=== PATIENT | female | born 1945 | race Caucasian/White ===

== ENCOUNTER → 2017-10-22 06:24 | Outpatient (CLI) | payer MEDICARE, OTHER, SELFPAY ==
--- NOTE | 2017-10-22 08:57 | STRESSREP ---
Stress Test Report Pharmacologic myocardial perfusion stress test. 72-year-old lady with a history of chest pain. Stress protocol: Resting EKG demonstrates normal sinus rhythm with a rate of 72 bpm normal intervals and noted resting blood pressure is 178/78 mmHg. 0.4 mg of regadenoson was infused per usual protocol followed by rapid intravenous saline flush injection continuous EKG monitoring was performed. The maximum heart rate attained was 91 bpm which was 60% of the maximum predicted heart rate the maximum workload attained was 1 metabolic equivalent. At rest there were no ST or T-wave changes noted to suggest ischemia and at peak infusion no ST or T-wave changes were noted suggest ischemia. The resting blood pressure was 178/78. Myocardial perfusion protocol. 12.0 mCi of technetium 99m sestamibi was injected at rest. 0.4 mg regadenoson was infused per usual protocol. At peak infusion 34.0 mCi of technetium 99m sestamibi was injected. Stress images were obtained. Stress and rest images were reconstructed and compared in the short axis vertical long and horizontal long axis. Gated images were also obtained. Perfusion SPECT analysis: Review of the stress images demonstrate normal uptake of tracer noted in all areas of the myocardium. The resting images similarly demonstrate normal uptake of tracer noted in all areas of the myocardium. No areas of reversibility are noted suggest ischemia. Gated SPECT analysis. Gated ejection fraction is 76%. Conclusion: Normal pharmacologic myocardial perfusion stress test. Preserved ejection fraction.
--- NOTE | 2017-10-22 09:01 | STRESSREP_ITS ---
Stress Test Report Pharmacologic myocardial perfusion stress test. 72-year-old lady with a history of chest pain. Stress protocol: Resting EKG demonstrates normal sinus rhythm with a rate of 72 bpm normal intervals and noted resting blood pressure is 178/78 mmHg. 0.4 mg of regadenoson was infused per usual protocol followed by rapid intravenous saline flush injection continuous EKG monitoring was performed. The maximum heart rate attained was 91 bpm which was 60% of the maximum predicted heart rate the maximum workload attained was 1 metabolic equivalent. At rest there were no ST or T-wave changes noted to suggest ischemia and at peak infusion no ST or T- wave changes were noted suggest ischemia. The resting blood pressure was 178/ 78. Myocardial perfusion protocol. 12.0 mCi of technetium 99m sestamibi was injected at rest. 0.4 mg regadenoson was infused per usual protocol. At peak infusion 34.0 mCi of technetium 99m sestamibi was injected. Stress images were obtained. Stress and rest images were reconstructed and compared in the short axis vertical long and horizontal long axis. Gated images were also obtained. Perfusion SPECT analysis: Review of the stress images demonstrate normal uptake of tracer noted in all areas of the myocardium. The resting images similarly demonstrate normal uptake of tracer noted in all areas of the myocardium. No areas of reversibility are noted suggest ischemia. Gated SPECT analysis. Gated ejection fraction is 76%. Conclusion: Normal pharmacologic myocardial perfusion stress test. Preserved ejection fraction.
== END ==
PROVIDERS: Family Provider Internal Medicine; PCP Internal Medicine; Visit Provider Internal Medicine
DX: R06.02 Shortness of breath (principal)
CPT/HCPCS: 78452; 93017; A9500; A4216; J2785

== ENCOUNTER → 2017-11-02 07:30 | Outpatient (CLI) | payer MEDICARE, OTHER, SELFPAY ==
--- NOTE | 2017-11-02 07:33 | CT_ITS ---
STUDY: CTA CHEST REASON FOR EXAM: Female, 72 years old. Shortness of breath. Cough. Hoarseness. RADIATION DOSAGE (If Supplied By Facility): CTDIvol = ( 13.12 ) mGy, DLP = ( 649.06 ) mGycm TECHNIQUE: The examination was performed with the intravenous administration of 100CC ml of Isovue 370 contrast material. Post-processing of the angiographic images was performed, with multiplanar reformation and 3D reconstruction. Individualized dose optimization techniques were used for this CT. COMPARISON: None. FINDINGS: Small bilateral benign appearing axillary lymph nodes. Normal enhancement of the main pulmonary artery and right and left pulmonary arteries. Normal enhancement of the bilateral peripheral pulmonary arteries. There is no demonstrated pulmonary embolism. There is atherosclerotic calcification of the aortic arch with tortuosity. There is no demonstrated aortic dissection. There are calcifications of the coronary arteries. Normal mediastinum. Normal hilar regions. Normal visualized trachea and bronchi. The lungs are well expanded. Calcified granuloma in the left lower lobe. Normal pleura. Normal chest wall structures. There are degenerative changes of thoracic spine. Normal visualized upper abdomen. CT/CTA Chest W/WO Contrast IMPRESSION: No acute abnormality is seen. Electronically Signed: Aden Stiles MD at 8:39 EST Tel [phone], Service support ,
== END ==
PROVIDERS: Family Provider Internal Medicine; PCP Internal Medicine; Visit Provider Internal Medicine Cardiovascular Disease
DX: R06.09 Other forms of dyspnea (principal); I26.99 Other pulmonary embolism without acute cor pulmonale
CPT/HCPCS: 71275; Q9967

== ENCOUNTER → 2022-01-15 | Outpatient (CLI) | payer MEDICARE, OTHER, SELFPAY ==
[2022-01-15] MEDS: Methacholine Chloride 18 ml neb kit INHALATION (13:06)
--- NOTE | 2022-01-15 14:49 | BRONCHALL_ITS ---
Bronchoprovocation Challenge Bronchoprovocation Challenge Bronchoprovocation Challenge: BRONCHOPROVOCATION STUDY INTERPRETATION Brief HPI: Patient is a 76 year old female, currently under the care of Dr. Arora, who presents to [facility] for a bronchoprovocation study secondary to diagnosis of cough. Respiratory therapist reports good effort and reproducible results. Interpretation: Initial spirometry showed no large airways obstructive ventilatory defect. The patient was then given increasingly concentrated doses of methacholine in a stepwise/standardized fashion, using a modified ATS protocol. The patient?s maximum reduction in FEV1 was 14 percent predicted. Impression: Negative Bronchoprovocation study. This is NOT consistent with the diagnosis of asthma.
== END | disposition home or self-care (01) ==
LOC: PSN 12:37
PROVIDERS: PCP Internal Medicine; Referring Provider Internal Medicine; Visit Provider Internal Medicine
DX: R94.2 Abnormal results of pulmonary function studies (principal); R05.9 Cough, unspecified
CPT/HCPCS: 94070; 95070

== ENCOUNTER → 2023-06-10 | Outpatient (CLI) | payer MEDICARE, OTHER, SELFPAY ==
[2023-06-10 16:16] LABS: Pathologist Comment May follow
[2023-06-10 16:50] LABS: Erythrocyte Sedimentation Rate 6 mm/hr (0-30)
[2023-06-10 16:52] LABS: Absolute Lymphocyte Count 2.05 X10^3/uL (0.83-4.51); Absolute Neutrophil Count 4.4 X10^3/uL (2.0-7.7); Basophil# 0.03 X10^3/uL; Basophil% 0.4 % (0-1); Eosinophil# 0.15 X10^3/uL; Eosinophils% 2.1 % (0-5); Hematocrit 43.4 % (37-47); Hemoglobin 13.4 g/dL (12.0-15.0); Lymphocyte # 2.05 X10^3/ul (0.83-4.51); Lymphocyte % 28.5 % (19-41); Mean Corp Hgb Conc 30.9 g/dL (32-36); Mean Corpuscular Hgb 29.5 pg (27.0-32.0); Mean Corpuscular Volume 95.4 fL (81-99); Mean Platelet Vol. 9.8 fl (6.2-12.0); Monocyte# 0.53 X10^3/uL; Monocyte% 7.4 % (0-10); NRBC Flagged by Analyzer 0 % (0-5); Neutrophil # 4.41 X10^3/uL (2.7-7.7); Neutrophil % 61.2 % (47-70); Platelet Count 315 K/mm3 (150-450); RBC Distribution Width CV 13.5 % (11.6-14.6); RBC Distribution Width SD 47.7 fl (35.1-43.9); Red Blood Count 4.55 M/mm3 (4.2-5.4); White Blood Count 7.2 K/mm3 (4.4-11.0)
[2023-06-10 17:18] LABS: Synovial Fld Mononuclear WBC # 0.072 10^3/ul; Synovial Fld Mononuclear WBC % 82.7 %; Synovial Fld Polynuclear WBC # 0.015 10^3/uL; Synovial Fld Polynuclear WBC % 17.3 %
[2023-06-10 17:51] LABS: RBC /Synovial Fluid 0.003 10^6/uL (0)
[2023-06-10 18:00] LABS: CRP 5.24 mg/L (0.0-3.0)
[2023-06-10 20:04] LABS: AUTO B FLUID DILUENT BKGD CT WBC <0.1 RBC <0.01 (W<.1,R<.01); CRYSTALS, BODY FLUID NO CRYSTALS SEEN
[2023-06-10 20:05] LABS: Appearance /Synovial Fluid Clear (CLEAR); Color / Synovial Fluid Yellow (Pale Yellow); Source / Synovial Fluid RT KNEE; Source- Body Fluid SYNOVIAL
[2023-06-10 20:14] LABS: Lymph 20 %; Monocyte /Synovial Fluid 56 %; Neutrophil 24 % (0-25)
[2023-06-10 20:17] LABS: Body Fluid QC Type(s) BF3Q,BF4Q
[2023-06-14 09:58] LABS: Pathologist Review Reviewed
== END | disposition home or self-care (01) ==
LOC: LAB 16:09
PROVIDERS: PCP Internal Medicine; Referring Provider Orthopaedic Surgery; Visit Provider Orthopaedic Surgery
DX: M17.0 Bilateral primary osteoarthritis of knee (principal); M25.561 Pain in right knee
CPT/HCPCS: 36415; 85025; 85652; 86140; 87070; 87075; 87205; 89050; 89051; 89060

== ENCOUNTER → 2023-08-19 | Outpatient (CLI) | payer MEDICARE, OTHER, SELFPAY ==
--- NOTE | 2023-08-19 17:34 | CT_ITS ---
EXAM: CT RIGHT LOWER EXTREMITY WITHOUT INTRAVENOUS CONTRAST CLINICAL INDICATION: UNILATERAL PRIMARY OSTEOARTHRITIS TECHNIQUE: Helically acquired images were obtained of the right lower extremity without intravenous contrast. 2-D reformats were performed by the technologist. CTDIvol = ( 19.07 ) mGy, DLP = ( 1357.04 ) mGycm This CT exam was performed using one or more of the following dose reduction techniques: automated exposure control, adjustment of the mA and/or kV according to patient size, and/or use of iterative reconstruction technique. COMPARISON: December 30, 2016 FINDINGS: BONES/JOINTS: Tricompartmental osteoarthrosis of the knee, severe at the medial femorotibial compartment. Moderate osteoarthrosis of the hip joint. Moderate suprapatellar joint effusion. Prominent plantar and posterior calcaneal enthesophytes. Ankle mortise is intact with no osteochondral lesions at the tibiotalar articulation. No acute or healing fracture or malalignment. No osteonecrosis. No other unusual lytic or sclerotic lesions of bone. SOFT TISSUES: Unremarkable. No soft tissue swelling or gas. No radiopaque foreign body. VASCULATURE: Peripheral vascular calcifications. REPRODUCTIVE: Multiple calcified fibroids of the uterus. No adnexal masses or free fluid in the pelvis. CT/Extremity Lower without Contra IMPRESSION: 1. Tricompartmental osteoarthrosis of the knee, severe at the medial femorotibial compartment. 2. Moderate suprapatellar joint effusion. 3. Fibroid uterus. Electronically Signed: Hasmukh Elizalde MD at 23:14 [facility] ,
== END | disposition home or self-care (01) ==
PROVIDERS: PCP Internal Medicine; Referring Provider Orthopaedic Surgery; Visit Provider Orthopaedic Surgery
DX: M17.0 Bilateral primary osteoarthritis of knee (principal)
CPT/HCPCS: 73700

== ENCOUNTER → 2023-09-24 | Outpatient (CLI) | payer MEDICARE, OTHER, SELFPAY ==
--- OUTSIDE RECORDS SUMMARY | 2023-09-24 12:11 | XMS RPT_ITS | CCD ---
Author Name Unknown Address [address] [place] [address] Organization [facility] Care Team Providers Care Vehicle Window Tinter Name Role Phone ADRY MALDONADO E Unavailable Unavailable GANTA, MARI Unavailable Unavailable ADRY MALDONADO Unavailable Unavailable IMCA Unavailable Unavailable IMCA Unavailable Unavailable ADRY MALDONADO Unavailable Unavailable ADRY MALDONADO Unavailable Unavailable IMCA Unavailable Unavailable Mari Arora MD Primary Care Provider [facility], [facility] Unavailable Mari Arora MD Primary Care Provider [facility], [facility] Unavailable Mari Arora MD Primary Care Provider [facility], [facility] Unavailable Mari Arora MD Primary Care Provider OLDER, MONSERRAT Referring Unavailable GANTA, MARI Primary Care Unavailable OLDER, MONSERRAT Attending Unavailable GANTA, MARI Primary Care Unavailable OLDER, MONSERRAT Referring Unavailable GANTA, MARI Primary Care Unavailable CARLOS HERNANDEZ Referring Unavailable GANTA, MARI Primary Care Unavailable GANTA, MARI Primary Care Unavailable OLDER, MONSERRAT Attending Unavailable GANTA, MARI Primary Care Unavailable OLDER, MONSERRAT Referring Unavailable GANTA, MARI Primary Care Unavailable OLDER, MONSERRAT Attending Unavailable GANTA, MARI Primary Care Unavailable TESTRAKE, RENETTA Attending Unavailable GANTA, MARI Referring Unavailable GANTA, MARI Primary Care Unavailable TESTRAKE, RENETTA Referring Unavailable GANTA, MARI Primary Care Unavailable OLDER, MONSERRAT Attending Unavailable GANTA, MARI Primary Care Unavailable Allergies Allergy Classification Reported Allergen(s) Allergy Type Date of Onset Reaction(s) Facility (20 sources) hydrALAZINE; Translations: [HYDRALAZINE] Drug Allergy 04-17-20 14 [facility] Repository (20 sources) hydroCHLOROthiazide / lisinopril; Translations: [LISINOPRIL-HYDROCHLOR OTHIAZIDE] Drug Allergy 03-10-20 [facility] Repository (20 sources) magnesium; Translations: [MAGNESIUM] Drug Allergy 12-22-19 14 [facility] Repository (3 sources) OTHER; Translations: [OTHER] Propensity to adverse reactions (disorder) 03-19-20 [facility] Repository (20 sources) PRINIZIDE [Other] Propensity to adverse reactions 03-19-20 [facility] Work Phone: (15 sources) predniSONE; Translations: [PREDNISONE] Drug Allergy 12-31-19 Itching [facility] Medications Current Medications Medication Drug Class(es) Dates Sig (Normalized) Sig (Original) traMADol hydrochloride 50 mg oral tablet (3 sources) Opioid Agonist Start: 06-11-2023 End: 06-18-2023 take 1 tablet by mouth twice daily as needed for pain traMADol (ULTRAM) 50 mg tablet Indications: Right knee pain, unspecified chronicity Take 1 tablet by mouth two times a day as needed for pain for up to 7 days. 14 tablet 0 06/11/2023 06/18/2023 Active Completed/Discontinued Medications Medication Drug Class(es) Dates Sig (Normalized) Sig (Original) [id number] 200 actuat albuterol 0.09 mg/actuat metered dose inhaler (13 sources) beta2-Adrenergic Agonist Start: 10-09-2022 take 2 puff(s) by inhalation every six hours as needed albuterol HFA (PROVENTIL HFA, VENTOLIN HFA) 90 mcg/actuation inhaler Indications: Wheezing Inhale 2 Puffs as instructed every 6 hours as needed. 1 Each 2 10/09/2022 Active Problems Active Problems Problem Classification Problem Date Documented Da te Episodic/Chronic Asthma (1 source) Cough variant asthma; Translations: [Cough variant asthma] Chronic Chronic kidney disease (2 sources) Chronic kidney disease stage 3A ; Translations: [Stage 3a chronic kidney disease (HCC)] Chronic Chronic kidney disease (1 source) Chronic kidney disease; Translations: [Stage 3a chronic kidney disease (HCC)] Onset: 03-11-2023 Diabetes mellitus with complications (20 sources) Type 2 diabetes mellitus; Translations: [Type 2 diabetes mellitus with other diabetic kidney complication] Onset: 11-22-2009 Chronic Disorders of lipid metabolism (20 sources) Mixed hyperlipidemia; Translations: [Mixed hyperlipidemia] Onset: 05-25-2006 06-12-2015 Chronic Essential hypertension (20 sources) Essential (primary) hypertension; Translations: [Essential hypertension] Onset: 03-10-2006 Chronic Other connective tissue disease (2 sources) Calcaneal spur of right foot; Translations: [Calcaneal spur, right foot] Episodic Other connective tissue disease (2 sources) Plantar fasciitis; Translations: [Plantar fascial fibromatosis] Episodic Other lower respiratory disease (1 source) Cough; Translations: [Cough] Episodic Other non-traumatic joint disorders (2 sources) Pain in right knee; Translations: [Pain in joint, lower leg] Onset: 06-11-2023 06-11-2023 Episodic Other nutritional; endocrine; and metabolic disorders (20 sources) Body mass index 40+ - severely obese; Translations: [Morbid (severe) obesity due to excess calories] Onset: 03-10-2006 07-18-2021 Chronic Other skin disorders (20 sources) Localized scleroderma; 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]] Onset: 09-27-2008 09-27-2008 Chronic Spondylosis; intervertebral disc disorders; other back problems (20 sources) Cervical spondylosis; Translations: [Spondylosis without myelopathy or radiculopathy, cervical region] Onset: 10-23-2010 10-23-2010 Chronic Thyroid disorders (20 sources) Hypothyroidism; Translations: [Hypothyroidism, unspecified] Onset: 01-22-2021 01-22-2021 Chronic Unclassified (1 source) Unknown / UNK(Unknown) Onset: 06-12-2015 Past or Other Problems Problem Classification Problem Date Documented Da te Episodic/Chronic Genitourinary symptoms and ill-defined conditions (20 sources) Albuminuria ; Translations: [Proteinuria, unspecified] Onset: 06-12-2015 06-12-2015 Episodic Other connective tissue disease (20 sources) Pain in left lower limb; Translations: [Pain in left leg] Onset: 12-25-2016 12-25-2016 Episodic Other connective tissue disease (1 source) Pain in left arm; Translations: [Pain of left upper extremity] Onset: 01-20-2023 Episodic Other connective tissue disease (1 source) Calcaneal spur, right foot; Translations: [Calcaneal spur of right foot] Onset: 09-23-2022 Episodic Other connective tissue disease (1 source) Plantar fascial fibromatosis; Translations: [Plantar fasciitis] Onset: 09-23-2022 Episodic Other connective tissue disease (1 source) Pain in right foot; Translations: [Pain in right foot] Onset: 09-22-2022 Episodic Other lower respiratory disease (1 source) Other forms of dyspnea; Translations: [Other forms of dyspnea] Onset: 10-27-2017 Episodic Other lower respiratory disease (1 source) Wheezing; Translations: [Wheezing] Onset: 10-09-2022 Episodic Other lower respiratory disease (1 source) Chronic cough; Translations: [Chronic cough] Onset: 10-09-2022 Episodic Other screening for suspected conditions (not mental disorders or infectious disease) (4 sources) Pulmonary function studies abnormal; Translations: [Abnormal results of pulmonary function studies] Onset: 12-10-2022 Episodic Pulmonary heart disease (1 source) Other pulmonary embolism without acute cor pulmonale; Translations: [Other pulmonary embolism without acute cor pulmonale] Onset: 10-27-2017 Episodic Results Test Name Value Interpretation Reference Range Facil it Vital Signs Date Time Vital Sign Value Performing Clinician Lee small 06-11-2023 13:43-0400 Diastolic blood pressure 76 mm[Hg] Monserrat Older HEALTH SPECIALIST.KST OPERATOR Work Phone: [facility] 06-11-2023 13:43-0400 Systolic blood pressure 143 mm[Hg] Monserrat Older HEALTH SPECIALIST.KST OPERATOR Work Phone: [facility] 06-11-2023 13:08-0400 Body weight 88.45 kg Monserrat Older HEALTH SPECIALIST.KST OPERATOR Work Phone: [facility] 06-11-2023 13:08-0400 Heart rate 92 /min Monserrat Older HEALTH SPECIALIST.KST OPERATOR Work Phone: [facility] 06-11-2023 13:08-0400 Respiratory rate 16 /min Monserrat Older HEALTH SPECIALIST.KST OPERATOR Work Phone: [facility] 06-11-2023 13:08-0400 SaO2% (BldA) [Mass fraction] 99 % Monserrat Older HEALTH SPECIALIST.KST OPERATOR Work Phone: [facility] 03-11-2023 14:04-0400 Diastolic blood pressure 72 mm[Hg] Monserrat Older HEALTH SPECIALIST.KST OPERATOR Work Phone: [facility] 03-11-2023 14:04-0400 Systolic blood pressure 130 mm[Hg] Monserrat Older HEALTH SPECIALIST.KST OPERATOR Work Phone: [facility] 03-11-2023 13:29-0400 Body weight 89.36 kg Monserrat Older HEALTH SPECIALIST.KST OPERATOR Work Phone: [facility] 03-11-2023 13:29-0400 Heart rate 80 /min Monserrat Older HEALTH SPECIALIST.KST OPERATOR Work Phone: [facility] 03-11-2023 13:29-0400 Respiratory rate 16 /min Monserrat Older HEALTH SPECIALIST.KST OPERATOR Work Phone: [facility] 12-10-2022 12:41-0400 Body weight 90.27 kg Monserrat Older HEALTH SPECIALIST.KST OPERATOR Work Phone: [facility] 12-10-2022 12:41-0400 Diastolic blood pressure 78 mm[Hg] Monserrat Older HEALTH SPECIALIST.KST OPERATOR Work Phone: [facility] 12-10-2022 12:41-0400 Heart rate 68 /min Monserrat Older HEALTH SPECIALIST.KST OPERATOR Work Phone: [facility] 12-10-2022 12:41-0400 Respiratory rate 16 /min Monserrat Older HEALTH SPECIALIST.KST OPERATOR Work Phone: [facility] 12-10-2022 12:41-0400 Systolic blood pressure 148 mm[Hg] Monserrat Older HEALTH SPECIALIST.KST OPERATOR Work Phone: [facility] 01-06-2022 13:44-0400 Diastolic blood pressure 68 mm[Hg] Mari Arora MD Work Phone: [facility] 01-06-2022 13:44-0400 Systolic blood pressure 118 mm[Hg] Mari Arora MD Work Phone: [facility] 01-06-2022 12:47-0400 Body temperature 96.6 [degF] Mari Arora MD Work Phone: [facility] 01-06-2022 12:47-0400 Body weight 93.53 kg Mari Arora MD Work Phone: [facility] 01-06-2022 12:47-0400 Heart rate 80 /min Mari Arora MD Work Phone: [facility] 01-06-2022 12:47-0400 Respiratory rate 22 /min Mari Arora MD Work Phone: [facility] 01-06-2022 12:47-0400 SaO2% (BldA) [Mass fraction] 94 % Mari Arora MD Work Phone: [facility] Encounters Encounter Date Encounter Type Care Provider Facility Start: 07-12-2023 Refill Monserrat Hathaway HEALTH SPECIALIST .KST OPERATOR Work Phone: [facility] Procedures Date Procedure Procedure Detail Performing Clinician Start: 02-12-2022 ALONSO SCREENING W SHARDA Leger HEALTH SPECIALIST.[employer]AF[employer]ATING AND VENTILATING Work Phone: Start: 02-12-2022 Mammography Screen Wst r Start: 08-12-2021 Adult depression scr eening assessment Triny Vazquez [facility] Work Phone: Start: 02-06-2021 Mammography Triny corona [facility] Work Phone: Start: 10-06-2012 Colonoscopy Triny corona [facility] Work Phone: Plan of Treatment Date Care Activity Detail Author Start: 05-15-2031 Urine microalbumin profile [facility] Start: 12-15-2025 COLOGUARD (FIT-DNA) COLOGUARD (FIT-D NA) [facility] Start: 06-11-2024 Annual PCP Team Phlebotomy Supervisor max Disease Visit Annual PCP Team Chronic Disease Visit [facility] Start: 06-11-2024 Hepatitis B Vaccine (1 of 3 - Risk 3-dose series) Hepatitis B Vaccine (1 of 3 - Risk 3-dose series) [facility] Immunizations Immunization Date Immunization Notes Care Provider Francia alexander 06-23-2023 COVID-19 vaccine, ag e 12+ yr, season (MODERNA) Monserrat Older HEALTH SPECIALIST.KST OPERATOR Work Phone: [facility] 06-02-2023 influenza, high dose seasonal, preservative-free Monserrat Older HEALTH SPECIALIST.KST OPERATOR Work Phone: [facility] Work Phone: 05-26-2022 COVID-19 booster vaccine, age 12+ yr, bivalent (PFIZER-BIONTECH) Mari Arora MD Work Phone: [facility] Work Phone: 05-26-2022 influenza, high dose seasonal, preservative-free Mari Arora MD Work Phone: [facility] Work Phone: 07-10-2021 COVID-19 vaccine, ag e 12+ yr (PFIZER-BIONTECH - PURPLE TOP) [facility] 05-15-2021 influenza, high dose seasonal, preservative-free Triny [facility] Work Phone: [facility] 05-15-2021 tetanus toxoid, redu donis diphtheria toxoid, and acellular pertussis vaccine, adsorbed [facility] Work Phone: [facility] 12-05-2020 COVID-19 vaccine, fu ll dose (MODERNA) Triny [facility] Work Phone: [facility] Work Phone: 11-07-2020 COVID-19 vaccine, fu ll dose (MODERNA) Triny [facility] Work Phone: [facility] Work Phone: 06-20-2020 influenza, seasonal, injectable [facility] 02-24-2019 zoster vaccine recombinant Triny [facility] Work Phone: [facility] 12-18-2018 zoster vaccine recombinant Triny Vazquez [facility] Work Phone: [facility] 05-30-2018 influenza, high dose seasonal, preservative-free Triny Vazquez [facility] Work Phone: [facility] 06-06-2016 influenza, high dose seasonal, preservative-free Triny Vazquez [facility] Work Phone: [facility] 06-12-2015 influenza, high dose seasonal, preservative-free Triny Vazquez [facility] Work Phone: [facility] 06-12-2015 pneumococcal conjuga te vaccine, 13 valent Triny Vazquez [facility] Work Phone: [facility] 02-28-2015 pneumococcal polysaccharide vaccine, 23 valent Triny Vazquez [facility] Work Phone: [facility] 05-24-2014 zoster vaccine, live Triny richmond [facility] Work Phone: [facility] 06-05-2013 influenza virus vacc ine, unspecified formulation Triny Vazquez [facility] Work Phone: [facility] 05-26-2012 influenza virus vacc ine, unspecified formulation Triny Vazquez [facility] Work Phone: [facility] Work Phone: 05-29-2011 influenza virus vacc ine, unspecified formulation Triny Vazquez [facility] Work Phone: [facility] Work Phone: 07-12-2009 influenza virus vacc ine, unspecified formulation Triny Vazquez [facility] Work Phone: [facility] Work Phone: 06-07-2008 influenza virus vacc ine, unspecified formulation Triny Vazquez [facility] Work Phone: [facility] Work Phone: 06-07-2008 pneumococcal polysaccharide vaccine, 23 valent Triny Andradego [facility] Work Phone: [facility] Work Phone: 10-05-2006 tetanus toxoid, redu donis diphtheria toxoid, and acellular pertussis vaccine, adsorbed Triny [facility] Work Phone: [facility] Work Phone: 07-15-2006 influenza virus vacc ine, unspecified formulation Triny Vazquez [facility] Work Phone: [facility] Work Phone: Payers Date Payer Category Payer [employer] ( and others) [id number] 2023 Unknown FOR LIFE [id number] 2023-Present [phone] [place] [id number] Indemnity [id number] 2012 Medicare MEDICARE MEDICAR E A AND B [id number] 2012-Present [phone] [id number] [place] [id number] Medicare [id number] 2012 Medicare MEDICARE MEDICAR E A AND B [id number] 2012-Present [phone] [place] [address] Medicare [id number] 2012 Medicare [id number] 1994 Unknown FOR LIFE [id number] 1994-Present [phone] [place] [address] Indemnity [id number] Medicare [id number] Social History Date Type Detail Facility Tobacco smoking stat [facility] Never smoked tobacco [facility] Work Phone: Start: 10-23-2021 End: 03-11-2023 Alcohol intake Current non-drinker of alcohol (finding) [facility] Start: 1945 Sex Assigned At Not on file [facility] Start: 11-04-2021 End: 02-12-2022 Exposure to SARS-CoV-2 (event) Not sure [facility] Start: 12-10-2022 End: 03-11-2023 History of Social function [facility] Work Phone: Start: 12-10-2022 End: 03-11-2023 Tobacco use panel [facility] Work Phone: Adult Depression Screening Assessment 0 [facility] Work Phone: Medical Equipment Procedure Code Equipment Code Equipment Origin al Text Equipment Identifier Dates Start: 01-22-2021 Clinical Notes 10-23-2010 to 07-12-2023 Telephone Encounter - Jessy Arevalo E - 07/12/2023 12:27 PM ESTTelephone Encounter - Sandy Barlow - 07/12/2023 10:57 AM ESTTelephone Encounter - Hillary Lund LPN - 06/15/2023 3:33 PM EDT Note Date & Type Note Facility 07-12-2023 Miscellaneous Notes Patient has been identified by name and date of : No Patient phones for refill(s): Requested Prescriptions Pending Prescriptions Disp Refills carvedilol (COREG) 25 mg tablet 180 tablet 1 Sig: Take 1 tablet by mouth two times a day. Date of last office visit in primary care: 06/11/2023 Date of next office visit in primary care: Visit date not found Last 2 Encounter Wt Readings: Date: Wt: 06/11/2023 88.5 kg (195 lb) 03/11/2023 89.4 kg (197 lb) Previous labs/tests for medication: Blood Pressure: BUN (mg/dL) Date Value 06/09/2023 16 08/11/2021 13 Sodium (mmol/L) Date Value 06/09/2023 140 08/11/2021 140 Last 1 Encounter BP Readings: Date: BP: 06/11/2023 143/76[BP Eric[ Please advise. Thank you. Jessy Arevalo. Pharmacy verified in Epic Patient has been identified by name and date of : Yes Patient aware RX will be sent to pharmacy. No need to notify patient. Patient phones for refill(s): Requested Prescriptions Pending Prescriptions Disp Refills carvedilol (COREG) 25 mg tablet 180 tablet 1 Sig: Take 1 tablet by mouth two times a day. Date of last office visit : 06/11/2023 Date of next office visit : Visit date not found Last 2 Encounter Wt Readings: Date: Wt: 06/11/2023 88.5 kg (195 lb) 03/11/2023 89.4 kg (197 lb) Not applicable Please advise. Sandy Abdalla Pss documented in this encounter [facility] 06-15-2023 Miscellaneous Notes Pt was given info from provider & states understanding. Pt will contact ortho & ask for their recommendation. Hillary Lund LPN Called and left a voicemail for the patient to call back and ask for a nurse to receive the providers message. Please look at recent labs from [facility] as the fluid from her knee was sent to be cultured . If she has not talked to ortho, I am unsure how she knows there is for sure no infection. Patient needs to call orthopedic as this pain is worsening which is concerning. Taking narcotics may cover up this pain and underlying cause may get worse. Thank you Monserrat Hathaway APRN.KST OPERATOR Pt notified of provider message. Pt reports she has tried numerous times to get a hold of surgeons office but does not get a call back. Pt reports the tramad[facility] C[facility]. Pt is asking if there is something else can be prescribed. Pt reports no infection was found. Nilsa Roa LPN Called and left a voicemail for the patient to call back and ask for a nurse to receive the providers message. Pt did say earlier that no infection was found in the fluid. Has patient heard back from her orthopedic surgeon or talked to them that the pain is severely increasing? They were checking fluid for possible infection. This constant increase in pain is not normal. Monserrat Hathaway APRN.DEAN Pt saw Monserrat Hathaway on Monday 06/11 and was prescribed Tramadol for right knee pain. She states it isn't helping at all. She can't even tell she is taking anything. Pain is severe 05/16. Pt is talking normal with nurse. She states she is close to going to the ER. Pt states she cannot do anything at all at home due to the pain and is requesting something else to help with the pain. Pt uses [facility]. Please review and advise. documented in this encounter [facility] 06-15-2023 Miscellaneous Notes Patient has been identified by name and date of : Yes Patient phones for refill(s): Requested Prescriptions Pending Prescriptions Disp Refills montelukast (SINGULAIR) 10 mg tablet 90 tablet 1 Sig: Take 1 tablet by mouth daily at bedtime. Date of last office visit in primary care:Visit date not found Date of next office visit in primary care: Visit date not found Last 2 Encounter Wt Readings: Date: Wt: 06/11/2023 88.5 kg (195 lb) 03/11/2023 89.4 kg (197 lb) Previous labs/tests for medication: Not applicable Please advise. Thank you. Merlene Cleaning LPN. Patient has been identified by name and date of : Yes Last office visit in this department: Visit date not found RX INSTRUCTIONS: Pharmacy initiated this request. No need to notify patient. Patient phones requesting refills as follows: Requested Prescriptions Pending Prescriptions Disp Refills montelukast (SINGULAIR) 10 mg tablet 90 tablet 1 Sig: Take 1 tablet by mouth daily at bedtime. Please review and advise. Collette Jackson documented in this encounter [facility] 06-11-2023 Note HNO ID: [id number] Author: Monserrat Hathaway APRN.KST OPERATOR Service: ? Author Type: Nurse Practitioner Type: Progress Notes Filed: 06/12/2023 8:02 AM Note Text: CC: Patient presents with: Recheck: 3 month follow up HPI Swathi Otero is a 78 year old female who presents today for routine follow up. DIABETES MELLITUS: Ms. Otero denies excessive thirst or increased frequency of urination, chest pain or dyspnea , numbness, tingling or pain in extremities, new or unusual visual symptoms, low sugar/hypoglycemic reactions, weight loss/gain, lightheadedness/dizziness, and bowel changes/loose stools. Follows a diabetic diet most of the time. She is compliant with medication(s) and is tolerating med(s) without any side effects. She reports checking her glucose on a once a day schedule with sugars in the 100s-110s range. Patient's last HgA1C was Hemoglobin A1C (%) Date Value 06/09/2023 6.5 03/10/2023 7.4 08/11/2021 7.4 05/08/2021 7.4 ) Sees Dr. Waller at [facility] every three months. HTN and HLD: Ms. Otero indicates that she is feeling well and denies any symptoms referable to elevated blood pressure. Specifically denies headache, chest pain, palpitations, dyspnea, and peripheral edema. Patient denies any side effects of her medication(s) and is compliant with their regimen. She does not check BP's generally. Swathi denies regular aerobic exercise. She watches her diet for sodium, low fat and low cholesterol most of the time. Last 3 Encounter BP Readings: Date: BP: 06/11/2023 138/90 03/11/2023 130/72 01/20/2023 142/76 CKD: Has avoided ibuprofen, stayed hydrated, and has had improvement in kidney function with jardiance. Chronic Bilateral knee pain with difficulty walking but severe acute on chronic right knee pain. Tylenol does not help, ice does nothing, and neither did advil when she was taking it. Had a gel injection 3 weeks ago. Pain has been worse since. Ortho removed fluid from her knee to see if there is an infection along with blood work. Hoping the fluid removal will improve her pain but has not yet. Awaiting for knee replacement in September. Seeing Dr. Santiago at [facility]. All xrays and studies have been completed there. Pain is getting severe enough that she almost canceled appointment today because it is so painful to get ready and walk even with her cane. Has asked Dr. Santiago what else she could do for pain as nothing is helping and she is unable to tolerate anymore and her daily life is nonexistent because of this pain and her daily activities are extremely difficult. Also with difficulty sleeping because of the severe pain. Per patient she was instructed to discuss with her PCP for options. Hypothyroidism: taking medication as prescribed. Denies any abnormal change in weight or energy. REVIEW OF SYSTEMS See HPI PAST MEDICAL HISTORY Diagnosis Date Diabetes mellitus type 2, controlled (HCC) Essential hypertension, benign Pure hypercholesterolemia BORDERLINE PAST SURGICAL HISTORY Procedure Laterality Date COLONOSCOPY FLX DX W/COLLJ SPEC WHEN PFRMD 10/06/2012 Colonoscopy ALLERGIES Hctz [Lisinopril-Hydrochlorothiazide], Hydralazine, Magnesium, Prednisone, and Prinizide [Other] MEDICATIONS empagliflozin (JARDIANCE) 10 mg tablet Take 1 tablet by mouth once daily. Take 1 tablet once daily in the morning glipiZIDE (GLUCOTROL XL) 10mg 24 hr tablet Take 2 tablets by mouth once daily. montelukast (SINGULAIR) 10 mg tablet Take 1 tablet by mouth daily at bedtime. carvedilol (COREG) 25 mg tablet Take 1 tablet by mouth twice daily. valsartan (DIOVAN) 80 mg tablet Take 1 tablet by mouth once daily. levothyroxine (LEVOXYL) 50 mcg tablet Take 1 tablet by mouth once daily. Take on empty stomach. For Thyroid dulaglutide (TRULICITY) 4.5 mg/0.5 mL pen injector Inject 4.5 mg subcutaneously one time a week. lovastatin 40 mg tablet Take 1 tablet by mouth daily with dinner. metFORMIN ER (GLUCOPHAGE XR) 500 mg 24 hr tablet Take 1 tablet by mouth daily with breakfast. albuterol HFA (PROVENTIL HFA, VENTOLIN HFA) 90 mcg/actuation inhaler Inhale 2 Puffs as instructed every 6 hours as needed. amLODIPine (NORVASC) 10 mg tablet Take 1 tablet by mouth once daily. Aug Betamethasone Dipropionate (DIPROLENE) 0.05 % ointment Lancing Device with Lancets (Techstars) Use to check blood sugars as directed. blood sugar diagnostic (GrupHediyeUCH VERIO TEST STRIPS) test strip Use as instructed to check blood sugar twice daily E.11.65 latanoprost (XALATAN) 0.005 % ophthalmic solution timolol maleate (TIMOPTIC) 0.5 % ophthalmic solution lancets (SafedoX TOUCH Streyner) 33 gauge USE TO CHECK GLUCOSE TWICE DAILY. E11.65 ferrous sulfate EC 324 mg (65 mg iron) TbEC Take 324 mg by mouth every other day. melatonin 5 mg tablet Take 5 mg by mouth daily at bedtime. aspirin, enteric coated (ADULT LOW DOSE ASPIRIN) 81 mg EC tablet Take 1 tablet by mouth onc (more content not included)... [facility] 06-11-2023 History of Present illness Narrative CC: Patient presents with: Recheck: 3 month follow up HPI Swathi Otero is a 78 year old female who presents today for routine follow up. DIABETES MELLITUS: Ms. Otero denies excessive thirst or increased frequency of urination, chest pain or dyspnea , numbness, tingling or pain in extremities, new or unusual visual symptoms, low sugar/hypoglycemic reactions, weight loss/gain, lightheadedness/dizziness, and bowel changes/loose stools. Follows a diabetic diet most of the time. She is compliant with medication(s) and is tolerating med(s) without any side effects. She reports checking her glucose on a once a day schedule with sugars in the 100s-110s range. Patient's last HgA1C was Hemoglobin A1C (%) Date Value 06/09/2023 6.5 03/10/2023 7.4 08/11/2021 7.4 05/08/2021 7.4 ) Sees Dr. Waller at [facility] every three months. HTN and HLD: Ms. Otero indicates that she is feeling well and denies any symptoms referable to elevated blood pressure. Specifically denies headache, chest pain, palpitations, dyspnea, and peripheral edema. Patient denies any side effects of her medication(s) and is compliant with their regimen. She does not check BP's generally. Swathi denies regular aerobic exercise. She watches her diet for sodium, low fat and low cholesterol most of the time. Last 3 Encounter BP Readings: Date: BP: 06/11/2023 138/90 03/11/2023 130/72 01/20/2023 142/76 CKD: Has avoided ibuprofen, stayed hydrated, and has had improvement in kidney function with jardiance. Chronic Bilateral knee pain with difficulty walking but severe acute on chronic right knee pain. Tylenol does not help, ice does nothing, and neither did advil when she was taking it. Had a gel injection 3 weeks ago. Pain has been worse since. Ortho removed fluid from her knee to see if there is an infection along with blood work. Hoping the fluid removal will improve her pain but has not yet. Awaiting for knee replacement in September. Seeing Dr. Santiago at [facility]. All xrays and studies have been completed there. Pain is getting severe enough that she almost canceled appointment today because it is so painful to get ready and walk even with her cane. Has asked Dr. Santiago what else she could do for pain as nothing is helping and she is unable to tolerate anymore and her daily life is nonexistent because of this pain and her daily activities are extremely difficult. Also with difficulty sleeping because of the severe pain. Per patient she was instructed to discuss with her PCP for options. Hypothyroidism: taking medication as prescribed. Denies any abnormal change in weight or energy. REVIEW OF SYSTEMS See HPI PAST MEDICAL HISTORY Diagnosis Date Diabetes mellitus type 2, controlled (HCC) Essential hypertension, benign Pure hypercholesterolemia BORDERLINE PAST SURGICAL HISTORY Procedure Laterality Date COLONOSCOPY FLX DX W/COLLJ SPEC WHEN PFRMD 10/06/2012 Colonoscopy ALLERGIES Hctz [Lisinopril-Hydrochlorothiazide], Hydralazine, Magnesium, Prednisone, and Prinizide [Other] MEDICATIONS empagliflozin (JARDIANCE) 10 mg tablet Take 1 tablet by mouth once daily. Take 1 tablet once daily in the morning glipiZIDE (GLUCOTROL XL) 10mg 24 hr tablet Take 2 tablets by mouth once daily. montelukast (SINGULAIR) 10 mg tablet Take 1 tablet by mouth daily at bedtime. carvedilol (COREG) 25 mg tablet Take 1 tablet by mouth twice daily. valsartan (DIOVAN) 80 mg tablet Take 1 tablet by mouth once daily. levothyroxine (LEVOXYL) 50 mcg tablet Take 1 tablet by mouth once daily. Take on empty stomach. For Thyroid dulaglutide (TRULICITY) 4.5 mg/0.5 mL pen injector Inject 4.5 mg subcutaneously one time a week. lovastatin 40 mg tablet Take 1 tablet by mouth daily with dinner. metFORMIN ER (GLUCOPHAGE XR) 500 mg 24 hr tablet Take 1 tablet by mouth daily with breakfast. albuterol HFA (PROVENTIL HFA, VENTOLIN HFA) 90 mcg/actuation inhaler Inhale 2 Puffs as instructed every 6 hours as needed. amLODIPine (NORVASC) 10 mg tablet Take 1 tablet by mouth once daily. Aug Betamethasone Dipropionate (DIPROLENE) 0.05 % ointment Lancing Device with Lancets (Techstars) Use to check blood sugars as directed. blood sugar diagnostic (GrupHediyeUCH VERIO TEST STRIPS) test strip Use as instructed to check blood sugar twice daily E.11.65 latanoprost (XALATAN) 0.005 % ophthalmic solution timolol maleate (TIMOPTIC) 0.5 % ophthalmic solution lancets (Techstars) 33 gauge USE TO CHECK GLUCOSE TWICE DAILY. E11.65 ferrous sulfate EC 324 mg (65 mg iron) TbEC Take 324 mg by mouth every other day. melatonin 5 mg tablet Take 5 mg by mouth daily at bedtime. aspirin, enteric coated (ADULT LOW DOSE ASPIRIN) 81 mg EC tablet Take 1 tablet by mouth once daily. FAMILY HISTORY Problem Relation Age of Onset Arthritis Mother Emphysema Father FROM THIS Breast Cancer Paternal Aunt Diabetes Brother Social History Tobacco Use Smoking status: Never Smokeless tobacco: Never Vaping Use Vaping Use: Never used Substance Use Topics Alcohol use: No Drug use: No PHYSICAL EXAM BP 138/90 Pulse 92 Resp 16 Wt 88.5 kg (195 lb) SpO2 99% BMI 39.39 kg/m General Appearance: alert, obviously in pain. Has RLE elevated on chair and any movement causes grimacing and sometimes tears. Skin: Skin color, texture, turgor normal for age; No redness or increased warmth to knees Eyes: conjunctiva pink and moist, no icterus, sclera white, non-injected Lungs: Lungs clear to auscultation. No wheezing, rhonchi, rales. Heart: RRR without murmur, gallop, or rubs. No ectopy BLE Extremities: No deformities, edema, skin discoloration, clubbing or cyanosis. Good capillary refill. Bilateral knees without edema. Right knee with tenderness around patella Health maintenance reviewed with patient: Hepatitis B Vaccine(1 of 3 - Risk 3-dose series) Never done Dilated Retinal Exam due on 08/12/2022 BP Controlled (<130/80) due on 08/12/2022 Covid-19 Vaccine(5 - Moderna series) due on 09/25/2022 HbA1C due on 12/09/2023 Diabetic Foot Exam due on 03/11/2024 Annual PCP Team Chronic Disease Visit due on 03/11/2024 LDL Cholesterol due on 06/09/2024 DTaP,Tdap,Td Vaccine(3 - Td or Tdap) due on 05/15/2031 Bone Density Screening Completed Influenza Vaccine Completed Advance Directive Discussion Completed Depression Assessment Completed Hepatitis C Screening Completed Shingrix Vaccine Completed Pneumococcal Vaccine: 65+ Completed Mammogram Screening Discontinued Urine Albumin:Creatinine Ratio Discontinued Colorectal Cancer Screening Discontinued DATA REVIEWED: Most recent labs ASSESSMENT/PLAN: 1. Essential hypertension - ICD9: 401.9, ICD10: I10 (primary diagnosis) - Uncontrolled in office but in a great deal of pain. Follow up in 4 weeks to re-evaluate this. - Continue current medications - Recommend home blood pressure monitoring, to bring results to next visit - Encouraged sodium restriction, DASH or Mediterranean diet - Recommend regular aerobic exercise 2. Mixed hyperlipidemia - ICD9: 272.2, ICD10: E78.2 - Controlled - Continue current medications - Counseled on healthy diet and regular exercise - Discussed need for and benefit of weight loss. BMI 39.39 kg/(m^2) 3. Type 2 diabetes mellitus with microalbuminuria, without long-term current use of insulin (HCC) - ICD9: 250.40, 791.0, ICD10: E11.29, R80.9 - Controlled - Continue current medications - except stopping metformin in hopes to even further improve kidney function and increasing jardiance - Blood glucose monitoring on a once daily schedule - Counseled on healthy diet and regular exercise - Discussed need for and benefit of weight loss. BMI 39.39 kg/(m^2) 4. Stage 3a chronic kidney disease (HCC) - ICD9: 585.3, ICD10: N18.31 - eGFR: 59 improving and stable - Counseled on avoiding NSAIDs, adequate hydration 5. Right knee pain, unspecified chronicity - ICD9: 719.46, ICD10: M25.561 - severe acute on chronic. Will give small amount in tramadol until results are reviewed by ortho to see of any other cause of acute pain. - TRAMADOL 50 MG TABLET PDMP website checked and validated. All prescriptions have been APPROPRIATELY filled. No suspicious activity was identified. 06/11/2023 by Monserrat Hathaway APRN.CNP 6. Hypothyroidism, unspecified type - ICD9: 244.9, ICD10: E03.9 - asymptomatic and TSH in normal range - Instructed patient on importance of taking on an empty stomach either first thing in the morning or at bedtime. Prescription instructions reviewed with patient as applicable. Potential red flag symptoms discussed with the patient. Reviewed appropriate action plan to take if red flag symptoms occur. Patient agreeable to treatment plan. Monserrat Hathaway APRN.CNP documented in this encounter [facility] 04-26-2023 Miscellaneous Notes Seen by Monserrat Hathaway CNP. Note BS is controlled, continue unchanged for now. Pt called to reports she was put n a new medication Jardiance and calling with blood sugar readings 04-21-23 118 17 120 18- 117 04-24- 119 04-25- 121 04-26-23 113 Pt reports not having any side effects. Call pt only if there needs to be any changes. Mindy Moctezuma LPN documented in this encounter [facility] 03-11-2023 Note HNO ID: [id number] Author: Monserrat Hathaway APRN.KST OPERATOR Service: ? Author Type: Nurse Practitioner Type: Progress Notes Filed: 03/11/2023 2:20 PM Note Text: CC: Patient presents with: Recheck: 3 month follow up HPI Swathi Otero is a 78 year old female who presents today for routine follow up. DIABETES MELLITUS: Ms. Otero denies excessive thirst or increased frequency of urination, chest pain or dyspnea , numbness or pain in extremities, new or unusual visual symptoms, low sugar/hypoglycemic reactions, weight loss/gain, lightheadedness/dizziness, and bowel changes/loose stools. Follows a diabetic diet generally not very much. She is compliant with medication(s) and is tolerating med(s) without any side effects. She reports checking her glucose on a once a day schedule with sugars in the fasting 120s-140s range. Patient's last HgA1C was Hemoglobin A1C (%) Date Value 03/10/2023 7.4 12/02/2022 7.2 08/11/2021 7.4 05/08/2021 7.4 ) Last Ophthalmology exam was within the past 6 months at [facility]. Intermittent tingling to toes but very rare and does not even occur weekly and only lasts a few seconds. HTN: Ms. Oetro indicates that she is feeling well and denies any symptoms referable to elevated blood pressure. Specifically denies headache, chest pain, palpitations, dyspnea, and peripheral edema. Patient denies any side effects of her medication(s) and is compliant with their regimen. She does check BP's away from this office with average BP's in the 120s/70s range. Swathi denies regular aerobic exercise. She watches her diet for sodium, low fat and low cholesterol generally not very much. Last 3 Encounter BP Readings: Date: BP: 03/11/2023 138/72 01/20/2023 142/76 12/10/2022 148/78[Home cuff[ CKD: has been taking large amounts of ibuprofen for chronic knee pain she has been seeing orthopedic for. Hypothyroidism: Takes medications as ordered. Denies any abnormal changes in weight, changes in energy level, or intolerance to heat/cold. REVIEW OF SYSTEMS General: no fevers, no chills, no night sweats, no recurrent infections, no change in appetite, no change in energy, and no significant changes in weight Respiratory: no cough, no wheezing, no shortness of breath, no hemoptysis Cardiovascular: no chest pain, no chest pressure, no palpitations, and no swelling GI: No nausea, vomiting, or diarrhea Endocrine: no fatigue, no cold intolerance, no heat intolerance, no polyuria, no polyphagia, and no polydipsia Neurologic: No headache, weakness, dizziness, memory loss, syncope. PAST MEDICAL HISTORY Diagnosis Date Diabetes mellitus type 2, controlled (HCC) Essential hypertension, benign Pure hypercholesterolemia BORDERLINE PAST SURGICAL HISTORY Procedure Laterality Date COLONOSCOPY FLX DX W/COLLJ SPEC WHEN PFRMD 10/06/2012 Colonoscopy ALLERGIES Hctz [Lisinopril-Hydrochlorothiazide], Hydralazine, Magnesium, Prednisone, and Prinizide [Other] MEDICATIONS glipiZIDE (GLUCOTROL XL) 10mg 24 hr tablet Take 2 tablets by mouth once daily. carvedilol (COREG) 25 mg tablet Take 1 tablet by mouth twice daily. valsartan (DIOVAN) 80 mg tablet Take 1 tablet by mouth once daily. dulaglutide (TRULICITY) 4.5 mg/0.5 mL pen injector Inject 4.5 mg subcutaneously one time a week. lovastatin 40 mg tablet Take 1 tablet by mouth daily with dinner. metFORMIN ER (GLUCOPHAGE XR) 500 mg 24 hr tablet Take 1 tablet by mouth daily with breakfast. amLODIPine (NORVASC) 10 mg tablet Take 1 tablet by mouth once daily. montelukast (SINGULAIR) 10 mg tablet Take 1 tablet by mouth daily at bedtime. levothyroxine (LEVOXYL) 50 mcg tablet Take 1 tablet by mouth once daily. Take on empty stomach. For Thyroid albuterol HFA (PROVENTIL HFA, VENTOLIN HFA) 90 mcg/actuation inhaler Inhale 2 Puffs as instructed every 6 hours as needed. Aug Betamethasone Dipropionate (DIPROLENE) 0.05 % ointment Lancing Device with Lancets (ONE TOUCH Streyner) Use to check blood sugars as directed. blood sugar diagnostic (GrupHediyeUCH VERIO TEST STRIPS) test strip Use as instructed to check blood sugar twice daily E.11.65 latanoprost (XALATAN) 0.005 % ophthalmic solution timolol maleate (TIMOPTIC) 0.5 % ophthalmic solution lancets (ONE TOUCH Streyner) 33 gauge USE TO CHECK GLUCOSE TWICE DAILY. E11.65 ferrous sulfate EC 324 mg (65 mg iron) TbEC Take 324 mg by mouth every other day. melatonin 5 mg tablet Take 5 mg by mouth daily at bedtime. aspirin, enteric coated (ADULT LOW DOSE ASPIRIN) 81 mg EC tablet Take 1 tablet by mouth once daily. FAMILY HISTORY Problem Relation Age of Onset Arthritis Mother Emphysema Father FROM THIS Breast Cancer Paternal Aunt Diabetes Brother Social History Tobacco Use Smoking status: Never Smokeless tobacco: Never Vaping Use Vaping Use: Never used Substance Use Topics Alcohol use: No Drug use: No PHYSICAL EXAM BP 130/72 Pulse 80 Resp 16 (more content not included)... [facility] 03-11-2023 History of Present illness Narrative CC: Patient presents with: Recheck: 3 month follow up HPI Swathi Otero is a 78 year old female who presents today for routine follow up. DIABETES MELLITUS: Ms. Otero denies excessive thirst or increased frequency of urination, chest pain or dyspnea , numbness or pain in extremities, new or unusual visual symptoms, low sugar/hypoglycemic reactions, weight loss/gain, lightheadedness/dizziness, and bowel changes/loose stools. Follows a diabetic diet generally not very much. She is compliant with medication(s) and is tolerating med(s) without any side effects. She reports checking her glucose on a once a day schedule with sugars in the fasting 120s-140s range. Patient's last HgA1C was Hemoglobin A1C (%) Date Value 03/10/2023 7.4 12/02/2022 7.2 08/11/2021 7.4 05/08/2021 7.4 ) Last Ophthalmology exam was within the past 6 months at [facility]. Intermittent tingling to toes but very rare and does not even occur weekly and only lasts a few seconds. HTN: Ms. Otero indicates that she is feeling well and denies any symptoms referable to elevated blood pressure. Specifically denies headache, chest pain, palpitations, dyspnea, and peripheral edema. Patient denies any side effects of her medication(s) and is compliant with their regimen. She does check BP's away from this office with average BP's in the 120s/70s range. Swathi denies regular aerobic exercise. She watches her diet for sodium, low fat and low cholesterol generally not very much. Last 3 Encounter BP Readings: Date: BP: 03/11/2023 138/72 01/20/2023 142/76 12/10/2022 148/78[Home cuff[ CKD: has been taking large amounts of ibuprofen for chronic knee pain she has been seeing orthopedic for. Hypothyroidism: Takes medications as ordered. Denies any abnormal changes in weight, changes in energy level, or intolerance to heat/cold. REVIEW OF SYSTEMS General: no fevers, no chills, no night sweats, no recurrent infections, no change in appetite, no change in energy, and no significant changes in weight Respiratory: no cough, no wheezing, no shortness of breath, no hemoptysis Cardiovascular: no chest pain, no chest pressure, no palpitations, and no swelling GI: No nausea, vomiting, or diarrhea Endocrine: no fatigue, no cold intolerance, no heat intolerance, no polyuria, no polyphagia, and no polydipsia Neurologic: No headache, weakness, dizziness, memory loss, syncope. PAST MEDICAL HISTORY Diagnosis Date Diabetes mellitus type 2, controlled (HCC) Essential hypertension, benign Pure hypercholesterolemia BORDERLINE PAST SURGICAL HISTORY Procedure Laterality Date COLONOSCOPY FLX DX W/COLLJ SPEC WHEN PFRMD 10/06/2012 Colonoscopy ALLERGIES Hctz [Lisinopril-Hydrochlorothiazide], Hydralazine, Magnesium, Prednisone, and Prinizide [Other] MEDICATIONS glipiZIDE (GLUCOTROL XL) 10mg 24 hr tablet Take 2 tablets by mouth once daily. carvedilol (COREG) 25 mg tablet Take 1 tablet by mouth twice daily. valsartan (DIOVAN) 80 mg tablet Take 1 tablet by mouth once daily. dulaglutide (TRULICITY) 4.5 mg/0.5 mL pen injector Inject 4.5 mg subcutaneously one time a week. lovastatin 40 mg tablet Take 1 tablet by mouth daily with dinner. metFORMIN ER (GLUCOPHAGE XR) 500 mg 24 hr tablet Take 1 tablet by mouth daily with breakfast. amLODIPine (NORVASC) 10 mg tablet Take 1 tablet by mouth once daily. montelukast (SINGULAIR) 10 mg tablet Take 1 tablet by mouth daily at bedtime. levothyroxine (LEVOXYL) 50 mcg tablet Take 1 tablet by mouth once daily. Take on empty stomach. For Thyroid albuterol HFA (PROVENTIL HFA, VENTOLIN HFA) 90 mcg/actuation inhaler Inhale 2 Puffs as instructed every 6 hours as needed. Aug Betamethasone Dipropionate (DIPROLENE) 0.05 % ointment Lancing Device with Lancets (Techstars) Use to check blood sugars as directed. blood sugar diagnostic (GrupHediyeUCH VERIO TEST STRIPS) test strip Use as instructed to check blood sugar twice daily E.11.65 latanoprost (XALATAN) 0.005 % ophthalmic solution timolol maleate (TIMOPTIC) 0.5 % ophthalmic solution lancets (SafedoX TOUCH Streyner) 33 gauge USE TO CHECK GLUCOSE TWICE DAILY. E11.65 ferrous sulfate EC 324 mg (65 mg iron) TbEC Take 324 mg by mouth every other day. melatonin 5 mg tablet Take 5 mg by mouth daily at bedtime. aspirin, enteric coated (ADULT LOW DOSE ASPIRIN) 81 mg EC tablet Take 1 tablet by mouth once daily. FAMILY HISTORY Problem Relation Age of Onset Arthritis Mother Emphysema Father FROM THIS Breast Cancer Paternal Aunt Diabetes Brother Social History Tobacco Use Smoking status: Never Smokeless tobacco: Never Vaping Use Vaping Use: Never used Substance Use Topics Alcohol use: No Drug use: No PHYSICAL EXAM BP 130/72 Pulse 80 Resp 16 Wt 89.4 kg (197 lb) BMI 39.79 kg/m General Appearance: well appearing, in no acute distress, alert Skin: Skin color, texture, turgor normal for age; Eyes: conjunctiva pink and moist, no icterus, sclera white, non-injected Neck: Thyroid normal size and symmetric without palpable nodules, Neck supple, No adenopathy Lymph nodes: No cervical lymphadenopathy and No supraclavicular lymphadenopathy Lungs: Lungs clear to auscultation. No wheezing, rhonchi, rales. Heart: RRR without murmur, gallop, or rubs. No ectopy Extremities: No deformities, edema, skin discoloration, clubbing or cyanosis. Good capillary refill. Feet:Shoes and socks removed, normal distal pulses, sensitive to 10 gm monofilament, and vibratory perception normal Health maintenance reviewed with patient: DIABETIC FOOT EXAM due on 01/22/2022 DILATED RETINAL EXAM due on 08/12/2022 BP CONTROLLED (<130/80) due on 08/12/2022 INFLUENZA(1) due on 05/07/2023 HBA1C due on 09/10/2023 LDL CHOLESTEROL due on 12/03/2023 ANNUAL PCP TEAM CHRONIC DISEASE VISIT due on 12/11/2023 DTAP,TDAP,TD(3 - Td or Tdap) due on 05/15/2031 BONE DENSITY Completed ADVANCE DIRECTIVE DISCUSSION Completed DEPRESSION ASSESSMENT Completed HEPATITIS C SCREENING Completed SHINGRIX VACCINE Completed COVID-19 VACCINE Completed PNEUMOCOCCAL: 65+ Completed URINE ALBUMIN:CREATININE RATIO Discontinued DATA REVIEWED: Most recent labs ASSESSMENT/PLAN: 1. Essential hypertension - ICD9: 401.9, ICD10: I10 (primary diagnosis) - Controlled - Continue current medications - Recommend home blood pressure monitoring, to bring results to next visit - Encouraged sodium restriction, DASH or Mediterranean diet - Recommend regular aerobic exercise 2. Hypothyroidism, unspecified type - ICD9: 244.9, ICD10: E03.9 - Instructed patient on importance of taking on an empty stomach either first thing in the morning or at bedtime. - asymptomatic 3. Type 2 diabetes mellitus with microalbuminuria, without long-term current use of insulin (HCC) - ICD9: 250.40, 791.0, ICD10: E11.29, R80.9 - Uncontrolled - Continue current medications but adding jardiance - Blood glucose monitoring on a once daily schedule - Counseled on healthy diet and regular exercise - Discussed need for and benefit of weight loss. BMI 39.79 kg/(m^2) - follow up in 4 weeks 4. Stage 3a chronic kidney disease (HCC) - ICD9: 585.3, ICD10: N18.31 - eGFR: Stable - Counseled on avoiding NSAIDs, adequate hydration - patient to replace ibuprofen with tylenol. Prescription instructions reviewed with patient as applicable. Potential red flag symptoms discussed with the patient. Reviewed appropriate action plan to take if red flag symptoms occur. Patient agreeable to treatment plan. Monserrat Hathaway APRN.CNP documented in this encounter [facility] 01-20-2023 Note HNO ID: [id number] Author: RT Maryan(R) Service: Radiology Author Type: Technologist Type: Progress Notes Filed: 01/20/2023 10:38 AM Note Text: Radiology Service Progress Note PATIENT NAME: Swathi Otero DATE OF SERVICE: January 20, 2023 TIME: 10:27 AM PATIENT IDENTITY VERIFICATION COMPLETED USING TWO (2) IDENTIFIERS: Name and Date of confirmed by patient verbally. FALL SCREENING: Has the patient had 2 falls in the last year or 1 fall with injury or currently using an Ambulatory Assistive Device (Walker, Cane, Wheelchair, Crutches, etc.)? No PATIENT GENDER DATA: Female. status: : No status: NO. PATIENT RELEVANT IMPLANT DATA REVIEWED: Yes RADIOLOGY DEPARTMENT: General X-ray: Exam(s) Completed: Upper Extremity X-Ray(s): Humerus, left PERIPHERAL IV DATA: Not applicable SIGNED BY: RT Maryan(R) January 20, 2023 10:27 AM [facility] 01-20-2023 Note HNO ID: [id number] Author: Carlos Hernandez APRN.CNP Service: ? Author Type: Nurse Practitioner Type: Progress Notes Filed: 01/20/2023 10:52 AM Note Text: Subjective HPI Nontoxic-appearing female presents urgent care chief complaint left upper arm/shoulder pain. Duration of symptoms 3 weeks. Associated symptoms left arm pain. Patient states pain has been present for about 3-3 and half weeks. Has stayed persistent. Has not worsened has not improved. States pain comes and goes. Is worse at night if she tries to sleep on her shoulder. Is exacerbated by certain movements or lifting weight. Is relieved by rest. Has taken Motrin this has helped. No numbness no tingling. No decrease sensation. No fractures or surgeries in the past. Denies any fever body aches chills productive cough chest pain shortness of breath pleuritic pain hemoptysis nausea vomiting abdominal pain change in bowel or bladder habits. Past medical history prescription medication use and allergies reviewed. .Patient presents with: Pain: Left upper arm pain x 3 weeks PAST MEDICAL HISTORY Diagnosis Date Diabetes mellitus type 2, controlled (HCC) Essential hypertension, benign Pure hypercholesterolemia BORDERLINE PAST SURGICAL HISTORY Procedure Laterality Date COLONOSCOPY FLX DX W/COLLJ SPEC WHEN PFRMD 10/06/2012 Colonoscopy ALLERGIES Hctz [Lisinopril-Hydrochlorothiazide], Hydralazine, Magnesium, Prednisone, and Prinizide [Other] MEDICATIONS glipiZIDE (GLUCOTROL XL) 10mg 24 hr tablet Take 2 tablets by mouth once daily. montelukast (SINGULAIR) 10 mg tablet Take 1 tablet by mouth daily at bedtime. carvedilol (COREG) 25 mg tablet Take 1 tablet by mouth twice daily. valsartan (DIOVAN) 80 mg tablet Take 1 tablet by mouth once daily. levothyroxine (LEVOXYL) 50 mcg tablet Take 1 tablet by mouth once daily. Take on empty stomach. For Thyroid dulaglutide (TRULICITY) 4.5 mg/0.5 mL pen injector Inject 4.5 mg subcutaneously one time a week. lovastatin 40 mg tablet Take 1 tablet by mouth daily with dinner. metFORMIN ER (GLUCOPHAGE XR) 500 mg 24 hr tablet Take 1 tablet by mouth daily with breakfast. albuterol HFA (PROVENTIL HFA, VENTOLIN HFA) 90 mcg/actuation inhaler Inhale 2 Puffs as instructed every 6 hours as needed. amLODIPine (NORVASC) 10 mg tablet Take 1 tablet by mouth once daily. Aug Betamethasone Dipropionate (DIPROLENE) 0.05 % ointment Lancing Device with Lancets (Techstars) Use to check blood sugars as directed. blood sugar diagnostic (GrupHediyeUCH VERIO TEST STRIPS) test strip Use as instructed to check blood sugar twice daily E.11.65 latanoprost (XALATAN) 0.005 % ophthalmic solution timolol maleate (TIMOPTIC) 0.5 % ophthalmic solution lancets (Techstars) 33 gauge USE TO CHECK GLUCOSE TWICE DAILY. E11.65 ferrous sulfate EC 324 mg (65 mg iron) TbEC Take 324 mg by mouth every other day. melatonin 5 mg tablet Take 5 mg by mouth daily at bedtime. aspirin, enteric coated (ADULT LOW DOSE ASPIRIN) 81 mg EC tablet Take 1 tablet by mouth once daily. FAMILY HISTORY Problem Relation Age of Onset Arthritis Mother Emphysema Father FROM THIS Breast Cancer Paternal Aunt Diabetes Brother Social History Tobacco Use Smoking status: Never Smokeless tobacco: Never Vaping Use Vaping Use: Never used Substance Use Topics Alcohol use: No Drug use: No BP 142/76 Pulse 97 Temp 36.6 ?C (97.9 ?F) Resp 21 Wt 92.2 kg (203 lb 3.2 oz) SpO2 98% BMI 41.04 kg/m? Review of Systems Constitutional: Negative for chills, fever and malaise/fatigue. HENT: Negative for congestion, ear discharge, ear pain, sinus pain and sore throat. Eyes: Negative for blurred vision, pain, discharge and redness. Respiratory: Negative for cough, hemoptysis, sputum production, shortness of breath, wheezing and stridor. Cardiovascular: Negative for chest pain. Gastrointestinal: Negative for abdominal pain, diarrhea, nausea and vomiting. Musculoskeletal: Positive for joint pain. Negative for myalgias. Skin: Negative for itching and rash. Neurological: Negative for dizziness and headaches. Objective Physical Exam Constitutional: General: She is not in acute distress. Appearance: She is not diaphoretic. HENT: Head: Normocephalic. Eyes: Conjunctiva/sclera: Conjunctivae normal. Pupils: Pupils are equal, round, and reactive to light. Cardiovascular: Rate and Rhythm: Normal rate and regular rhythm. Heart sounds: Normal heart sounds. Pulmonary: Effort: Pulmonary effort is normal. No tachypnea, accessory muscle usage or respiratory distress. Breath sounds: Normal breath sounds. No stridor. No wheezing, rhonchi or rales. Musculoskeletal: Right shoulder: Normal. Left shoulder: Tenderness present. No swelling, deformity, effusion, laceration or bony tenderness. Normal range of motion. Decreased strength. Right upper arm: Normal. Left upper arm: Tenderness pr (more content not included)... [facility] 01-20-2023 Miscellaneous Notes Pt was notified of the results. Pt verbalized understanding. Joselin Boswell MA No new findings noted on x-ray. Continue supportive therapies as discussed. Follow-up with PCP 01/22/2023 at 9 AM. Carlos Hernandez APRN.CNP documented in this encounter [facility] 01-12-2023 Miscellaneous Notes Patient has been identified by name and date of : Yes Last office visit in this department: 12/10/2022 RX INSTRUCTIONS: Patient aware RX will be sent to pharmacy. No need to notify patient. Patient phones requesting refills as follows: Requested Prescriptions Pending Prescriptions Disp Refills glipiZIDE XL (GLUCOTROL XL) 10 mg 24 hr tablet 180 tablet 3 Sig: Take 2 tablets by mouth once daily. montelukast (SINGULAIR) 10 mg tablet 90 tablet 1 Sig: Take 1 tablet by mouth daily at bedtime. Please review and advise. Sandy Lange documented in this encounter [facility] 12-24-2022 Miscellaneous Notes Left detailed message on identifiable voicemail. ----- Message from Monserrat Hathaway APRN.CNP sent at 12/24/2022 12:42 PM EDT ----- Please let patient know her cologuard is negative. This should be repeated every 3 years. Thank you Monserrat Hathaway APRN.CNP documented in this encounter [facility] 12-10-2022 Note HNO ID: [id number] Author: Monserrat Hathaway APRN.CNP Service: ? Author Type: Nurse Practitioner Type: Progress Notes Filed: 12/15/2022 8:33 AM Note Text: CC: Patient presents with: Recheck: HTN follow up, review labs HPI Swathi Otero is a 77 year old female who presents today for follow up. HTN: Ms. Otero indicates that she is feeling well and denies any symptoms referable to elevated blood pressure. Specifically denies headache, chest pain, palpitations, dyspnea, and peripheral edema. Patient denies any side effects of her medication(s) and is compliant with their regimen. She does check BP's away from this office with average BP's in the 120s/70s range. Swathi denies regular aerobic exercise. She watches her diet for sodium, low fat and low cholesterol some of the time. Last 3 Encounter BP Readings: Date: BP: 12/10/2022 148/78[Home cuff[ 10/09/2022 142/78 01/06/2022 118/68 DIABETES MELLITUS: Ms. Otero denies excessive thirst or increased frequency of urination, chest pain or dyspnea , numbness, tingling or pain in extremities, new or unusual visual symptoms, low sugar/hypoglycemic reactions, weight loss/gain, lightheadedness/dizziness, and bowel changes/loose stools. Follows a diabetic diet some of the time. She is compliant with medication(s) and is tolerating med(s) without any side effects but has been out of her trulicity for a few weeks. She reports checking her glucose on a once a day schedule with sugars in the fasting 120-140 range. Patient's last HgA1C was Hemoglobin A1C (%) Date Value 12/02/2022 7.2 01/02/2022 7.3 08/11/2021 7.4 05/08/2021 7.4 ) Last Ophthalmology exam was within the past 12 months but has an appointment in January at [facility]. REVIEW OF SYSTEMS General: no fevers, no chills, no night sweats, no recurrent infections, no change in appetite, no change in energy, and no significant changes in weight Respiratory: no cough, no wheezing, no shortness of breath, no hemoptysis Cardiovascular: no chest pain, no chest pressure, no palpitations, and no swelling Endocrine: no fatigue, no cold intolerance, no heat intolerance, no polyuria, no polyphagia, and no polydipsia Neurologic: No headache, weakness, numbness, tingling, dizziness, syncope. PAST MEDICAL HISTORY Diagnosis Date Diabetes mellitus type 2, controlled (HCC) Essential hypertension, benign Pure hypercholesterolemia BORDERLINE PAST SURGICAL HISTORY Procedure Laterality Date COLONOSCOPY FLX DX W/COLLJ SPEC WHEN PFRMD 10/06/2012 Colonoscopy ALLERGIES Hctz [Lisinopril-Hydrochlorothiazide], Hydralazine, Magnesium, Prednisone, and Prinizide [Other] MEDICATIONS lovastatin 40 mg tablet Take 1 tablet by mouth daily with dinner. dulaglutide (TRULICITY) 4.5 mg/0.5 mL pen injector Inject 4.5 mg subcutaneously one time a week. metFORMIN ER (GLUCOPHAGE XR) 500 mg 24 hr tablet Take 1 tablet by mouth daily with breakfast. albuterol HFA (PROVENTIL HFA, VENTOLIN HFA) 90 mcg/actuation inhaler Inhale 2 Puffs as instructed every 6 hours as needed. montelukast (SINGULAIR) 10 mg tablet Take 1 tablet by mouth daily at bedtime. carvedilol (COREG) 25 mg tablet Take 1 tablet by mouth twice daily. amLODIPine (NORVASC) 10 mg tablet Take 1 tablet by mouth once daily. valsartan (DIOVAN) 80 mg tablet Take 1 tablet by mouth once daily. levothyroxine (LEVOXYL) 50 mcg tablet Take 1 tablet by mouth once daily. Take on empty stomach. For Thyroid glipiZIDE (GLUCOTROL XL) 10mg 24 hr tablet Take 2 tablets by mouth once daily. Aug Betamethasone Dipropionate (DIPROLENE) 0.05 % ointment Lancing Device with Lancets (Techstars) Use to check blood sugars as directed. blood sugar diagnostic (GrupHediyeUCH VERIO TEST STRIPS) test strip Use as instructed to check blood sugar twice daily E.11.65 latanoprost (XALATAN) 0.005 % ophthalmic solution timolol maleate (TIMOPTIC) 0.5 % ophthalmic solution lancets (SafedoX TOUCH Streyner) 33 gauge USE TO CHECK GLUCOSE TWICE DAILY. E11.65 ferrous sulfate EC 324 mg (65 mg iron) TbEC Take 324 mg by mouth every other day. melatonin 5 mg tablet Take 5 mg by mouth daily at bedtime. aspirin, enteric coated (ADULT LOW DOSE ASPIRIN) 81 mg EC tablet Take 1 tablet by mouth once daily. FAMILY HISTORY Problem Relation Age of Onset Arthritis Mother Emphysema Father FROM THIS Breast Cancer Paternal Aunt Diabetes Brother Social History Tobacco Use Smoking status: Never Smokeless tobacco: Never Vaping Use Vaping Use: Never used Substance Use Topics Alcohol use: No Drug use: No PHYSICAL EXAM BP 148/78 Pulse 68 Resp 16 Wt 90.3 kg (199 lb) BMI 40.19 kg/m? General Appearance: well appearing, in no acute distress, alert Skin: Skin color, texture, turgor normal for age; Eyes: conjunctiva pink and moist, no icterus, sclera white, non-injected Neck: Thyroid normal size and symmetric without palpable nodules, No adenopat (more content not included)... [facility] 12-10-2022 History of Present illness Narrative CC: Patient presents with: Recheck: HTN follow up, review labs HPI Swathi Otero is a 77 year old female who presents today for follow up. HTN: Ms. Otero indicates that she is feeling well and denies any symptoms referable to elevated blood pressure. Specifically denies headache, chest pain, palpitations, dyspnea, and peripheral edema. Patient denies any side effects of her medication(s) and is compliant with their regimen. She does check BP's away from this office with average BP's in the 120s/70s range. Swathi denies regular aerobic exercise. She watches her diet for sodium, low fat and low cholesterol some of the time. Last 3 Encounter BP Readings: Date: BP: 12/10/2022 148/78[Home cuff[ 10/09/2022 142/78 01/06/2022 118/68 DIABETES MELLITUS: Ms. Otero denies excessive thirst or increased frequency of urination, chest pain or dyspnea , numbness, tingling or pain in extremities, new or unusual visual symptoms, low sugar/hypoglycemic reactions, weight loss/gain, lightheadedness/dizziness, and bowel changes/loose stools. Follows a diabetic diet some of the time. She is compliant with medication(s) and is tolerating med(s) without any side effects but has been out of her trulicity for a few weeks. She reports checking her glucose on a once a day schedule with sugars in the fasting 120-140 range. Patient's last HgA1C was Hemoglobin A1C (%) Date Value 12/02/2022 7.2 01/02/2022 7.3 08/11/2021 7.4 05/08/2021 7.4 ) Last Ophthalmology exam was within the past 12 months but has an appointment in January at [facility]. REVIEW OF SYSTEMS General: no fevers, no chills, no night sweats, no recurrent infections, no change in appetite, no change in energy, and no significant changes in weight Respiratory: no cough, no wheezing, no shortness of breath, no hemoptysis Cardiovascular: no chest pain, no chest pressure, no palpitations, and no swelling Endocrine: no fatigue, no cold intolerance, no heat intolerance, no polyuria, no polyphagia, and no polydipsia Neurologic: No headache, weakness, numbness, tingling, dizziness, syncope. PAST MEDICAL HISTORY Diagnosis Date Diabetes mellitus type 2, controlled (HCC) Essential hypertension, benign Pure hypercholesterolemia BORDERLINE PAST SURGICAL HISTORY Procedure Laterality Date COLONOSCOPY FLX DX W/COLLJ SPEC WHEN PFRMD 10/06/2012 Colonoscopy ALLERGIES Hctz [Lisinopril-Hydrochlorothiazide], Hydralazine, Magnesium, Prednisone, and Prinizide [Other] MEDICATIONS lovastatin 40 mg tablet Take 1 tablet by mouth daily with dinner. dulaglutide (TRULICITY) 4.5 mg/0.5 mL pen injector Inject 4.5 mg subcutaneously one time a week. metFORMIN ER (GLUCOPHAGE XR) 500 mg 24 hr tablet Take 1 tablet by mouth daily with breakfast. albuterol HFA (PROVENTIL HFA, VENTOLIN HFA) 90 mcg/actuation inhaler Inhale 2 Puffs as instructed every 6 hours as needed. montelukast (SINGULAIR) 10 mg tablet Take 1 tablet by mouth daily at bedtime. carvedilol (COREG) 25 mg tablet Take 1 tablet by mouth twice daily. amLODIPine (NORVASC) 10 mg tablet Take 1 tablet by mouth once daily. valsartan (DIOVAN) 80 mg tablet Take 1 tablet by mouth once daily. levothyroxine (LEVOXYL) 50 mcg tablet Take 1 tablet by mouth once daily. Take on empty stomach. For Thyroid glipiZIDE (GLUCOTROL XL) 10mg 24 hr tablet Take 2 tablets by mouth once daily. Aug Betamethasone Dipropionate (DIPROLENE) 0.05 % ointment Lancing Device with Lancets (Techstars) Use to check blood sugars as directed. blood sugar diagnostic (SafedoXTOUCH VERIO TEST STRIPS) test strip Use as instructed to check blood sugar twice daily E.11.65 latanoprost (XALATAN) 0.005 % ophthalmic solution timolol maleate (TIMOPTIC) 0.5 % ophthalmic solution lancets (ONE TOUCH Streyner) 33 gauge USE TO CHECK GLUCOSE TWICE DAILY. E11.65 ferrous sulfate EC 324 mg (65 mg iron) TbEC Take 324 mg by mouth every other day. melatonin 5 mg tablet Take 5 mg by mouth daily at bedtime. aspirin, enteric coated (ADULT LOW DOSE ASPIRIN) 81 mg EC tablet Take 1 tablet by mouth once daily. FAMILY HISTORY Problem Relation Age of Onset Arthritis Mother Emphysema Father FROM THIS Breast Cancer Paternal Aunt Diabetes Brother Social History Tobacco Use Smoking status: Never Smokeless tobacco: Never Vaping Use Vaping Use: Never used Substance Use Topics Alcohol use: No Drug use: No PHYSICAL EXAM BP 148/78 Pulse 68 Resp 16 Wt 90.3 kg (199 lb) BMI 40.19 kg/m General Appearance: well appearing, in no acute distress, alert Skin: Skin color, texture, turgor normal for age; Eyes: conjunctiva pink and moist, no icterus, sclera white, non-injected Neck: Thyroid normal size and symmetric without palpable nodules, No adenopathy Lymph nodes: No cervical lymphadenopathy and No supraclavicular lymphadenopathy Lungs: Lungs clear to auscultation. No wheezing, rhonchi, rales. Heart: RRR without murmur, gallop, or rubs. No ectopy Health maintenance reviewed with patient: DIABETIC FOOT EXAM due on 01/22/2022 DILATED RETINAL EXAM due on 08/12/2022 BP CONTROLLED (<130/80) due on 08/12/2022 ADVANCE DIRECTIVE DISCUSSION due on 09/06/2022 DEPRESSION ASSESSMENT Never done COLORECTAL CANCER SCREENING due on 10/06/2022 HBA1C due on 06/04/2023 ANNUAL PCP TEAM CHRONIC DISEASE VISIT due on 10/09/2023 LDL CHOLESTEROL due on 12/03/2023 DTAP,TDAP,TD(3 - Td or Tdap) due on 05/15/2031 BONE DENSITY Completed INFLUENZA Completed HEPATITIS C SCREENING Completed SHINGRIX VACCINE Completed COVID-19 VACCINE Completed PNEUMOCOCCAL: 65+ Completed URINE ALBUMIN:CREATININE RATIO Discontinued DATA REVIEWED: Most recent labs ASSESSMENT/PLAN: 1. Type 2 diabetes mellitus with microalbuminuria, without long-term current use of insulin (HCC) - ICD9: 250.40, 791.0, ICD10: E11.29, R80.9 (primary diagnosis) - Worsening control, patient feels this will improve with restarting trulicity (only out of medication for a few weeks) and healthy choices. - Continue current medications - Blood glucose monitoring on a once daily schedule - Counseled on healthy diet and regular exercise - Discussed need for and benefit of weight loss. BMI 40.19 kg/(m^2) - HGB A1C - BASIC METABOLIC PNL - follow up in 3 months. If A1c still above 7 will need to evaluate medication changes. 2. Essential hypertension - ICD9: 401.9, ICD10: I10 - good control at home - Continue current medication(s) - Encouraged dietary sodium restriction/DASH diet - Recommended regular aerobic exercise. - Recommend home blood pressure monitoring, to bring results in on next visit - Goal of BP <130/80 - BASIC METABOLIC PNL - follow up in 3 months 3. Colon cancer screening - ICD9: V76.51, ICD10: Z12.11 No family history of colon cancer, personal history of polyps, or bowel changes/concerns. - COLOGUARD Prescription instructions reviewed with patient as applicable. Potential red flag symptoms discussed with the patient. Reviewed appropriate action plan to take if red flag symptoms occur. Patient agreeable to treatment plan. Monserrat Hathaway APRN.CNP documented in this encounter [facility] 11-27-2022 Miscellaneous Notes Patient has been identified by name and date of : No Patient phones for refill(s): Requested Prescriptions Pending Prescriptions Disp Refills TRULICITY 4.5 mg/0.5 mL pen injector [Pharmacy Med Name: TRULICITY SD PEN 0.5ML 4'S 4.5MG] 6 mL 3 Sig: INJECT 4.5 MG UNDER THE SKIN ONE TIME A WEEK Date of last office visit in primary care: 10/09/22 Last 2 Encounter Wt Readings: Date: Wt: 10/09/2022 90.7 kg (200 lb) 01/06/2022 93.5 kg (206 lb 3.2 oz) Previous labs/tests for medication: Diabetes: Hemoglobin A1C (%) Date Value 01/02/2022 7.3 08/11/2021 7.4 05/08/2021 7.4 Please advise. Thank you. Jessy Scherer LPN Patient has been identified by name and date of : Yes Requested Prescriptions Pending Prescriptions Disp Refills TRULICITY 4.5 mg/0.5 mL pen injector [Pharmacy Med Name: TRULICITY SD PEN 0.5ML 4'S 4.5MG] 6 mL 3 Sig: INJECT 4.5 MG UNDER THE SKIN ONE TIME A WEEK RX INSTRUCTIONS: Patient aware RX escripted to mail away pharmacy. No need to notify patient. Monica Deluca Pss documented in this encounter [facility] 11-16-2022 Miscellaneous Notes Pharmacy verified in [facility] Patient has been identified by name and date of : Yes Patient aware RX will be sent to pharmacy. No need to notify patient. Patient phones for refill(s): Requested Prescriptions Pending Prescriptions Disp Refills dulaglutide (TRULICITY) 4.5 mg/0.5 mL pen injector 6 mL 3 Sig: Inject 4.5 mg subcutaneously one time a week. metFORMIN ER (GLUCOPHAGE XR) 500 mg 24 hr tablet 90 tablet 3 Sig: Take 1 tablet by mouth daily with breakfast. Date of last office visit : 10/09/2022 Date of next office visit : 12/07/2022 Last 2 Encounter Wt Readings: Date: Wt: 10/09/2022 90.7 kg (200 lb) 01/06/2022 93.5 kg (206 lb 3.2 oz) Not applicable Please advise. Sandy Abdalla Pss documented in this encounter [facility] 10-09-2022 Note HNO ID: [id number] Author: Monserrat Hathaway APRN.KST OPERATOR Service: ? Author Type: Nurse Practitioner Type: Progress Notes Filed: 10/09/2022 1:41 PM Note Text: CC: Patient presents with: Follow Up HPI Swathi Otero is a 77 year old female who presents today for routine follow up. HTN and HLD: Ms. Otero indicates that she is feeling well and denies any symptoms referable to elevated blood pressure. Specifically denies headache, chest pain, palpitations, dyspnea, and peripheral edema. Patient denies any side effects of her medication(s) and is compliant with their regimen. She does check BP's away from this office with average BP's in the 110s/70s range. Swathi denies regular aerobic exercise. She watches her diet for sodium, low fat and low cholesterol some of the time. Last 3 Encounter BP Readings: Date: BP: 01/06/2022 118/68 10/23/2021 136/69 08/12/2021 140/70 Has concerns for need of always clearing her throat and coughing for years especially at night. Was told by PCP it was related to reflux and tried famotidine but stopped it because it was not helping. Denies seasonal allergies or nasal drainage/congestion. Cough is nonproductive and states she sometimes feels she is wheezing at night. Denies any heart burn, shortness of breath, difficulty swallowing, chest pain, fever, chills, or edema. DIABETES MELLITUS: Ms. Otero denies excessive thirst or increased frequency of urination, chest pain or dyspnea , numbness, tingling or pain in extremities, new or unusual visual symptoms, low sugar/hypoglycemic reactions, weight loss/gain, lightheadedness/dizziness, and bowel changes/loose stools. Follows a diabetic diet some of the time. She is compliant with medication(s) and is tolerating med(s) without any side effects. She reports checking her glucose on a twice a day schedule ranging in 120-140. Patient's last HgA1C was Hemoglobin A1C (%) Date Value 01/02/2022 7.3 08/11/2021 7.4 05/08/2021 7.4 ) Last Ophthalmology exam was within the past 3 months at [facility]. Hypothyroidism: Takes medication as ordered. Denies any abnormal weight changes, fatigue, or change in skin. REVIEW OF SYSTEMS General: no fevers, no chills, no night sweats, no recurrent infections, no change in appetite, no change in energy, and no significant changes in weight Respiratory: no cough, no wheezing, no shortness of breath, no hemoptysis Cardiovascular: no chest pain, no chest pressure, no palpitations, and no swelling GI: No nausea, vomiting, or diarrhea Endocrine: no fatigue, no weight gain, no weight loss, no cold intolerance, no heat intolerance, no polyuria, no polyphagia, and no polydipsia Neurologic: No headache, weakness, numbness, tingling, dizziness, syncope. PAST MEDICAL HISTORY Diagnosis Date Diabetes mellitus type 2, controlled (HCC) Essential hypertension, benign Pure hypercholesterolemia BORDERLINE PAST SURGICAL HISTORY Procedure Laterality Date COLONOSCOPY FLX DX W/COLLJ SPEC WHEN PFRMD 10/06/2012 Colonoscopy ALLERGIES Hctz [Lisinopril-Hydrochlorothiazide], Hydralazine, Magnesium, Prednisone, and Prinizide [Other] MEDICATIONS carvedilol (COREG) 25 mg tablet Take 1 tablet by mouth twice daily. lovastatin 40 mg tablet Take 1 tablet by mouth daily with dinner. amLODIPine (NORVASC) 10 mg tablet Take 1 tablet by mouth once daily. valsartan (DIOVAN) 80 mg tablet Take 1 tablet by mouth once daily. metFORMIN ER (GLUCOPHAGE XR) 500 mg 24 hr tablet Take 1 tablet by mouth daily with breakfast. levothyroxine (LEVOXYL) 50 mcg tablet Take 1 tablet by mouth once daily. Take on empty stomach. For Thyroid dulaglutide (TRULICITY) 4.5 mg/0.5 mL pen injector Inject 4.5 mg subcutaneously one time a week. glipiZIDE (GLUCOTROL XL) 10mg 24 hr tablet Take 2 tablets by mouth once daily. ferrous sulfate EC 324 mg (65 mg iron) TbEC Take 324 mg by mouth every other day. aspirin, enteric coated (ADULT LOW DOSE ASPIRIN) 81 mg EC tablet Take 1 tablet by mouth once daily. albuterol HFA (PROVENTIL HFA, VENTOLIN HFA) 90 mcg/actuation inhaler Inhale 2 Puffs as instructed every 6 hours as needed. montelukast (SINGULAIR) 10 mg tablet Take 1 tablet by mouth daily at bedtime. Aug Betamethasone Dipropionate (DIPROLENE) 0.05 % ointment Lancing Device with Lancets (Techstars) Use to check blood sugars as directed. blood sugar diagnostic (ONETOUCH VERIO TEST STRIPS) test strip Use as instructed to check blood sugar twice daily E.11.65 latanoprost (XALATAN) 0.005 % ophthalmic solution timolol maleate (TIMOPTIC) 0.5 % ophthalmic solution lancets (ONE TOUCH DELOja.la) 33 gauge USE TO CHECK GLUCOSE TWICE DAILY. E11.65 melatonin 5 mg tablet Take 5 mg by mouth daily at bedtime. FAMILY HISTORY Problem Relation Age of Onset Arthritis Mother Emphysema Father FROM THIS Breast Cancer Paternal Aunt Diabetes Brother Social History Tobacco Use Smoking s (more content not included)... [facility] 09-23-2022 Note HNO ID: [id number] Author: Nikole Alvarenga RN Service: ? Author Type: Registered Nurse Type: Progress Notes Filed: 09/23/2022 11:57 AM Note Text: Per Dr. Osorio, Swathi was provided with Gel Powerstep inserts, size 7-8.5 W, and instructed/educated in its application, wear, and care. All questions were answered, and patient was able to demonstrate competence with the necessary skills to utilize the above equipment. Nikole Alvarenga RN [facility] 09-23-2022 Note HNO ID: [id number] Author: Renetat Osorio Service: ? Author Type: Physician Type: Progress Notes Filed: 09/23/2022 11:57 AM Note Text: Consultation requested by Dr. Arora for an opinion regarding right heel pain. My final recommendations will be communicated back to the requesting physician by way of shared Medical record or letter to requesting physician via US mail. Initial office visit: This is a 77 year old female who complains of heel pain b/l that has been present for several months. Patient states that pain is worse in the am and after periods of rest. Also painful following extended activity. Patient has not tried anything to alleviate problem. Pain level is currently 9/10. Patient had similar issues in the past. Is unsure if she had a shot for the heel pain because she also was having pain in the knee so she may recall a shot in the knee. PAIN EVALUATION 09/23/2022 1107 Pain Level: 7 9/10 after walking around store Pain Location: Foot-Right Description: Stabbing Duration Units: Months Frequency: Continuous Intervention/Comfort measure: Reposition;Distractions;Relaxation PCP: Mari Arora MD PAST MEDICAL HISTORY Diagnosis Date Diabetes mellitus type 2, controlled (HCC) Essential hypertension, benign Pure hypercholesterolemia BORDERLINE Current Outpatient Medications Medication Sig lovastatin 40 mg tablet Take 1 tablet by mouth daily with dinner. amLODIPine (NORVASC) 10 mg tablet Take 1 tablet by mouth once daily. valsartan (DIOVAN) 80 mg tablet Take 1 tablet by mouth once daily. metFORMIN ER (GLUCOPHAGE XR) 500 mg 24 hr tablet Take 1 tablet by mouth daily with breakfast. levothyroxine (LEVOXYL) 50 mcg tablet Take 1 tablet by mouth once daily. Take on empty stomach. For Thyroid dulaglutide (TRULICITY) 4.5 mg/0.5 mL pen injector Inject 4.5 mg subcutaneously one time a week. glipiZIDE (GLUCOTROL XL) 10mg 24 hr tablet Take 2 tablets by mouth once daily. Aug Betamethasone Dipropionate (DIPROLENE) 0.05 % ointment Lancing Device with Lancets (Techstars) Use to check blood sugars as directed. blood sugar diagnostic (GrupHediyeUCH VERIO TEST STRIPS) test strip Use as instructed to check blood sugar twice daily E.11.65 carvedilol (COREG) 25 mg tablet Take 1 tablet by mouth twice daily. latanoprost (XALATAN) 0.005 % ophthalmic solution timolol maleate (TIMOPTIC) 0.5 % ophthalmic solution lancets (SafedoX TOUCH Streyner) 33 gauge USE TO CHECK GLUCOSE TWICE DAILY. E11.65 ferrous sulfate EC 324 mg (65 mg iron) TbEC Take 324 mg by mouth every other day. melatonin 5 mg tablet Take 5 mg by mouth daily at bedtime. famotidine (PEPCID) 20 mg tablet Take 1 tablet by mouth at bedtime as needed. (Patient not taking: Reported on 09/23/2022) aspirin, enteric coated (ADULT LOW DOSE ASPIRIN) 81 mg EC tablet Take 1 tablet by mouth once daily. (Patient not taking: Reported on 09/23/2022) No current facility-administered medications for this visit. ALLERGIES Allergen Reactions Hctz [Lisinopril-Hy* Rash RASH AND PHOTOSENSITIVITY Hydralazine Rash Magnesium Rash Prednisone Itching Prinizide [Other] Rash PAST SURGICAL HISTORY Procedure Laterality Date COLONOSCOPY FLX DX W/COLLJ SPEC WHEN PFRMD 10/06/2012 Colonoscopy FAMILY HISTORY Problem Relation Age of Onset Arthritis Mother Emphysema Father FROM THIS Breast Cancer Paternal Aunt Diabetes Brother Social History Tobacco Use Smoking status: Never Smokeless tobacco: Never Vaping Use Vaping Use: Never used Substance Use Topics Alcohol use: No Drug use: No REVIEW OF SYSTEMS GENERAL: Negative for Malaise, significant weight loss, fever RESPIRATORY: Negative for cough, wheezing and shortness of breath CARDIOVASCULAR: Negative for chest pain, leg swelling and palpitations GI: Negative for abdominal discomfort, blood in stools or black stools and change in bowel habits : Negative for dysuria, frequency and incontinence MUSCULOSKELETAL: Negative for joint pain or swelling, back pain, and muscle pain. SKIN: Negative for lesions, rash, and itching. HEMATOLOGY/LYMPHOLOGY Negative for prolonged bleeding, bruising easily, and swollen nodes. ENDOCRINE: Negative for cold or heat intolerance, polyuria, polydipsia and goiter. NEURO: negative OBJECTIVE EXAMINATION: Constitutional: Pt is a well developed 77 year old female who is alert, oriented, cooperative and in no apparent distress. Eyes: Following during examination. No redness or drainage. Respiratory: RR normal and nonlabored. Even breathing. No evidence of distress. Psychology: Patient is engaged during conversation. Normal affect and mood. Does not appear depressed or anxious. DERM: Nails wnl. Negative maceration to webspaces with negative openings in skin noted b/l. No ulcerations, lesions or rashes noted. Hyperkeratosis not seen. VASC:DP/PT pulses palpable b/l. NEURO: Negative tinel/valleix with p (more content not included)... [facility] 09-23-2022 Note HNO ID: [id number] Author: Nikole Alvarenga RN Service: ? Author Type: Registered Nurse Type: Progress Notes Filed: 09/23/2022 11:57 AM Note Text: AMB ROOMING INTAKE FLOWSHEET DATA Pain Pain Level: 7 (9/10 after walking around store) Pain Location: Foot-Right Description: Stabbing Duration Units: Months Frequency: Continuous Intervention/Comfort measure: Reposition, Distractions, Relaxation Patient presents with: Left Foot - New, Pain Right Foot - New, Pain Patient presents for bilateral foot pain (plantar fasciitis), and right calcaneal spur. Patient states that the pain has been going on for months, Worse when first moving and when having been on feet a long period of time. X-ray done. [facility] 09-23-2022 History of Present illness Narrative Per Dr. Osorio, Swathi was provided with Gel Powerstep inserts, size 7-8.5 W, and instructed/educated in its application, wear, and care. All questions were answered, and patient was able to demonstrate competence with the necessary skills to utilize the above equipment. Nikole Alvarenga RN Images from the original note were not included. Consultation requested by Dr. Arora for an opinion regarding right heel pain. My final recommendations will be communicated back to the requesting physician by way of shared Medical record or letter to requesting physician via [place] mail. Initial office visit: This is a 77 year old female who complains of heel pain b/l that has been present for several months. Patient states that pain is worse in the am and after periods of rest. Also painful following extended activity. Patient has not tried anything to alleviate problem. Pain level is currently 9/10. Patient had similar issues in the past. Is unsure if she had a shot for the heel pain because she also was having pain in the knee so she may recall a shot in the knee. PAIN EVALUATION 09/23/2022 1107 Pain Level: 7 9/10 after walking around store Pain Location: Foot-Right Description: Stabbing Duration Units: Months Frequency: Continuous Intervention/Comfort measure: Reposition;Distractions;Relaxation PCP: Mari Arora MD PAST MEDICAL HISTORY Diagnosis Date Diabetes mellitus type 2, controlled (HCC) Essential hypertension, benign Pure hypercholesterolemia BORDERLINE Current Outpatient Medications Medication Sig lovastatin 40 mg tablet Take 1 tablet by mouth daily with dinner. amLODIPine (NORVASC) 10 mg tablet Take 1 tablet by mouth once daily. valsartan (DIOVAN) 80 mg tablet Take 1 tablet by mouth once daily. metFORMIN ER (GLUCOPHAGE XR) 500 mg 24 hr tablet Take 1 tablet by mouth daily with breakfast. levothyroxine (LEVOXYL) 50 mcg tablet Take 1 tablet by mouth once daily. Take on empty stomach. For Thyroid dulaglutide (TRULICITY) 4.5 mg/0.5 mL pen injector Inject 4.5 mg subcutaneously one time a week. glipiZIDE (GLUCOTROL XL) 10mg 24 hr tablet Take 2 tablets by mouth once daily. Aug Betamethasone Dipropionate (DIPROLENE) 0.05 % ointment Lancing Device with Lancets (ONE TOUCH Streyner) Use to check blood sugars as directed. blood sugar diagnostic (GrupHediyeUCH VERIO TEST STRIPS) test strip Use as instructed to check blood sugar twice daily E.11.65 carvedilol (COREG) 25 mg tablet Take 1 tablet by mouth twice daily. latanoprost (XALATAN) 0.005 % ophthalmic solution timolol maleate (TIMOPTIC) 0.5 % ophthalmic solution lancets (ONE TOUCH Streyner) 33 gauge USE TO CHECK GLUCOSE TWICE DAILY. E11.65 ferrous sulfate EC 324 mg (65 mg iron) TbEC Take 324 mg by mouth every other day. melatonin 5 mg tablet Take 5 mg by mouth daily at bedtime. famotidine (PEPCID) 20 mg tablet Take 1 tablet by mouth at bedtime as needed. (Patient not taking: Reported on 09/23/2022) aspirin, enteric coated (ADULT LOW DOSE ASPIRIN) 81 mg EC tablet Take 1 tablet by mouth once daily. (Patient not taking: Reported on 09/23/2022) No current facility-administered medications for this visit. ALLERGIES Allergen Reactions Hctz [Lisinopril-Hy* Rash RASH AND PHOTOSENSITIVITY Hydralazine Rash Magnesium Rash Prednisone Itching Prinizide [Other] Rash PAST SURGICAL HISTORY Procedure Laterality Date COLONOSCOPY FLX DX W/COLLJ SPEC WHEN PFRMD 10/06/2012 Colonoscopy FAMILY HISTORY Problem Relation Age of Onset Arthritis Mother Emphysema Father FROM THIS Breast Cancer Paternal Aunt Diabetes Brother Social History Tobacco Use Smoking status: Never Smokeless tobacco: Never Vaping Use Vaping Use: Never used Substance Use Topics Alcohol use: No Drug use: No REVIEW OF SYSTEMS GENERAL: Negative for Malaise, significant weight loss, fever RESPIRATORY: Negative for cough, wheezing and shortness of breath CARDIOVASCULAR: Negative for chest pain, leg swelling and palpitations GI: Negative for abdominal discomfort, blood in stools or black stools and change in bowel habits : Negative for dysuria, frequency and incontinence MUSCULOSKELETAL: Negative for joint pain or swelling, back pain, and muscle pain. SKIN: Negative for lesions, rash, and itching. HEMATOLOGY/LYMPHOLOGY Negative for prolonged bleeding, bruising easily, and swollen nodes. ENDOCRINE: Negative for cold or heat intolerance, polyuria, polydipsia and goiter. NEURO: negative OBJECTIVE EXAMINATION: Constitutional: Pt is a well developed 77 year old female who is alert, oriented, cooperative and in no apparent distress. Eyes: Following during examination. No redness or drainage. Respiratory: RR normal and nonlabored. Even breathing. No evidence of distress. Psychology: Patient is engaged during conversation. Normal affect and mood. Does not appear depressed or anxious. DERM: Nails wnl. Negative maceration to webspaces with negative openings in skin noted b/l. No ulcerations, lesions or rashes noted. Hyperkeratosis not seen. VASC:DP/PT pulses palpable b/l. NEURO: Negative tinel/valleix with percussion of tibial or medial calcaneal nerve. Intact light touch and protective sensation as tested with 5.07 SWMF b/l. MS:Pain noted to palpation of plantar medial tubercle of right foot. No pain noted with percussion of abductor hallucis muscle belly. No pain with lateral compression calcaneus or Achilles tendon. No pain with percussion of PT or peroneal tendons. Patient with decreased AJ ROM with knee extended and flexed. 1st ray ROM is full when loaded and full when unloaded. No pain or crepitus noted with ROM of AJ or 1st ray. STJ/MTJ are both full and free of pain and crepitus. Radiographs: plantar heel spur, right fot Assessment: (M77.31) Calcaneal spur of right foot (M72.2) Plantar fasciitis Plan: 1. Initial Office Visit - A thorough review of the patient's PMH and Podiatric physical exam was completed. 2. Patient advised to perform stretching excercises, icing, and to make appropriate shoe gear changes to include wearing athletic-type shoes with supportive insoles. No barefoot walking. Patient also given written instructions on how to correctly perform the stretching of the achilles tendon/calf stretches, and the heel spur/plantar fasciitis regimen. 3. Patient advised to seek wide, deep toe box, accomodative, comfortable, lace-up, athletic/walking type footwear that includes motion control characteristics for support and cushion that need to be worn at all times when weight-bearing. Shoes should be tested for torsional stability as well as proper bending at the toebox rather than at the midfoot. Good quality shoes such as, but not limited to, New Balance or Asics are examples of more proper foot gear. 4. Patient recommended to get powerstep insoles for proper support of the arch in order to alleviate the tension and stress on the plantar fascia associated with normal daily walking. Patient advised that these modalities used in conjunction with stretching and icing are able to alleviate most symptoms from this condition. 5. Discussed injection. Patient declined. If pain fails to improve, consider injection Renetta Osorio DPM AMB ROOMING INTAKE FLOWSHEET DATA Pain Pain Level: 7 (9/10 after walking around store) Pain Location: Foot-Right Description: Stabbing Duration Units: Months Frequency: Continuous Intervention/Comfort measure: Reposition, Distractions, Relaxation Patient presents with: Left Foot - New, Pain Right Foot - New, Pain Patient presents for bilateral foot pain (plantar fasciitis), and right calcaneal spur. Patient states that the pain has been going on for months, Worse when first moving and when having been on feet a long period of time. X-ray done. documented in this encounter [facility] 09-23-2022 Instructions Renetta Osorio - 09/23/2022 11:40 AM EST Images from the original note were not included. What is Plantar Fasciitis? Plantar fasciitis is the most common cause of heel pain. The pain is caused by inflammation of the plantar fascia. If you strain your plantar fascia, it becomes weak, swollen and irritated (inflamed). The resulting pain may be isolated in the heel or may appear at different points on the bottom of the foot, from time to time; it may occur in one foot or both. Some think that plantar fasciitis pain is caused by irritation of nerves from tissue swelling or inflammation, but it is debatable. Plantar fasciitis is common in middle-aged people; it also occurs in younger people who are on their feet a lot, such as athletes or soldiers. The plantar fascia is a strong band of connective tissue that extends from the base of the toes, along the bottom of the foot, to the bottom of the heel (calcaneous bone); it acts like a bowstring to maintain the arch of the foot. What are heel spurs? The inflammatory reaction of the heel bone may produce spike-like projections of new bone, called heel spurs. The spurs sometimes show on X-rays. They neither cause the initial pain nor do they cause the initial problem. However, later, having to walk on spurs may cause sharp pain. What causes plantar fasciitis? Plantar fasciitis is caused by straining the ligament that supports your arch. Repeated strain can cause tiny tears in the ligament. These lead to pain and swelling. During walking, the plantar fascia experiences tension up to twice the body weight with each step. While this is normal, those who spend much time on their feet, such as nurses, chucking and sawing machine operator/waiters, and mail carriers, often experience plantar fasciitis. Athletes involved in tennis or other racquet sports, race walking, jogging or running also show a higher incidence of plantar fasciitis than do those participating in other activities. Thus, it's clear that plantar fasciitis is predominantly an overuse injury. In fact, any activity that results in prolonged tension and stress on the plantar fascia may cause plantar fasciitis. It is possible that changes in footwear may play a role in causing plantar fasciitis, no matter what activity is occurring. Those who are overweight are prone to plantar fasciitis. This is true even for sedentary people who get little physical activity. Abnormalities of the foot and ankle joints may predispose some individuals to development of plantar fasciitis (specifically, over pronation of the subtalar joint). Contributing Factors * Flat feet * Toe running, hill running * Sudden weight increase * High-arched, rigid feet * Soft terrain, e.g. running on sand * Obesity * Pronated feet (rolled inward) * Sudden increase in activity * Family tendency * Poor shoe support * Worn out or poorly fitted shoes * Increasing age * Walking, standing or running for long periods of time, especially on hard surfaces. How is the Injury Treated? Rest Your Feet: Limit, or if possible, stop activities that are causing your heel pain. Try to avoid running or walking on hard surfaces, such as concrete. Use pain as your guide. If your foot is too painful, rest it. Ice: Ice the sore area for 30 to 60 minutes, several times a day, to reduce inflammation and relieve pain. Apply a plastic bag of crushed ice (or a bag of frozen peas) over a towel. Ice the sore area for 15 minutes after activity/exercise. Application of heat is not generally recommended, as heat expands the bone and connective tissue, perhaps exerting greater pressure on nerves and thereby increasing pain. If heat is used, follow it with ice. Medication: If your condition developed recently, anti-inflammatory/analgesic medication, combined with heel pads (see below) may be all that is necessary to relieve pain and to reduce inflammation. If no pain relief has occurred after 2-3 weeks, however, your doctor may inject either cortisone or local anesthetic directly into the tender area. Exercises: Do simple exercises, such as calf stretches and towel stretches (see below) several times a day, especially when you first get up in the morning. These can help your ligament become more flexible and strengthen the muscles that support your arch. Shoes: Poorly fitting shoes can cause plantar fasciitis. The best type of shoe to wear is a good walking or running shoe with good shock absorption and excellent arch support. You should choose the one that fits the best. [place] with your athletic shoes to find a pair that is comfortable and causes fewer symptoms. Put your shoes on as soon as you get out of bed; going barefoot or wearing slippers may make your pain worse. Good brands include (but are not limited to): New Balance, Asics, Saucony, SAS and Merrel s. Taping: Your doctor may tape your foot to maintain the arch. This takes some of the tension off the plantar fascia. Weight Loss: If your weight is putting extra stress on your feet, your doctor may encourage you to try a weight-loss program. Orthotics: An orthotic insole is a molded piece of rubber, plastic, or other material that you insert into your shoe. It corrects the alignment of your foot and cushions your foot from excessive pounding. These may be prescription or non-prescription. Prescription orthotics are custom-fitted and may fit better and control pain better, but are very expensive. Night Splints: A night splint holds the foot with the toes pointed up and the ankle at a 90-degree angle. This position applies a constant, gentle stretch to the plantar fascia. Corticosteroid Shots: Steroids may be injected into the tender area to reduce inflammation. REHAB Exercises to stretch the plantar fascia, the calf muscles, and the Achilles tendon. Tightness of the muscles of the calves may contribute to plantar fasciitis, so stretching the calf muscles is important to rehabilitation, as is stretching of the plantar fascia itself. Plantar fascial stretches Assisted Dorsiflexion/Plantar Fascia Stretch: Sit on the floor or ground, barefoot, with both legs outstretched. Use a towel or elastic band and wrap it around the ball (and not the toes) of the affected foot. Use the towel or elastic band to provide resistance to upward movement of the forefoot. Pull foot upward (toward your body) with the help of the elastic band or towel, and then return to the starting position. Ten repetitions are recommended. Perform the sequence at least three times a day. Alternate Plantar Fascia Stretch: Sit upright in a chair, barefoot. Place the ankle of the affected foot on your opposite knee. Using the same hand as the affected foot, reach across and grab the toes. Flex the ankle toward and pull the toes toward the saeed. To test the stretch, place the thumb of your hand on the bottom of the foot. You should be able to feel the cord-like plantar fascia, running the length of the foot. Hold the stretch for a count of 10, then relax. Repeat 10 times. Do the sequence at least three times a day. Achilles/Calf Stretches Strengthening the muscles of the calves may contribute to successful rehabilitation of plantar fasciitis, as well as prevent reoccurrence. The exercises below will help strengthen the calf muscles. Calf and Achilles Tendon Stretch (Gastrocnemius Stretch): Face a wall, standing an arm's length away. Place one foot back. Place both hands on the wall. Bend the elbows and knee of your forward leg, keeping the heel of the backward foot on the floor and keeping your body straight (aligned), until your forehead nearly touches the wall, or until significant stretch is felt in the muscles of the calf of the backward leg. Hold this position for 10 to 15 seconds. Extend elbows (straighten your arms and stand upright again) and maintain this position for 10 seconds. Repeat this cycle 15 to 20 times. Switch legs and repeat the exercise. Powerstep Original Full length. Can purchase at [employer] here in [place], [employer] in [place] or [place]. Also can find in [place] in [facility]. Powersteps can also be purchased online, starting around $25.00 If you have a metatarsal or dancer pad for your feet apply the pad directly to the insole so you can interchange between your shoes. Find a shoe with a removable insole and take this out and replace with your powerstep insole. Always bring powersteps with you when shopping for shoes so that you can make sure that everything fits well together documented in this encounter [facility] 09-22-2022 Note HNO ID: [id number] Author: RT Nicko(Linda) Service: ? Author Type: Machine Shop Lead Man Type: Progress Notes Filed: 09/22/2022 11:37 AM Note Text: Radiology Service Progress Note PATIENT NAME: Swathi Otero DATE OF SERVICE: September 22, 2022 TIME: 11:25 AM PATIENT IDENTITY VERIFICATION COMPLETED USING TWO (2) IDENTIFIERS: Name and Date of confirmed by patient verbally. FALL SCREENING: Has the patient had 2 falls in the last year or 1 fall with injury or currently using an Ambulatory Assistive Device (Walker, Cane, Wheelchair, Crutches, etc.)? No PATIENT GENDER DATA: Female. status: : No status: NO. PATIENT RELEVANT IMPLANT DATA REVIEWED: Yes RADIOLOGY DEPARTMENT: General X-ray: Exam(s) Completed: Lower Extremity X-Ray(s): Foot, Right PERIPHERAL IV DATA: Not applicable SIGNED BY: RT Nicko(R) September 22, 2022 11:25 AM [facility] 08-14-2022 Miscellaneous Notes Patient has been identified by name and date of : Yes Last office visit in this department: 01/06/2022 RX INSTRUCTIONS: Patient aware RX will be sent to pharmacy. No need to notify patient. Patient phones requesting refills as follows: Requested Prescriptions Pending Prescriptions Disp Refills lovastatin 40 mg tablet 90 tablet 3 Sig: Take 1 tablet by mouth daily with dinner. Please review and advise. Sandy Lange documented in this encounter [facility] 07-03-2022 Miscellaneous Notes Patient has been identified by name and date of : Yes Patient phones for refill(s): Requested Prescriptions Pending Prescriptions Disp Refills amLODIPine (NORVASC) 10 mg tablet 90 tablet 3 Sig: Take 1 tablet by mouth once daily. Date of last office visit in primary care: 01/06/22 Last 2 Encounter Wt Readings: Date: Wt: 01/06/2022 93.5 kg (206 lb 3.2 oz) 08/12/2021 93.4 kg (206 lb) Previous labs/tests for medication: Not applicable Please advise. Thank you. Jessy Scherer LPN Patient has been identified by name and date of : Yes Requested Prescriptions Pending Prescriptions Disp Refills amLODIPine (NORVASC) 10 mg tablet 90 tablet 3 Sig: Take 1 tablet by mouth once daily. RX INSTRUCTIONS: Patient aware RX will be sent to pharmacy. No need to notify patient. Esp[employer]i [employer] documented in this encounter [facility] 02-18-2022 Miscellaneous Notes Patient calls to request a referral to podiatry. Patient reports that she is having problems with a right heel spur and right foot plantar fasciitis. Please call patient at [phone] to schedule once order placed. Mirtha Madrigal RN documented in this encounter [facility] 02-12-2022 Miscellaneous Notes February 12, 2022 PID: [id number] Swathi Otero [address] [place] [address] Dear Ms. Otero, We are pleased to inform you that the results of your recent breast imaging exam on 02/12/2022 are normal. Your mammogram demonstrates that you have dense breast tissue, which could hide abnormalities. Dense breast tissue, in and of itself, is a relatively common condition. Therefore, this information is not provided to cause undue concern; rather, it is to raise your awareness and promote discussion with your health care provider regarding the presence of dense breast tissue in addition to other risk factors. Early detection of cancer is very important. We also understand recommendations regarding breast cancer screening are controversial. Please discuss with your primary care provider which strategy is best for you and whether a mammogram is right for you. Your imaging studies and report will be kept on file at [facility] as part of your permanent medical record and are available for your continuing care. Thank you for allowing us to help in meeting your health care needs. Sincerely, Dr. Ruiz Interpreting Radiologist [facility] (Normal over 40) documented in this encounter [facility] 02-12-2022 History of Present illness Narrative Radiology Service Progress Note PATIENT NAME: Swathi Otero DATE OF SERVICE: February 12, 2022 TIME: 11:09 AM PATIENT IDENTITY VERIFICATION COMPLETED USING TWO (2) IDENTIFIERS: Name and Date of confirmed by patient verbally. FALL SCREENING: Has the patient had 2 falls in the last year or 1 fall with injury or currently using an Ambulatory Assistive Device (Walker, Cane, Wheelchair, Crutches, etc.)? No PATIENT GENDER DATA: Female. status: : No status: NO. PATIENT RELEVANT IMPLANT DATA REVIEWED: Not Applicable RADIOLOGY DEPARTMENT: Mammography PERIPHERAL IV DATA: Not applicable SIGNED BY: Harish Chappell February 12, 2022 11:09 AM documented in this encounter [facility] 02-10-2022 Miscellaneous Notes Pt reports she is running very low on two of them. Patient has been identified by name and date of : Yes Patient phones for refill(s): Pending Prescriptions Disp Refills VALSARTAN 80 MG TABLET 90 tablet 3 Sig: Take 1 tablet by mouth once daily. ALBERTA: No METFORMIN ER 500 MG TABLET,EXTENDED RELEASE 24 HR 90 tablet 3 Sig: Take 1 tablet by mouth daily with breakfast. ALBERTA: No LOVASTATIN 40 MG TABLET 90 tablet 3 Sig: Take 1 tablet by mouth daily with dinner. ALBERTA: No Date of last office visit in primary care: 01/06/22 Future visit: none Last 2 Encounter Wt Readings: Date: Wt: 01/06/2022 93.5 kg (206 lb 3.2 oz) 08/12/2021 93.4 kg (206 lb) Previous labs/tests for medication: Diabetes: Hemoglobin A1C (%) Date Value 01/02/2022 7.3 08/11/2021 7.4 05/08/2021 7.4 Cholesterol: HDL Cholesterol (mg/dL) Date Value 01/02/2022 54 08/11/2021 60 LDL Cholesterol (mg/dL) Date Value 01/02/2022 67 08/11/2021 75 ALT (U/L) Date Value 01/02/2022 19 08/11/2021 18 Non HDL Cholesterol, Nonfasting (mg/dL) Date Value 09/28/2017 116 Non HDL Cholesterol (mg/dL) Date Value 01/02/2022 102 08/11/2021 100 Blood Pressure: BUN (mg/dL) Date Value 01/02/2022 12 08/11/2021 13 Sodium (mmol/L) Date Value 01/02/2022 138 08/11/2021 140 Last 1 Encounter BP Readings: Date: BP: 01/06/2022 118/68 Please advise. Thank you. Nikole Avilez RN documented in this encounter [facility] 01-07-2022 Miscellaneous Notes [facility] requesting they call pt to arrange. Patient is requesting METHACHOLINE CHALLENGE order be sent to the [facility] documented in this encounter [facility] 01-06-2022 History of Present illness Narrative Welcome To Medicare Visit Medical B eligibility date none in the past year Date of last exam PAST MEDICAL HISTORY Diagnosis Date Diabetes mellitus type 2, controlled (HCC) Essential hypertension, benign Pure hypercholesterolemia BORDERLINE PAST SURGICAL HISTORY Procedure Laterality Date COLONOSCOPY FLX DX W/COLLJ SPEC WHEN PFRMD 10/06/2012 Colonoscopy Hctz [Lisinopril-Hydrochlorothiazide], Hydralazine, Magnesium, and Prinizide [Other] Medications reviewed: Yes FAMILY HISTORY Problem Relation Age of Onset Arthritis Mother Emphysema Father FROM THIS Breast Cancer Paternal Aunt Diabetes Brother SOCIAL HISTORY: Social History Tobacco Use Smoking status: Never Smoker Smokeless tobacco: Never Used Substance Use Topics Alcohol use: No Drug use: No Swathi denies regular aerobic exercise. She watches her diet for sodium, low fat and low cholesterol most of the time. List of current specialists seen: Eye doctor End of Live Planning discussed including patients advanced directive wishes: Yes I am willing to follow Swathi's advanced directives. PHQ-2 / Depression screen She in the past two weeks denies having felt down, depressed, hopeless or with little interest or pleasure in doing things. Functional Ability/Safety Screen 1. Was the patient's timed Up and Go test unsteady or longer than 30 seconds? No 2. Does the patient need help with the phone, transportation, shopping,preparing meals, housework, laundry, medications or managing money? No 3. Does your home have rugs in the hallway, lack of grab bars in the bathroom, lack of handrails on the stairs or have poor lighting? No Hearing Evaluation: normal PHYSICAL EXAM BP 158/74 Pulse 80 Temp (!) 35.9 C (96.6 F) (Temporal) Resp 22 Wt 93.5 kg (206 lb 3.2 oz) SpO2 94% BMI 41.65 kg/m Alert and oriented X 3: YES Body mass index is 41.65 kg/m . ASSESSMENT/PLAN: 76 year old female The following prevention plan was discussed during the office visit and provided to the patient: - Glaucoma screening - Lipid panel Mari Ganta, MD Reason for Visit Patient presents with: F/U HTN 6 Month Swathi Lopez Elder is a 76 year old female who presents here today for Above Complaints.. Health Maintenance ADVANCE DIRECTIVE DISCUSSION DIABETIC FOOT EXAM MAMMOGRAM HPI Patient brought in a log of bps and blood sugar levels , BP is usually in the teens and and 20s systolic ,sugars are between 120 to 140. Had blood work recently hba1c is 7.3, a little better than before. Rest of the blood work was in limits. Already on anderson for macroalbuminuria bp is a little high today Diabetes Mellitus: she lsota round 10 pounds and is not budging from there. On trulicity at 4.5 , and she is able to tolerate the medication. Limited exercise because of knees, has a glider at home and needs to get on it, she has not been using it. Cough: chronic cough, last visit, xr was normal, Lung volumes suggest restriction, they were done 5 years ago though and she refused to see lung doctors and hesitant to see anyone even now. She had been on an inhaler a while ago and she stopped it because she did not feel it helped it. Wants to see them first and then get on lung medication Will try Pepcid. Not wiling to travel out of [place]. She does has sob , just the cough, which is mostly all day round. She has interuppted sleep, nocturia. She denies feels tired all the time, she does nap once in a while, does not feel the need to nap all the time, she reads a lot. No problem-specific Assessment & Plan notes found for this encounter. PAST MEDICAL HISTORY Diagnosis Date Diabetes mellitus type 2, controlled (HCC) Essential hypertension, benign Pure hypercholesterolemia BORDERLINE PAST SURGICAL HISTORY Procedure Laterality Date COLONOSCOPY FLX DX W/COLLJ SPEC WHEN PFRMD 10/06/2012 Colonoscopy FAMILY HISTORY Problem Relation Age of Onset Arthritis Mother Emphysema Father FROM THIS Breast Cancer Paternal Aunt Diabetes Brother Social History Tobacco Use Smoking status: Never Smoker Smokeless tobacco: Never Used Substance Use Topics Alcohol use: No Drug use: No Past medical history, appointments, medications, allergies reviewed. Pertinent Lab/Diagnostic Studies are reviewed and discussed today Current Outpatient Medications: amLODIPine (NORVASC) 10 mg tablet aspirin, enteric coated (ADULT LOW DOSE ASPIRIN) 81 mg EC tablet dulaglutide (TRULICITY) 4.5 mg/0.5 mL pen injector glipiZIDE (GLUCOTROL XL) 10mg 24 hr tablet Aug Betamethasone Dipropionate (DIPROLENE) 0.05 % ointment Lancing Device with Lancets (ONE TOUCH DELOja.la) valsartan (DIOVAN) 80 mg tablet blood sugar diagnostic (Grup[employer]edi[employer]CH VERIO TEST STRIPS) test strip carvedilol (COREG) 25 mg tablet latanoprost (XALATAN) 0.005 % ophthalmic solution timolol maleate (TIMOPTIC) 0.5 % ophthalmic solution metFORMIN ER (GLUCOPHAGE XR) 500 mg 24 hr tablet lovastatin 40 mg tablet lancets (ONE TOUCH DELICA) 33 gauge levothyroxine (LEVOXYL) 50 mcg tablet ferrous sulfate EC 324 mg (65 mg iron) TbEC melatonin 5 mg tablet Review of Systems CONSTITUTIONAL: No fevers, chills night sweats, unintended weight loss CARDIOVASCULAR: No chest pain, dyspnea, palpitations, orthopnea, PND, ankle edema. PULM: No dyspnea, unexplained cough. GI: No dysphagia/odynophagia, problematic reflux, constipation, diarrhea, changes in stool habits, hematochezia, melena. : No new urinary complaints, including dysuria, gross hematuria or pyuria. NEURO: No new balance problems, peripheral weakness/paresthesias or numbness of concern. Physical Exam BP 158/74 Pulse 80 Temp (!) 35.9 C (96.6 F) (Temporal) Resp 22 Wt 93.5 kg (206 lb 3.2 oz) SpO2 94% BMI 41.65 kg/m General appearance: Well appearing, alert, in no acute distress, well nourished. Skin: Skin color, texture, turgor normal, no suspicious rashes or lesions Head: Normocephalic, no masses, lesions, tenderness or abnormalities Eyes: Anicteric sclera. Pupils are equally round and reactive to light. Extraocular movements are intact. Lungs: wheezing both lung Heart: RRR without murmur, gallop, or rubs. Extremities: No deformities, edema, skin discoloration, clubbing or cyanosis. Good capillary refill. ASSESSMENT/PLAN: 1. Medicare annual wellness visit, subsequent - ICD9: V70.0, ICD10: Z00.00 (primary diagnosis) - Counseled on healthy diet and regular exercise - Calcium intake with supplements or by diet of 1000 mg/day for under 50, 7312-0622 mg/day for 50+ 2. Abnormal lung function test - ICD9: 794.2, ICD10: R94.2 - CONSULT TO PULMONARY MEDICINE - METHACHOLINE CHALLENGE - CONSULT TO PULM/CRITICAL CARE 3. Cough - ICD9: 786.2, ICD10: R05.9 She def has asthma and stopped taking her medication that she used to take in the past. Does not want to start till she sees pulm - CONSULT TO PULMONARY MEDICINE - METHACHOLINE CHALLENGE - CONSULT TO PULM/CRITICAL CARE 4. Morbid obesity with BMI of 40.0-44.9, adult (HCC) - ICD9: 278.01, V85.41, ICD10: E66.01, Z68.41 Stable - Continue current medications 5. Type 2 diabetes mellitus with microalbuminuria, without long-term current use of insulin (HCC) - ICD9: 250.40, 791.0, ICD10: E11.29, R80.9 Controlled. - Continue current medications 6. Hypothyroidism, unspecified type - ICD9: 244.9, ICD10: E03.9 - Instructed patient on importance of taking on an empty stomach either first thing in the morning or at bedtime. Stable - Continue current medications 7. Essential hypertension - ICD9: 401.9, ICD10: I10 - good control - Recommended regular aerobic exercise. - Recommend home blood pressure monitoring, to bring results in on next visit - Goal of BP <130/80 8. Mixed hyperlipidemia - ICD9: 272.2, ICD10: E78.2 - good control - Continue current medication. Mari Arora MD documented in this encounter [facility] 12-29-2021 Miscellaneous Notes Patient has been identified by name and date of : Yes Patient phones for refill(s): Pending Prescriptions Disp Refills TRULICITY 4.5 MG/0.5 ML SUBCUTANEOUS PEN INJECTOR 6 mL 3 Sig: Inject 4.5 mg subcutaneously one time a week. ALBERTA: No Date of last office visit in primary care: 08/12/2021 Checkup: 01/06/2022 Last 2 Encounter Wt Readings: Date: Wt: 08/12/2021 93.4 kg (206 lb) 01/22/2021 93.4 kg (206 lb) Previous labs/tests for medication: Diabetes: Hemoglobin A1C (%) Date Value 08/11/2021 7.4 05/08/2021 7.4 Please advise. Thank you. Merlene Cleaning LPN documented in this encounter [facility] 11-27-2021 History of Present illness Narrative Primary Care Pharmacy Visit CC (Reason for Consult): DM and HTN Goal: A1c < 7%, BP < 130/80 mmHg Collaborating Provider: Dr. Arora Last Collaborating Provider Visit: 08/12/21 Swathi Otero is a 76 year old female presenting for follow up visit by telephone. Patient consents to pharmacy collaborative practice agreement. . Patient is presenting today for f/up pharmacotherapy management appointment for diabetes and HTN. At PharmD visit on 09/19, valsartan replaced losartan and glimepiride was switched to glipizide. At last PharmD visit on 10/23, glipizide was increased and patient was advised to take carvedilol in divided dosing instead of once daily. Subjective: HPI: Patient reports taking higher dose of glipizide and tolerating fine. She is worried about getting confused with taking a 10mg and a 5mg tablet, she would prefer a 15mg tablet or to take 20mg (2 tablets of 10mg). Taking the split dose of carvedilol. Denies any dizziness or light-headedness. Current DM Medications: Metformin ER 500mg daily (max-tolerated dose, tried numerous times) Dulaglutide (Trulicity) 4.5mg weekly on Saturdays Glipizide ER 10 and 5mg tabs - 15mg daily GLYCEMIC CONTROL: Glucometer present at visit: No SMBG s: Date Fasting AM 2 hr PP Before Lunch 2 hr PP Before Dinner 2 hr PP Bedtime 11/26 138 11/25 132 11/24 135 11/23 140 11/22 138 11/21 139 156 Hypoglycemia: none Current HTN Medications: Amlodipine 10mg daily Valsartan 80mg daily Carvedilol 25mg BID Past HTN medications: Clonidine 0.1 BID - patient self-stopped d/t ADEs Lisinopril-HCTZ - had rash and photosensitivity Furosemide Home BP monitoring?: yes Type of cuff: arm Home BP Log Date BP Pulse 11/26 115/67 85 122/71 74 123/71 81 126/66 78 127/75 75 139/73 76 Preventative Medications: On ANDERSON/ARB: Yes On Statin: Yes ROS: Patient denies CP, SOB, ROBERTSON, blurred vision, dizziness or lightheadedness Patient denies symptoms of hypoglycemia (sweating, anxiety, palpitations, hunger, and tremor) Patient denies symptoms of hyperglycemia (polyuria, polydipsia, polyphagia) Patient denies potential medication adverse effects DIET/EXERCISE/SOCIAL Hx: No changes MEDICATIONS: Pill bottles are not present Adherence: denies missed doses Pharmacy: [facility], needles and test strips come from [facility] in [place] Rx coverage: Medicare and [employer] Affordability: no issues Diabetes supplies: [place] System: none, uses pill box when she travels Past medical, family and social history reviewed and updated. ACTIVE PROBLEM LIST Essential Hypertension Morbid Obesity With Bmi of 40.0-44.9, Adult (Hcc) Mixed Hyperlipidemia Circumscribed Scleroderma Uncontrolled Type 2 Diabetes Mellitus With Microalbuminuria, Without Long-Term Current Use of Insulin Cervical Spine Degeneration Albuminuria Left Leg Pain Hypothyroidism PAST MEDICAL HISTORY Diagnosis Date Diabetes mellitus type 2, controlled (HCC) Essential hypertension, benign Pure hypercholesterolemia BORDERLINE ALLERGIES Allergen Reactions Hctz [Lisinopril-Hy* Rash RASH AND PHOTOSENSITIVITY Hydralazine Rash Magnesium Rash Prinizide [Other] Rash Medication List Medication Directions Comments Action/Plan amLODIPine (NORVASC) 10 mg tablet Take 1 tablet by mouth once daily. aspirin, enteric coated (ADULT LOW DOSE ASPIRIN) 81 mg EC tablet Take 1 tablet by mouth once daily. Aug Betamethasone Dipropionate (DIPROLENE) 0.05 % ointment None Entered blood sugar diagnostic (ONETOUCH VERIO TEST STRIPS) test strip Use as instructed to check blood sugar twice daily E.11.65 carvedilol (COREG) 25 mg tablet Take 1 tablet by mouth twice daily. dulaglutide (TRULICITY) 4.5 mg/0.5 mL pen injector Inject 4.5 mg subcutaneously one time a week. ferrous sulfate EC 324 mg (65 mg iron) TbEC Take 324 mg by mouth every other day. glipiZIDE (GLUCOTROL XL) 10mg 24 hr tablet Take 1 tablet by mouth once daily. glipiZIDE (GLUCOTROL XL) 5 mg 24 hr tablet Take 1 tablet by mouth once daily. Take this in addition to the 10mg tablet (15mg daily). lancets (ONE TOUCH [place]) 33 gauge USE TO CHECK GLUCOSE TWICE DAILY. E11.65 Lancing Device with Lancets ([employer]) Use to check blood sugars as directed. latanoprost (XALATAN) 0.005 % ophthalmic solution None Entered levothyroxine (LEVOXYL) 50 mcg tablet Take 1 tablet by mouth once daily. Take on empty stomach. For Thyroid lovastatin 40 mg tablet Take 1 tablet by mouth daily with dinner. melatonin 5 mg tablet Take 5 mg by mouth daily at bedtime. metFORMIN ER (GLUCOPHAGE XR) 500 mg 24 hr tablet Take 1 tablet by mouth daily with breakfast. timolol maleate (TIMOPTIC) 0.5 % ophthalmic solution None Entered valsartan (DIOVAN) 80 mg tablet Take 1 tablet by mouth once daily. Objective: Exam: Last 3 Encounter BP Readings: Date: BP: 10/23/2021 136/69 08/12/2021 140/70 01/22/2021 140/74 Wt: 93.4 kg (206 lb) BMI: 41.61 kg/(m^2) LABS: Reviewed Lab Results Component Value Date HBA1C 7.4 08/11/2021 HBA1C 7.4 05/08/2021 HBA1C 7.4 01/20/2021 CMP: Glucose 150 08/11/2021 BUN 13 08/11/2021 Creatinine 0.90 08/11/2021 Sodium 140 08/11/2021 Potassium 4.5 08/11/2021 Chloride 101 08/11/2021 CO2 28 08/11/2021 Protein, Total 6.8 08/11/2021 Albumin 4.5 08/11/2021 Calcium 9.4 08/11/2021 Alkaline Phosphatase 81 08/11/2021 Bilirubin, Total 0.5 08/11/2021 AST 22 08/11/2021 ALT 18 08/11/2021 eGFR >60 (per CMP 08/11/21) Lab Results Component Value Date CHOL 160 08/11/2021 LDL 75 08/11/2021 HDL 60 08/11/2021 TG 127 08/11/2021 The 10-year ASCVD risk score (Janelle ZALDIVAR Jr., et al., 2013) is: 36.1% Values used to calculate the score: Age: 76 years Sex: Female Is Non- : No Diabetic: Yes Tobacco smoker: No Systolic Blood Pressure: 136 mmHg Is BP treated: Yes HDL Cholesterol: 60 mg/dL Total Cholesterol: 160 mg/dL Albumin/Creat Ratio (mg/g) Date Value 01/20/2021 53 (H) PHARMACOTHERAPY ASSESSMENT/PLAN: 1. Type 2 diabetes mellitus with microalbuminuria, without long-term current use of insulin (HCC) - ICD9: 250.40, 791.0, ICD10: E11.29, R80.9 (primary diagnosis) A1c goal < 7% though could consider less strict goal of <7.5% given age; borderline control (last A1c 7.4%); SMBGs reasonably controlled and mostly within goal range; patient tolerating increased glipizide well though is concerned about getting confused with having different strength tablets; will increase dose today for better BG reduction and to allow for using 1 tablet strength (2 pills of 10mg tabs); no concerns for lows; renal fxn and LFTs sufficient for use INCREASE glipizide XL to 20mg daily (2 tabs of 10mg) CONTINUE metformin ER 500mg daily and Trulicity 4.5mg daily Encouraged increased physical activity HbA1c: due now 2. Essential hypertension - ICD9: 401.9, ICD10: I10 BP goal < 130/80; home readings are at goal since dividing carvedilol dose to BID dosing instead of daily dosing; no dizziness or light-headedness; overall feeling well; renal fxn, K+, and HR sufficient for use CONTINUE amlodipine 10mg daily, valsartan 80mg daily, and carvedilol 25mg BID BP check in office in 1.5 month BMP with next labwork (already ordered) Patient is scheduled to see PCP on 01/06. Patient verbalized understanding of instructions. Triny Vazquez, CassandraD, BCPS Primary Care Clinical Pharmacist [facility] Lee [facility] The majority of the pharmacy visit (> 50%) was spent counseling and/or coordinating care for the patient. interaction: telephonic time was 12 minutes. documented in this encounter [facility] documented as of this encounter (statuses as of 11/27/2021) [facility] History of Past illness Narrative* Problem Noted Date Resolved Date Headache(784.0) 10/23/2010 06/12/2015 Itchy skin of anus and genitals 11/22/2009 06/12/2015 Dysmetabolic syndrome X 05/25/2006 11/23/19 10 documented as of this encounter (statuses as of 12/29/2021) [facility] History of Past illness Narrative* Problem Noted Date Resolved Date Headache(784.0) 10/23/2010 06/12/2015 Itchy skin of anus and genitals 11/22/2009 06/12/2015 Dysmetabolic syndrome X 05/25/2006 11/23/19 10 documented as of this encounter (statuses as of 01/06/2022) [facility] History of Past illness Narrative* Problem Noted Date Resolved Date Headache(784.0) 10/23/2010 06/12/2015 Itchy skin of anus and genitals 11/22/2009 06/12/2015 Dysmetabolic syndrome X 05/25/2006 11/23/19 10 documented as of this encounter (statuses as of 02/10/2022) [address]17-2011 History of Past illness Narrative* Problem Noted Date Resolved Date Headache(784.0) 10/23/2010 06/12/2015 Itchy skin of anus and genitals 11/22/2009 06/12/2015 Dysmetabolic syndrome X 05/25/2006 11/23/19 10 documented as of this encounter (statuses as of 02/13/2022) [address]17-2011 History of Past illness Narrative* Problem Noted Date Resolved Date Headache(784.0) 10/23/2010 06/12/2015 Itchy skin of anus and genitals 11/22/2009 06/12/2015 Dysmetabolic syndrome X 05/25/2006 11/23/19 10 documented as of this encounter (statuses as of 02/14/2022) [address]17-2011 History of Past illness Narrative* Problem Noted Date Resolved Date Headache(784.0) 10/23/2010 06/12/2015 Itchy skin of anus and genitals 11/22/2009 06/12/2015 Dysmetabolic syndrome X 05/25/2006 11/23/19 10 documented as of this encounter (statuses as of 02/18/2022) [address]17-2011 History of Past illness Narrative* Problem Noted Date Resolved Date Headache(784.0) 10/23/2010 06/12/2015 Itchy skin of anus and genitals 11/22/2009 06/12/2015 Dysmetabolic syndrome X 05/25/2006 11/23/19 10 documented as of this encounter (statuses as of 02/20/2022) [address]17-2011 History of Past illness Narrative* Problem Noted Date Resolved Date Headache(784.0) 10/23/2010 06/12/2015 Itchy skin of anus and genitals 11/22/2009 06/12/2015 Dysmetabolic syndrome X 05/25/2006 11/23/19 10 documented as of this encounter (statuses as of 07/03/2022) [address]17-2011 History of Past illness Narrative* Problem Noted Date Resolved Date Headache(784.0) 10/23/2010 06/12/2015 Itchy skin of anus and genitals 11/22/2009 06/12/2015 Dysmetabolic syndrome X 05/25/2006 11/23/19 10 documented as of this encounter (statuses as of 08/17/2022) [address]17-2011 History of Past illness Narrative* Problem Noted Date Resolved Date Headache(784.0) 10/23/2010 06/12/2015 Itchy skin of anus and genitals 11/22/2009 06/12/2015 Dysmetabolic syndrome X 05/25/2006 11/23/19 10 documented as of this encounter (statuses as of 09/23/2022) [address]17-2011 History of Past illness Narrative* Problem Noted Date Resolved Date Headache(784.0) 10/23/2010 06/12/2015 Itchy skin of anus and genitals 11/22/2009 06/12/2015 Dysmetabolic syndrome X 05/25/2006 11/23/19 10 documented as of this encounter (statuses as of 11/16/2022) [address]17-2011 History of Past illness Narrative* Problem Noted Date Resolved Date Headache(784.0) 10/23/2010 06/12/2015 Itchy skin of anus and genitals 11/22/2009 06/12/2015 Dysmetabolic syndrome X 05/25/2006 11/23/19 10 documented as of this encounter (statuses as of 11/27/2022) [address]17-2011 History of Past illness Narrative* Problem Noted Date Resolved Date Headache(784.0) 10/23/2010 06/12/2015 Itchy skin of anus and genitals 11/22/2009 06/12/2015 Dysmetabolic syndrome X 05/25/2006 11/23/19 10 documented as of this encounter (statuses as of 12/15/2022) [address]17-2011 History of Past illness Narrative* Problem Noted Date Resolved Date Headache(784.0) 10/23/2010 06/12/2015 Itchy skin of anus and genitals 11/22/2009 06/12/2015 Dysmetabolic syndrome X 05/25/2006 11/23/19 10 documented as of this encounter (statuses as of 12/25/2022) [address]17-2011 History of Past illness Narrative* Problem Noted Date Resolved Date Headache(784.0) 10/23/2010 06/12/2015 Itchy skin of anus and genitals 11/22/2009 06/12/2015 Dysmetabolic syndrome X 05/25/2006 11/23/19 10 documented as of this encounter (statuses as of 01/13/2023) [address]17-2011 History of Past illness Narrative* Problem Noted Date Resolved Date Headache(784.0) 10/23/2010 06/12/2015 Itchy skin of anus and genitals 11/22/2009 06/12/2015 Dysmetabolic syndrome X 05/25/2006 11/23/19 10 documented as of this encounter (statuses as of 01/20/2023) [address]17-2011 History of Past illness Narrative* Problem Noted Date Resolved Date Headache(784.0) 10/23/2010 06/12/2015 Itchy skin of anus and genitals 11/22/2009 06/12/2015 Dysmetabolic syndrome X 05/25/2006 11/23/19 10 documented as of this encounter (statuses as of 03/12/2023) [address]17-2011 History of Past illness Narrative* Problem Noted Date Diagnosed Date Resolved Date Headache(784.0) 10/23/2010 06/12/2015 Itchy skin of anus and genitals 11/22/2009 06/12/2015 Dysmetabolic syndrome X 05/25/200611/04 documented as of this encounter (statuses as of 04/26/2023) [address]17-2011 History of Past illness Narrative* Problem Noted Date Diagnosed Date Resolved Date Headache(784.0) 10/23/2010 06/12/2015 Itchy skin of anus and genitals 11/22/2009 06/12/2015 Dysmetabolic syndrome X 05/25/200611/04 documented as of this encounter (statuses as of 06/12/2023) [address]17-2011 History of Past illness Narrative* Problem Noted Date Diagnosed Date Resolved Date Headache(784.0) 10/23/2010 06/12/2015 Itchy skin of anus and genitals 11/22/2009 06/12/2015 Dysmetabolic syndrome X 05/25/200611/04 documented as of this encounter (statuses as of 06/15/2023) [address]17-2011 History of Past illness Narrative* Problem Noted Date Diagnosed Date Resolved Date Headache(784.0) 10/23/2010 06/12/2015 Itchy skin of anus and genitals 11/22/2009 06/12/2015 Dysmetabolic syndrome X 05/25/200611/04 documented as of this encounter (statuses as of 06/16/2023) [address]17-2011 History of Past illness Narrative* Problem Noted Date Diagnosed Date Resolved Date Headache(784.0) 10/23/2010 06/12/2015 Itchy skin of anus and genitals 11/22/2009 06/12/2015 Dysmetabolic syndrome X 05/25/200611/04 documented as of this encounter (statuses as of 06/21/2023) [facility]02[facility]17-2011 History of Past illness Narrative* Problem Noted Date Diagnosed Date Resolved Date Headache(784.0) 10/23/2010 06/12/2015 Itchy skin of anus and genitals 11/22/2009 06/12/2015 Dysmetabolic syndrome X 05/25/200611/04 documented as of this encounter (statuses as of 07/13/2023) [facility] Diagnosis Type 2 diabetes mellitus with microalbuminuria, without long-term current use of insulin ([facility]LY [facility])- Primary Essential hypertension Unspecified essential hypertension documented [facility] this encounter [facility] Diagnosis Medicare annual wellness visit, subsequent- Primary Routine general medical examination at a health care facility Abnormal lung function test Nonspecific abnormal results of pulmonary system function study Cough Morbid obesity with BMI of 40.0-44.9, adult (HCC) Morbid obesity Type 2 diabetes mellitus with microalbuminuria, without long-term current use of insulin (FORMERLY [facility]) Hypothyroidism, unspecified type Essential hypertension Unspecified essential hypertension Mixed hyperlipidemia Cough variant asthma documented [facility] encounter [facility] Diagnosis Encounter for screening mammogram for breast cancer documented [facility] Diagnosis Plantar fasciitis- Primary Plantar fascial fibromatosis Calcaneal spur of right foot Calcaneal spur documented in this encounter [facility] Diagnosis Calcaneal spur of right foot Calcaneal spur Plantar fasciitis Plantar fascial fibromatosis documented [facility]* Diagnosis Type 2 diabetes mellitus with microalbuminuria, without long-term current use of insulin (HCC)- Primary Essential hypertension Unspecified essential hypertension Colon cancer screening Special screening for malignant neoplasms, colon documented [facility] this [facility]* Diagnosis Essential hypertension- Primary Unspecified essential hypertension Hypothyroidism, unspecified type Type 2 diabetes mellitus with microalbuminuria, without long-term current use of insulin (HCC) Stage 3a chronic kidney disease (HCC) documented [facility]* Diagnosis Essential hypertension- Primary Unspecified essential hypertension Mixed hyperlipidemia Type 2 diabetes mellitus with microalbuminuria, without long-term current use of insulin (HCC) Stage 3a chronic kidney disease (HCC) Right knee pain, unspecified chronicity Hypothyroidism, unspecified type documented in this encounter [facility] for referral (narrative)* Diagnostic Procedure Only (Routine) - Closed Specialty Diagnoses / Procedures Referred By Armani t Referred To Contact [facility] Diagnoses Encounter for screening mammogram for breast cancer Procedures ALONSO SCREENING W SHARDA SCREENING BREAST DGTL SHARDA UNI/BILAT ADD ON SCREENING MAMMOGRAPHY BI 2-VIEW BREAST INC CAD [facility] [place] [address] [place] [address] [facility] [address] [place] [address] Referral ID Status Reason Start Date Expiration Date V isits Requested Visits Authorized [id number] Closed Auto-Generate d Referral 08/12/2021 09/11/2022 1 1 [facility] for visit Narrative* Diagnostic Procedure Only (Routine) - Closed Specialty Diagnoses / Procedures Referred By Armani werner Referred To Contact [facility] Diagnoses Encounter for screening mammogram for breast cancer Procedures ALONSO SCREENING W SHARDA SCREENING BREAST DGTL SHARDA UNI/BILAT ADD ON SCREENING MAMMOGRAPHY BI 2-VIEW BREAST INC CAD [facility] [place] [address] [place] [address] [facility] [address] [place] [address] Referral ID Status Reason Start Date Expiration Date V isits Requested Visits Authorized [id number] Closed Auto-Generate d Referral 08/12/2021 09/11/2022 1 1 [facility] Summary Purpose Family History No Family History Records FoundNo Family History Records FoundNo Family History Records Found Advance Directives No Advanced Directives Records FoundNo Advanced Directives Records FoundNo Advanced Directives Records Found Reason for Referral Specialty Diagnoses / Procedures Referred By Armani werner Referred To Contact Pulmonary and Critical Care Medicine Diagnoses Abnormal lung function test Cough Procedures CONSULT TO PULM/CRITICAL CARE OFFICE/OUTPATIENT [facility] 60-74 MINUTES Mari Arora MD [address] [place] [address] Referral ID Status Reason Start Date Expiration Date Visits Requested Visits Authorized [id number] Authorized PCP Requested Referral 01/06/2022 01/06/2023 1 1 Specialty Diagnoses / Procedures Referred By Contac t Referred To Contact [facility] Diagnoses Abnormal lung function test Cough Procedures METHACHOLINE CHALLENGE INHLJ BRNCL CHALLENGE TSTG W/HISTAM/METHACHOL Mari Arora MD [address] [place] [address] [facility] [address] [place] [address] Referral ID Status Reason Start Date Expiration Date Visits Requested Visits Authorized [id number] Pending Review Auto-Generat ed Referral 01/06/2022 02/05/2023 1 1 Specialty Diagnoses / Procedures Referred By Contac t Referred To Contact Podiatry Diagnoses Calcaneal spur of right foot Plantar fasciitis Procedures CONSULT TO PODIATRY OFFICE/OUTPATIENT [facility] 60-74 MINUTES Mari Arora MD [address] [place] [address] Referral ID Status Reason Start Date Expiration Date Visits Requested Visits Authorized [id number] Authorized PCP Requested Referral 02/18/2022 02/18/2023 1 1 Specialty Diagnoses / Procedures Referred By Contac t Referred To Contact Lindsey Hathaway APRN.CNP [address] [place] [address] Referral ID Status Reason Start Date Expiration Date Visits Re quested Visits Authorized [id number] Closed 1 1 Additional Source Comments INFORMATION SOURCE (unrecogn ized section and content) DATE CREATED AUTHOR AUTHOR'S ORGANIZ ATION 02/25/2018 Amarjit Baker [facility] DATE CREATED AUTHOR AUTHOR'S ORGANIZ ATION 06/16/2023 [facility] Source Comments (unrecognize d section and content) In the event this informatio n is protected by the Federal Confidentiality of Alcohol and Drug Abuse Patient Records regulations: The Federal rules restrict any use of the information to criminally investigate or prosecute any alcohol or drug abuse patient.[facility] the event this information is protected by the Federal Confidentiality of Alcohol and Drug Abuse Patient Records regulations: The Federal rules restrict any use of the information to criminally investigate or prosecute any alcohol or drug abuse patient.[facility] the event this information is protected by the Federal Confidentiality of Alcohol and Drug Abuse Patient Records regulations: The Federal rules restrict any use of the information to criminally investigate or prosecute any alcohol or drug abuse patient.[facility] the event this information is protected by the Federal Confidentiality of Alcohol and Drug Abuse Patient Records regulations: The Federal rules restrict any use of the information to criminally investigate or prosecute any alcohol or drug abuse patient.[facility] the event this information is protected by the Federal Confidentiality of Alcohol and Drug Abuse Patient Records regulations: The Federal rules restrict any use of the information to criminally investigate or prosecute any alcohol or drug abuse patient.[facility] the event this information is protected by the Federal Confidentiality of Alcohol and Drug Abuse Patient Records regulations: The Federal rules restrict any use of the information to criminally investigate or prosecute any alcohol or drug abuse patient.[facility] the event this information is protected by the Federal Confidentiality of Alcohol and Drug Abuse Patient Records regulations: The Federal rules restrict any use of the information to criminally investigate or prosecute any alcohol or drug abuse patient.[facility] Hospital[facility] the event this information is protected by the Federal Confidentiality of Alcohol and Drug Abuse Patient Records regulations: The Federal rules restrict any use of the information to criminally investigate or prosecute any alcohol or drug abuse patient.[facility] Hospital[facility] the event this information is protected by the Federal Confidentiality of Alcohol and Drug Abuse Patient Records regulations: The Federal rules restrict any use of the information to criminally investigate or prosecute any alcohol or drug abuse patient.[facility] Hospital[facility] the event this information is protected by the Federal Confidentiality of Alcohol and Drug Abuse Patient Records regulations: The Federal rules restrict any use of the information to criminally investigate or prosecute any alcohol or drug abuse patient.[facility] Hospital[facility] the event this information is protected by the Federal Confidentiality of Alcohol and Drug Abuse Patient Records regulations: The Federal rules restrict any use of the information to criminally investigate or prosecute any alcohol or drug abuse patient.[facility] Hospital[facility] the event this information is protected by the Federal Confidentiality of Alcohol and Drug Abuse Patient Records regulations: The Federal rules restrict any use of the information to criminally investigate or prosecute any alcohol or drug abuse patient.[facility] Hospital[facility] the event this information is protected by the Federal Confidentiality of Alcohol and Drug Abuse Patient Records regulations: The Federal rules restrict any use of the information to criminally investigate or prosecute any alcohol or drug abuse patient.[facility] HospitalIn the event this information is protected by the Federal Confidentiality of Alcohol and Drug Abuse Patient Records regulations: The Federal rules restrict any use of the information to criminally investigate or prosecute any alcohol or drug abuse patient.[facility] Hospital[facility] the event this information is protected by the Federal Confidentiality of Alcohol and Drug Abuse Patient Records regulations: The Federal rules restrict any use of the information to criminally investigate or prosecute any alcohol or drug abuse patient.[facility] HospitalIn the event this information is protected by the Federal Confidentiality of Alcohol and Drug Abuse Patient Records regulations: The Federal rules restrict any use of the information to criminally investigate or prosecute any alcohol or drug abuse patient.[facility] Hospital[facility] the event this information is protected by the Federal Confidentiality of Alcohol and Drug Abuse Patient Records regulations: The Federal rules restrict any use of the information to criminally investigate or prosecute any alcohol or drug abuse patient.[facility] HospitalIn the event this information is protected by the Federal Confidentiality of Alcohol and Drug Abuse Patient Records regulations: The Federal rules restrict any use of the information to criminally investigate or prosecute any alcohol or drug abuse patient.[facility] HospitalIn the event this information is protected by the Federal Confidentiality of Alcohol and Drug Abuse Patient Records regulations: The Federal rules restrict any use of the information to criminally investigate or prosecute any alcohol or drug abuse patient.[facility] HospitalIn the event this information is protected by the Federal Confidentiality of Alcohol and Drug Abuse Patient Records regulations: The Federal rules restrict any use of the information to criminally investigate or prosecute any alcohol or drug abuse patient.[facility] HospitalIn the event this information is protected by the Federal Confidentiality of Alcohol and Drug Abuse Patient Records regulations: The Federal rules restrict any use of the information to criminally investigate or prosecute any alcohol or drug abuse patient.[facility] HospitalIn the event this information is protected by the Federal Confidentiality of Alcohol and Drug Abuse Patient Records regulations: The Federal rules restrict any use of the information to criminally investigate or prosecute any alcohol or drug abuse patient.[facility] HospitalIn the event this information is protected by the Federal Confidentiality of Alcohol and Drug Abuse Patient Records regulations: The Federal rules restrict any use of the information to criminally investigate or prosecute any alcohol or drug abuse patient.[facility] HospitalIn the event this information is protected by the Federal Confidentiality of Alcohol and Drug Abuse Patient Records regulations: The Federal rules restrict any use of the information to criminally investigate or prosecute any alcohol or drug abuse patient.[facility] Reason for Visit (unrecogniz ed section and content) Reason Comments Prescription Refills Reason Comments F/U HTN 6 Month Reason Onset Date Comments Refill Request 02/10/2022 Reason Comments Referral Request Reason Comments Orders Reason Comments Refill Request Reason Comments New Pain Specialty Diagnoses / Procedures Referred By Armani werner Referred To Contact Podiatry Diagnoses Calcaneal spur of right foot Plantar fasciitis Procedures CONSULT TO PODIATRY OFFICE/OUTPATIENT NEW HIGH MDM 60-74 MINUTES Mari Arora MD [address] [place] [address] Referral ID Status Reason Start Date Expiration Date V isits Requested Visits Authorized [id number] Closed PCP Requested Referral 02/18/2022 02/18/2023 1 1 Reason Onset Date Comments Refill Request 11/16/2022 Reason Comments Recheck HTN follow up, revie w labs Reason Comments Results Reason Comments Recheck 3 month follow up Reason Comments patient update on blood sugars Reason Comments Recheck 3 month follow up Reason Onset Date Comments Refill Request 06/15/2023 Reason Comments Patient Update continued right knee pain Reason Onset Date Comments Refill Request 07/12/2023 Care Teams (unrecognized sec tion and content) Vehicle Window Tinter Relationship Specialty Start Date End Date Mari Arora MD [address] [place] [address] PCP - General Internal Medicine 08[facility]06[facility] [address] [place] [address] Pharmacist Pharmacy 06/01/19 Vehicle Window Tinter Relationship Specialty Start Date End Date Mari Arora MD [address] [place] [address] PCP - General Internal Medicine 08/06/17 [facility] [address] [place] [address] Pharmacist Pharmacy 06/01/19 Vehicle Window Tinter Relationship Specialty Start Date End Date Mari Arora MD [address] [place] [address] PCP - General Internal Medicine 08/06/17 Triny Vazquez, [facility] [address] [place] [address] Pharmacist Pharmacy 06/01/19 Vehicle Window Tinter Relationship Specialty Start Date End Date Mari Arora MD [address] [place] [address] PCP - General Internal Medicine 08/06/17 [place], [facility] [address] [place] [address] Pharmacist Pharmacy 06/01/19 Vehicle Window Tinter Relationship Specialty Start Date End Date Mari Arora MD [address] [place] [address] PCP - General Internal Medicine 08/06/17 Triny Vazquez, [facility] [address] [place] [address] Pharmacist Pharmacy 06/01/19 Vehicle Window Tinter Relationship Specialty Start Date End Date Mari Arora MD [address] [place] [address] PCP - General Internal Medicine 08/06/17 Triny Vazquez, [facility] [address] [place] [address] Pharmacist Pharmacy 06/01/19 Vehicle Window Tinter Relationship Specialty Start Date End Date Mari Arora MD [address] [place] [address] PCP - General Internal Medicine 08/06/17 Triny Vazquez, [facility] [address] [place] [address] Pharmacist Pharmacy 06/01/19 Vehicle Window Tinter Relationship Specialty Start Date End Date Mari Arora MD [address] [place] [address] PCP - General Internal Medicine 08/06/17 Triny Vazquez, [facility] [address] [place] [address] Pharmacist Pharmacy 06/01/19 Vehicle Window Tinter Relationship Specialty Start Date End Date Mari Arora MD [address] [place] [address] PCP - General Internal Medicine 08/06/17 Triny Vazquez, [facility] [address] [place] [address] Pharmacist Pharmacy 06/01/19 Vehicle Window Tinter Relationship Specialty Start Date End Date Mari Arora MD [address] [place] [address] PCP - General Internal Medicine 08/06/17 Triny Vazquez, [facility] [address] [place] [address] Pharmacist Pharmacy 06/01/19 Vehicle Window Tinter Relationship Specialty Start Date End Date Mari Arora MD [address] [place] [address] PCP - General Internal Medicine 08/06/17 Triny Vazquez, [facility] [address] [place] [address] Pharmacist Pharmacy 06/01/19 Vehicle Window Tinter Relationship Specialty Start Date End Date Mari Arora MD [address] [place] [address] PCP - General Internal Medicine 08/06/17 Triny Vazquez, [facility] [address] [place] [address] Pharmacist Pharmacy 06/01/19 Vehicle Window Tinter Relationship Specialty Start Date End Date Mari Arora MD [address] [place] [address] PCP - General Internal Medicine 08/06/17 Triny Vazquez, [facility] [address] [place] [address] Pharmacist Pharmacy 06/01/19 Vehicle Window Tinter Relationship Specialty Start Date End Date Mari Arora MD [address] [place] [address] PCP - General Internal Medicine 08/06/17 Triny Vazquez, [facility] [address] [place] [address] Pharmacist Pharmacy 06/01/19 Vehicle Window Tinter Relationship Specialty Start Date End Date Mari Arora MD [address] [place] [address] PCP - General Internal Medicine 08/06/17 Triny Vazquez, [facility] [address] [place] [address] Pharmacist Pharmacy 06/01/19 Vehicle Window Tinter Relationship Specialty Start Date End Date Mari Arora MD [address] [place] [address] PCP - General Internal Medicine 08/06/17 Triny Vazquez, [facility] [address] [place] [address] Pharmacist Pharmacy 06/01/19 Vehicle Window Tinter Relationship Specialty Start Date End Date Mari Arora MD [address] [place] [address] PCP - General Internal Medicine 08/06/17 [place], Triny, [facility] [address] [place], [place] [address] Pharmacist Pharmacy 06/01/19 Vehicle Window Tinter Relationship Specialty Start Date End Date Mari Arora MD [address] [place], [place] [id number] PCP - General Internal Medicine 08/06/17 [place], [facility] [address] [place] [address] Pharmacist Pharmacy 06/01/19 FOR RECORDS PERTAINING TO PATIENTS WHO ARE OR HAVE BEEN ENROLLED IN A CHEMICAL DEPENDENCY/SUBSTANCEABUSE PROGRAM, SOME INFORMATION MAY BE OMITTED. This clinical summary was aggregated from multiple sources. Caution should be exercised in using it in the provision of clinical care. This summary normalizes information from multiple sources, and as a consequence, information in this document may materially change the coding, format and clinical context of patient data. In addition, data may be omitted in some cases. CLINICAL DECISIONS SHOULD BE BASED ON THE PRIMARY CLINICAL RECORDS. [employer] provides no warranty or guarantee of the accuracy or completeness of information in this document.
--- NOTE | 2023-09-24 12:12 | EKG12_ITS ---
Test Reason : Blood Pressure : / mmHG Vent. Rate : 094 BPM Atrial Rate : 094 BPM P-R Int : 196 ms QRS Dur : 078 ms QT Int : 344 ms P-R-T Axes : 041 084 045 degrees QTc Int : 430 ms Normal sinus rhythm with sinus arrhythmia Low voltage QRS Borderline ECG Confirmed by DAVID SEAY, ROLDAN ([id number]), newspaper managing editor ERNESTINA PACHECO ([id number]) on 09/24/2023 1:31:49 PM Referred By: Yassine Santiago Confirmed By:ROLDAN HERNANDEZ MD
[2023-09-24 12:56] LABS: Absolute Lymphocyte Count 1.81 X10^3/uL (0.83-4.51); Basophil# 0.04 X10^3/uL; Basophil% 0.5 % (0-1); Eosinophil# 0.19 X10^3/uL; Eosinophils% 2.5 % (0-5); Hematocrit 43.8 % (37-47); Hemoglobin 14.1 g/dL (12.0-15.0); Lymphocyte # 1.81 X10^3/ul (0.83-4.51); Mean Corp Hgb Conc 32.2 g/dL (32-36); Mean Corpuscular Hgb 29.6 pg (27.0-32.0); Mean Corpuscular Volume 91.8 fL (81-99); Mean Platelet Vol. 9.9 fl (6.2-12.0); Monocyte# 0.51 X10^3/uL; Monocyte% 6.8 % (0-10); NRBC Flagged by Analyzer 0 % (0-5); Neutrophil # 4.96 X10^3/uL (2.7-7.7); Neutrophil % 65.9 % (47-70); Platelet Count 281 K/mm3 (150-450); RBC Distribution Width SD 47.7 fl (35.1-43.9); Red Blood Count 4.77 M/mm3 (4.2-5.4); White Blood Count 7.5 K/mm3 (4.4-11.0)
[2023-09-24 13:18] LABS: Hemoglobin A1c 6.8 % (3.8-5.6)
[2023-09-24 14:01] LABS: Anion Gap 4 (5-15); BUN 13 mg/dL (7-18); BUN/Creat Ratio 11.7 RATIO (10-20); Chloride 108 mmol/L (98-107); Creatinine, Serum 1.11 mg/dL (0.55-1.02); EST Glomerular Filtration Rate 51 mL/min (>60); Est Glom Filt Rate - Afr Amer 61 mL/min (>60); Glucose 159 mg/dL (74-106); Potassium 4.2 mmol/L (3.5-5.1); Sodium Level 139 mmol/L (136-145)
== END | disposition home or self-care (01) ==
LOC: PSN 12:08
PROVIDERS: PCP Internal Medicine; Referring Provider Orthopaedic Surgery; Visit Provider Orthopaedic Surgery
DX: Z01.818 Encounter for other preprocedural examination (principal); E11.9 Type 2 diabetes mellitus without complications; M17.11 Unilateral primary osteoarthritis, right knee; I10 Essential (primary) hypertension; E78.00 Pure hypercholesterolemia, unspecified; J45.909 Unspecified asthma, uncomplicated; Z01.810 Encounter for preprocedural cardiovascular examination; Z01.811 Encounter for preprocedural respiratory examination
CPT/HCPCS: 36415; 80048; 83036; 85025; 93005

== ENCOUNTER → 2023-10-08 | Outpatient (CLI) | payer MEDICARE, OTHER, SELFPAY ==
--- NOTE | 2023-10-08 11:15 | RAD_ITS ---
STUDY: X-RAY CHEST REASON FOR EXAM: Female, 78 years old. PRE OP TECHNIQUE: PA and lateral views of the chest. COMPARISON: None. FINDINGS: The lungs are clear and expanded. There is no demonstrated pleural abnormality. Normal size heart. Normal mediastinum and [place]. Normal visualized pulmonary arteries. Normal visualized aortic arch and descending thoracic aorta. Normal visualized thoracic spine. Normal visualized ribs, clavicles, and shoulders. There is no demonstrated abnormality of the visualized soft tissue structures of the upper abdomen. RAD/Chest PA and Lateral IMPRESSION: Normal x-ray examination of the chest. Electronically Signed: Kali Palacio MD at 17:02 [facility] ,
== END | disposition home or self-care (01) ==
PROVIDERS: PCP Internal Medicine; Referring Provider Orthopaedic Surgery; Visit Provider Orthopaedic Surgery
DX: Z01.818 Encounter for other preprocedural examination (principal); E11.9 Type 2 diabetes mellitus without complications; M17.11 Unilateral primary osteoarthritis, right knee; Z01.810 Encounter for preprocedural cardiovascular examination; Z01.811 Encounter for preprocedural respiratory examination; I10 Essential (primary) hypertension; E78.00 Pure hypercholesterolemia, unspecified; J45.909 Unspecified asthma, uncomplicated
CPT/HCPCS: 71046

== ENCOUNTER → 2023-10-15 | Outpatient (CLI) | payer MEDICARE, OTHER, SELFPAY ==
--- NOTE | 2023-10-15 | KNEE_PTH ---
PATHOLOGY RESULTS PATIENT: GYPSY SEGOVIA LOC: [facility] U#:[id number] AGE/SX: 78/F ROOM: RE10/15/[address]: Dr. Yassine Santiago MD : 1945 BED: DIS: 10/15/2023 SPEC #: [id number] RECD: 10/18/23 07:34 STATUS: MARTIN REQ #: [id number] KERI: 10/15/23 00:[address]: Yassine Santiago DEPT: SURGICAL PATHOLOGY RECD BY: Lanette Snyder ENTERED: 10/18/23 07:34 SP TYPE: TOTAL KNEE OTHR DR: Dr. Mari Arora MD [facility] Tissues: Knee, NOS Procedures: Decalcification bone/plaque Surgery Specimen Level IV HEADER OPERATION: Right total knee arthroplasty PRE-OP DIAGNOSIS: Osteoarthritis right knee TISSUE SUBMITTED: Bone and tissue right knee MICROSCOPIC DIAGNOSIS Bone and soft tissue, right knee, total knee replacement/resection: Pieces of bone with degenerative osteoarthritic changes. KELLEE:vickie 10/21/2023 MICROSCOPIC DESCRIPTION Slides are reviewed. GROSS DESCRIPTION Received is one container designated bone and soft tissue right knee. The specimen consists of multiple fragments of mejía-yellow bone measuring in aggregate 7.0 x 9.0 x 2.5 cm. No soft tissue is identified. A number of bony fragments contain articular surfaces consistent with tibial plateau and femoral condyle and displaying prominent osteophyte formation, eburnation and bone erosion. Chute Puller sections are submitted in one cassette after decalcification. / KELLEE:vickie 10/18/2023 TC:5 CPT: 99457, 74861
--- OUTSIDE RECORDS SUMMARY | 2023-10-15 17:19 | XMS RPT_ITS | CCD ---
Author Name Unknown Address [address] [place] [address] Organization [facility] Care Team Providers Care Hunting Sales Associate Name Role Phone ADRY MALDONADO E Unavailable Unavailable GANTA, MARI Unavailable Unavailable ADRY MALDONADO Unavailable Unavailable IMCA Unavailable Unavailable [facility] Unavailable Unavailable ADRY MALDONADO Unavailable Unavailable ADRY MALDONADO Unavailable Unavailable IMCA Unavailable Unavailable Mari Arora MD Primary Care Provider [facility] Unavailable Mari Arora MD Primary Care Provider [facility] Unavailable Mari Arora MD Primary Care Provider [facility] Unavailable Mari Arora MD Primary Care Provider OLDER, MONSERRAT Referring Unavailable GANTA, MARI Primary Care Unavailable CARLOS HERNANDEZ Referring Unavailable GANTA, MARI Primary Care Unavailable GANTA, MARI Primary Care Unavailable OLDER, MONSERRAT Attending Unavailable GANTA, MARI Primary Care Unavailable OLDER, MONSERRAT Referring Unavailable GANTA, MARI Primary Care Unavailable OLDER, MONSERRAT Attending Unavailable GANTA, MARI Primary Care Unavailable GENESIS MAJOR Attending Unavailable AYANNA BELTRAN Referring Unavailable GANTA, MARI Primary Care Unavailable OLDER, MONSERRAT Attending Unavailable GANTA, MARI Primary Care Unavailable OLDER, MONSERRAT Referring Unavailable GANTA, MARI Primary Care Unavailable OLDER, MONSERRAT Attending Unavailable GANTA, MARI Primary Care Unavailable Allergies Allergy Classification Reported Allergen(s) Allergy Type Date of Onset Reaction(s) Facility (20 sources) hydrALAZINE; Translations: [HYDRALAZINE] Drug Allergy 12-22-19 14 Rash [facility] Other [place] Rep[facility] (20 sources) hydroCHLOROthiazide / lisinopril; Translations: [LISINOPRIL-HYDROCHLOR OTHIAZIDE] Drug Allergy 03-10-20 06 [facility] Repository (20 sources) magnesium; Translations: [MAGNESIUM] Drug Allergy 12-22-19 14 [facility] Repository (3 sources) OTHER; Translations: [OTHER] Propensity to adverse reactions (disorder) 03-19-20 [facility] Repository (20 sources) PRINIZIDE [Other] Propensity to adverse reactions 03-19-20 [facility] Work Phone: (15 sources) predniSONE; Translations: [PREDNISONE] Drug Allergy 12-31-19 17 Itching [facility] Medications Current Medications Medication Drug Class(es) Dates [...] Drug Class(es) Dates Sig (Normalized) Sig (Original) [id number] 200 actuat albuterol 0.09 mg/actuat metered dose [...] [Stage 3a chronic kidney disease (HCC)] Onset: 06-11-2023 Diabetes mellitus with complications (20 sources) Type [...] (1 source) Cough; Translations: [Cough] Episodic Other nutritional; endocrine; and metabolic disorders [...] left upper extremity] Onset: 01-20-2023 Episodic Other lower respiratory disease (1 source) Other forms of dyspnea; Translations: [Other forms of dyspnea] Onset: 10-27-2017 Episodic Other lower respiratory disease (1 source) Wheezing; Translations: [Wheezing] Onset: 10-09-2022 Episodic Other lower respiratory disease (1 source) Chronic cough; Translations: [Chronic cough] Onset: 10-09-2022 Episodic Other non-traumatic joint disorders (2 sources) Pain in right knee; Translations: [Pain in joint, lower leg] Onset: 06-11-2023 06-11-2023 Episodic Other screening for suspected conditions (not mental disorders or infectious disease) (4 sources) Pulmonary function studies abnormal; Translations: [Abnormal results of pulmonary function studies] Onset: 12-10-2022 Episodic Pulmonary heart disease (1 source) Other pulmonary embolism without acute cor pulmonale; Translations: [Other pulmonary embolism without acute cor pulmonale] Onset: 10-27-2017 Episodic Results Test Name Value Interpretation Reference Range Facil ity Vital Signs Date Time Vital Sign Value Performing Clinician Lee small 06-11-2023 13:43-0400 Diastolic blood pressure 76 mm[Hg] Monserrat Older HAIR DRESSER.POT LINING SUPERVISOR Work Phone: [facility] 06-11-2023 13:43-0400 Systolic blood pressure 143 mm[Hg] Monserrat Older HAIR DRESSER.POT LINING SUPERVISOR Work Phone: [facility] 06-11-2023 13:08-0400 Body weight 88.45 kg Monserrat Older HAIR DRESSER.POT LINING SUPERVISOR Work Phone: [facility] 06-11-2023 13:08-0400 Heart rate 92 /min Monserrat Older HAIR DRESSER.POT LINING SUPERVISOR Work Phone: [facility] 06-11-2023 13:08-0400 Respiratory rate 16 /min Monserrat Older HAIR DRESSER.POT LINING SUPERVISOR Work Phone: [facility] 06-11-2023 13:08-0400 SaO2% (BldA) [Mass fraction] 99 % Monserrat Older HAIR DRESSER.POT LINING SUPERVISOR Work Phone: [facility] 03-11-2023 14:04-0400 Diastolic blood pressure 72 mm[Hg] Monserrat Older HAIR DRESSER.POT LINING SUPERVISOR Work Phone: [facility] 03-11-2023 14:04-0400 Systolic blood pressure 130 mm[Hg] Monserrat Older HAIR DRESSER.POT LINING SUPERVISOR Work Phone: [facility] 03-11-2023 13:29-0400 Body weight 89.36 kg Monserrat Older HAIR DRESSER.POT LINING SUPERVISOR Work Phone: [facility] 03-11-2023 13:29-0400 Heart rate 80 /min Monserrat Older HAIR DRESSER.POT LINING SUPERVISOR Work Phone: [facility] 03-11-2023 13:29-0400 Respiratory rate 16 /min Monserrat Older HAIR DRESSER.POT LINING SUPERVISOR Work Phone: [facility] 12-10-2022 12:41-0400 Body weight 90.27 kg Monserrat Older HAIR DRESSER.POT LINING SUPERVISOR Work Phone: [facility] 12-10-2022 12:41-0400 Diastolic blood pressure 78 mm[Hg] Monserrat Older HAIR DRESSER.POT LINING SUPERVISOR Work Phone: [facility] 12-10-2022 12:41-0400 Heart rate 68 /min Monserrat Older HAIR DRESSER.POT LINING SUPERVISOR Work Phone: [facility] 12-10-2022 12:41-0400 Respiratory rate 16 /min Monserart Older HAIR DRESSER.POT LINING SUPERVISOR Work Phone: [facility] 12-10-2022 12:41-0400 Systolic blood pressure 148 mm[Hg] Monserrat Older HAIR DRESSER.POT LINING SUPERVISOR Work Phone: [facility] 01-06-2022 13:44-0400 Diastolic blood pressure 68 mm[Hg] Mari Arora MD Work Phone: [facility] 01-06-2022 13:44-0400 Systolic blood pressure 118 mm[Hg] Mari Arora MD Work Phone: [facility] 01-06-2022 12:47-0400 Body temperature 96.6 [degF] Mari Arora MD Work Phone: [facility] 01-06-2022 12:47-0400 Body weight 93.53 kg Mari Arora MD Work Phone: [facility] 01-06-2022 12:47-0400 Heart rate 80 /min Mari Arora MD Work Phone: [facility] 01-06-2022 12:47-0400 Respiratory rate 22 /min Mari Arora MD Work Phone: [facility] 01-06-2022 12:47-0400 SaO2% (BldA) [Mass fraction] 94 % Mari rAora MD Work Phone: [facility] Encounters Encounter Date Encounter Type Care Provider Facility Start: 09-27-2023 End: 09-27-2023 [facility] Start: 07-12-2023 Refill Monserrat Hathaway HAIR DRESSER .POT LINING SUPERVISOR Work Phone: Internal [facility] Procedures Date Procedure Procedure Detail Performing Clinician Start: 02-12-2022 ALONSO SCREENING W SHARDA Winston [facility] Major HAIR DRESSER.MUFFLER INSTALLER Work Phone: Start: 02-12-2022 Mammography Screen Wst r Start: 08-12-2021 Adult depression scr eening assessment Triny Vazquez [facility] Work Phone: Start: 02-06-2021 Mammography Triny Raymondkarlos corona [facility] Work Phone: Start: 10-06-2012 Colonoscopy Trinyjoselin Andradekarlos corona [facility] Work Phone: Plan of Treatment Date Care Activity Detail Author Start: 05-15-2031 Urine microalbumin profile [facility] Start: 12-15-2025 COLOGUARD (FIT-DNA) COLOGUARD (FIT-D NA) [facility] Start: 06-11-2024 Annual PCP Team Weight Count Operator max Disease Visit Annual PCP Team Chronic Disease Visit [facility] Start: 06-11-2024 Hepatitis B Vaccine (1 of 3 - Risk 3-dose series) Hepatitis B Vaccine (1 of 3 - Risk 3-dose series) [facility] Immunizations Immunization Date Immunization Notes Care Provider Francia alexander 06-23-2023 COVID-19 vaccine, ag e 12+ yr, season (MODERNA) Monserrat Hathaway HAIR DRESSER.POT LINING SUPERVISOR Work Phone: [facility] 06-02-2023 influenza, high dose seasonal, preservative-free Monserrat Older HAIR DRESSER.POT LINING SUPERVISOR Work Phone: [facility] Work Phone: 05-26-2022 COVID-19 booster vaccine, age 12+ yr, bivalent (PFIZER-BIONTECH) Mari Arora MD Work Phone: [facility] Work Phone: 05-26-2022 influenza, high dose seasonal, preservative-free Mari Arora MD Work Phone: [facility] Work Phone: 07-10-2021 COVID-19 vaccine, ag e 12+ yr (PFIZER-BIONTECH - PURPLE TOP) [facility] 05-15-2021 influenza, high dose seasonal, preservative-free [facility] 05-15-2021 tetanus toxoid, redu donis diphtheria toxoid, and acellular pertussis vaccine, adsorbed [facility] Work [facility]: [facility] 12-05-2020 COVID-19 vaccine, fu ll dose (MODERNA) Triny [facility] Work Phone: [facility] Work Phone: 11-07-2020 COVID-19 vaccine, fu ll dose (MODERNA) [facility] Work [facility] Work Phone: 06-20-2020 influenza, seasonal, injectable Trinyjoselin Vazquez [facility] Work Phone: [facility] 02-24-2019 zoster vaccine recombinant Trinyjoselin Andradego [facility] Work Phone: [facility] 12-18-2018 zoster vaccine recombinant Trinyjoselin Vazquez [facility] Work Phone: [facility] 05-30-2018 influenza, high dose seasonal, preservative-free Trinyjoselin Andradego [facility] Work Phone: [facility] 06-06-2016 influenza, high dose seasonal, preservative-free Triny Vazquez [facility] Work Phone: [facility] 06-12-2015 influenza, high dose seasonal, preservative-free Triny Vazquez [facility] Work Phone: [facility] 06-12-2015 pneumococcal conjuga te vaccine, 13 valent Triny Vazquez [facility] Work Phone: [facility] 02-28-2015 pneumococcal polysaccharide vaccine, 23 valent Triny Vazquez [facility] Work Phone: [facility] 05-24-2014 zoster vaccine, live Triny richmond [facility] Work Phone: [facility] 06-05-2013 influenza virus vacc ine, unspecified formulation Triny Vazquez [facility] Work Phone: [facility] 05-26-2012 influenza virus vacc ine, unspecified formulation [facility] Work Phone: 05-29-2011 influenza virus vacc ine, unspecified formulation [facility] Work [facility]: [facility] Work Phone: 07-12-2009 influenza virus vacc ine, unspecified formulation Triny Vazquez [facility] Work Phone: [facility] Work Phone: 06-07-2008 influenza virus vacc ine, unspecified formulation Triny Vazquez [facility] Work Phone: [facility] Work Phone: 06-07-2008 pneumococcal polysaccharide vaccine, 23 valent Triny Vazquez [facility] Work Phone: [facility] Work Phone: 10-05-2006 tetanus toxoid, redu donis diphtheria toxoid, and acellular pertussis vaccine, adsorbed Trinyjoselin Vazquez [facility] Work Phone: [facility] Work Phone: 07-15-2006 influenza virus vacc ine, unspecified formulation [facility] Work [facility]: [facility] Work Phone: Payers Date Payer Category Payer [employer] ( and others) [id number] 2023 Unknown FOR LIFE [id number] 2023-Present [phone] [address] [place] [address] Indemnity [id number] 2012 Medicare MEDICARE MEDICAR E A AND B [id number] 2012-Present [phone] [address] [address] [place] [address] Medicare [id number] 2012 Medicare MEDICARE MEDICAR E A AND B [id number] 2012-Present [phone] [address] [address] [place] [address] Medicare [id number] 2012 Medicare [id number] 1994 Unknown FOR LIFE [id number] 1994-Present [phone] [address] [place] [address] Indemnity [id number] Medicare [id number] Social History Date Type Detail Facility Tobacco smoking stat us [facility] Never smoked tobacco [facility] Work Phone: Start: 10-23-2021 End: 03-11-2023 Alcohol intake Current non-drinker of alcohol (finding) [facility] Start: 1945 Sex Assigned At Not on file [facility] Start: 11-04-2021 End: 02-12-2022 Exposure to SARS-CoV-2 (event) Not sure [facility] Start: 12-10-2022 End: 03-11-2023 History of Social function [facility] Work Phone: Start: 12-10-2022 End: 03-11-2023 Tobacco use panel [facility] Work Phone: Adult Depression Screening Assessment 0 [facility] Work Phone: Medical Equipment Procedure Code Equipment Code Equipment Origin al Text Equipment Identifier Dates Start: 01-22-2021 Clinical Notes 10-23-2010 to 09-27-2023 Telephone Encounter - IrinaJessy E - 07/12/2023 12:27 PM ESTTelephone Encounter - Rm JacksonSandy Roshni - 07/12/2023 10:57 AM ESTTelephone Encounter - Hillary Lund LPN - 06/15/2023 3:33 PM EDT Note Date & Type Note Facility 09-27-2023 Note HNO ID: [id number] Author: GENESIS MAJOR APRN.MUFFLER INSTALLER Service: ? Author Type: Nurse Specialist Type: Progress Notes Filed: 09/27/2023 12:49 Note Text: SUBJECTIVE: RSV Vaccine(1 - 1-dose 60+ series) Never done Dilated Retinal Exam due on 08/12/2022 BP Controlled (<130/80) due on 08/12/2022 Advance Directive Discussion due on 09/06/2023 Depression Assessment due on 09/06/2023 VALERIO Echevarria S Elder is a 78 year old female. 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 She has had progressive decrease in function and increased pain in her right knee over the last year. She is scheduled for right total knee replacement with Dr. Ayanna Beltran at [facility] October 15, 2023. She has preoperative visit with the surgical team on October 08, 2023. She had lab work and EKG completed at [facility] prior to today's visit. No preoperative form has been received for this procedure. History of heart disease: no History of stroke: no Chest pain: no Shortness of breath: only with moderate exercise Functional capacity: knee pain limiting activity for about one year, no chest pain or shortness of breath on exertion with usual activities. Able to complete housekeeping without assistance. Prior cardiac testing: Echocardiogram completed 2017 [facility] for shortness of breath. This revealed normal LV size and function and no significant valvular disease. Stress test 2018 [facility], Dr. Gonzalez interpreted this. Completed to evaluate chest pain. No ischemia. Normal ejection fraction. See scanned documents. Restaurant Line Server: Dr Adyr Mullins [facility] 2018. Renal artery Doppler completed at that time showed no evidence of renovascular hypertension. Spirometry at that time showed no obstruction. Moderate restriction noted and attributed to body habitus. ACS NSQIP Surgical Risk Calculator 1. Age Group: 75 - 84 years 2. Sex: female 3. Functional Status: Independent 4. Emergency Case: No 5. ASA Class: Mild systemic disease 6. Steroid use for chronic condition: No 7. Ascites within 30 days prior to surgery: No 8. Systemic Sepsis within 48 hours prior to surgery: None 9. Ventilator Dependent: No 10. Disseminated Cancer: No 11. Diabetes: Oral andTrulicity 12. Hypertension requiring medication: Yes 13. Congestive Heart Failure in 30 days prior to surgery: No 14. Dyspnea: With moderate exertion 15. Current Smoker within 1 Year: No 16. History of COPD: No 17. Dialysis: No 18. Acute Renal Failure: No 19. BMI Class Calculation: Obese HTN: Without report of headache, chest pain, palpitations, dyspnea, peripheral edema, orthopnea, fatigue, and PND. Last 14 Encounter BP Readings: Date: BP: 06/11/2023 143/76[BP Eric[ 03/11/2023 130/72 01/20/2023 142/76 12/10/2022 148/78[Home cuff[ 10/09/2022 142/78 01/06/2022 118/68 10/23/2021 136/69 08/12/2021 140/70 01/22/2021 140/74 11/16/2019 122/61 11/08/2019 132/62 08/24/2019 123/59 07/28/2019 132/62 06/29/2019 125/62 DIABETES MELLITUS: Without report of excessive thirst or increased frequency of urination, chest pain or dyspnea , numbness, tingling or pain in extremities, new or unusual visual symptoms, low sugar/hypoglycemic reactions, weight loss/gain, lightheadedness/dizziness, and bowel changes/loose stools. Hemoglobin A1C (%) Date Value 06/09/2023 6.5 03/10/2023 7.4 08/11/2021 7.4 05/08/2021 7.4 ) Hypothyroidism. She is doing well on her current dose. TSH Date Value 06/09/2023 3.250 mIU/L 12/02/2022 3.370 mIU/L 08/11/2021 3.410 uU/mL 03/04/2021 2.640 uU/mL ) Review of Systems Constitutional: Negative. Musculoskeletal: Positive for arthralgias. Objective BP 126/70 Pulse 91 Resp 16 Wt 87.1 kg (192 lb) BMI 38.78 kg/m? Physical Exam Vitals and nursing note reviewed. Constitutional: Appearance: Normal appearance. HENT: Head: Normocephalic and atraumatic. Eyes: Conjunctiva/sclera: Conjunctivae normal. Neck: Thyroid: No thyromegaly. Vascular: Normal carotid pulses. No JVD. Cardiovascular: Rate and Rhythm: Normal rate and regular rhythm. Pulses: Carotid pulses are 2+ on the right side and 2+ on the left side. Radial pulses are 2+ on the right side and 2+ on the left side. Heart sounds: Normal heart sounds. Pulmonary: Breath sounds: Normal breath sounds. Abdominal: General: Bowel sounds are normal. Palpations: Abdomen is soft. Musculoskeletal: Right (more content not included)... [facility] 07-12-2023 Miscellaneous Notes Patient has been identified [...] (197 lb) Not applicable Please advise. Sandy Jackson documented in this encounter [facility] 06-15-2023 Miscellaneous Notes Pt was given info from provider & states understanding. Pt will contact ortho & ask for their recommendation. Hillary Lund LPN Called and left a voicemail for the patient to call back and ask for a nurse to receive the providers message. Please look at recent labs from [facility] as the fluid from her knee was sent to be cultured . If she has not talked to ortho, I am unsure how she knows there is for sure no infection. Patient needs to call orthopedic as this pain is worsening which is concerning. Taking narcotics may cover up this pain and underlying cause may get worse. Thank you Monserrat Hathaway APRN.CNP Pt notified of provider message. Pt reports she has tried numerous times to get a hold of surgeons office but does not get a call back. Pt reports the tramadol that Monserrat Hathaway CNP prescribed at [facility] does not help at all. Pt is [...] help with the pain. Pt uses [facility]. Please review and advise. documented in this encounter [facility] 06-15-2023 Miscellaneous Notes Patient has been identified [...] advise. Collette Jackson documented in this encounter [facility] 06-11-2023 Note HNO ID: [id number] Author: Monserrat Hathaway APRN.POT LINING SUPERVISOR Service: ? Author Type: Nurse Practitioner Type: Progress Notes Filed: 06/12/2023 8:02 AM Note Text: CC: Patient presents with: Recheck: 3 month follow up HPI Gypsy Segovia is a 78 year old female who presents today for routine follow up. DIABETES MELLITUS: Ms. Segovia denies excessive thirst or increased frequency of [...] 05/08/2021 7.4 ) Sees Dr. Waller at [facility] every three months. HTN and HLD: Ms. Segovia indicates that she is feeling well and denies any symptoms referable to elevated blood pressure. Specifically denies headache, chest pain, palpitations, dyspnea, and peripheral edema. Patient denies any side effects of her medication(s) and is compliant with their regimen. She does not check BP's generally. Gypsy denies regular aerobic exercise. She watches her [...] for knee replacement in September. Seeing Dr. Beltran at [facility]. All xrays and studies have been completed there. Pain is getting severe enough that she almost canceled appointment today because it is so painful to get ready and walk even with her cane. Has asked Dr. Beltran what else she could do for pain [...] ointment Lancing Device with Lancets (ONE TOUCH Magin) Use to check blood sugars as directed. blood sugar diagnostic (Natanael UlienUCH VERIO TEST STRIPS) test strip Use as instructed to check blood sugar twice daily E.11.65 latanoprost (XALATAN) 0.005 % ophthalmic solution timolol maleate (TIMOPTIC) 0.5 % ophthalmic solution lancets (ONE TOUCH Magin) 33 gauge USE TO CHECK GLUCOSE TWICE DAILY. E11.65 ferrous sulfate EC 324 mg (65 mg iron) TbEC Take 324 mg by mouth every other day. melatonin 5 mg tablet Take 5 mg by mouth daily at bedtime. aspirin, enteric coated (ADULT LOW DOSE ASPIRIN) 81 mg EC tablet Take 1 tablet by mouth onc (more content not included)... [facility] 06-11-2023 History of Present illness Narrative CC: Patient presents with: Recheck: 3 month follow up HPI Gypsy Segovia is a 78 year old female who presents today for routine follow up. DIABETES MELLITUS: Ms. Segovia denies excessive thirst or increased frequency of [...] 05/08/2021 7.4 ) Sees Dr. Waller at [facility] every three months. HTN and HLD: Ms. Segovia indicates that she is feeling well and denies any symptoms referable to elevated blood pressure. Specifically denies headache, chest pain, palpitations, dyspnea, and peripheral edema. Patient denies any side effects of her medication(s) and is compliant with their regimen. She does not check BP's generally. Gypsy denies regular aerobic exercise. She watches her [...] for knee replacement in September. Seeing Dr. Beltran at [facility]. All xrays and studies have been completed there. Pain is getting severe enough that she almost canceled appointment today because it is so painful to get ready and walk even with her cane. Has asked Dr. Beltran what else she could do for pain [...] 0.05 % ointment Lancing Device with Lancets (Ascentis) Use to check blood sugars as directed. blood sugar diagnostic (Kiwi VERIO TEST STRIPS) test strip Use as instructed to check blood sugar twice daily E.11.65 latanoprost (XALATAN) 0.005 % ophthalmic solution timolol maleate (TIMOPTIC) 0.5 % ophthalmic solution lancets (ONE TOUCH DELSimple Crossing) 33 gauge USE TO CHECK GLUCOSE TWICE [...] activity was identified. 06/11/2023 by Monserrat Hathaway APRN.POT LINING SUPERVISOR 6. Hypothyroidism, unspecified type - ICD9: 244.9, [...] Patient agreeable to treatment plan. Monserrat Hathaway APRN.POT LINING SUPERVISOR documented in this encounter [facility] 04-26-2023 Miscellaneous Notes Seen by Monserrat Hathaway CNP. Note BS is controlled, continue unchanged for now. Pt called to reports she was put n a new medication Jardiance and calling with blood sugar readings 16 118 17- 120 18- 117 04-24-23 119 04-25-23 121 04-26-23 113 Pt reports not having any side effects. Call pt only if there needs to be any changes. Mindy Moctezuma LPN documented in this encounter [facility] 03-11-2023 Note HNO ID: [id number] Author: Monserrat Hathaway APRN.DEAN Service: ? Author Type: Nurse Practitioner Type: Progress Notes Filed: 03/11/2023 2:20 PM Note Text: CC: Patient presents with: Recheck: 3 month follow up HPI Gypsy Segovia is a 78 year old female who presents today for routine follow up. DIABETES MELLITUS: Ms. Segovia denies excessive thirst or increased frequency of [...] was within the past 6 months at [facility]. Intermittent tingling to toes but very rare and does not even occur weekly and only lasts a few seconds. HTN: Ms. Segovia indicates that she is feeling well and denies any symptoms referable to elevated blood pressure. Specifically denies headache, chest pain, palpitations, dyspnea, and peripheral edema. Patient denies any side effects of her medication(s) and is compliant with their regimen. She does check BP's away from this office with average BP's in the 120s/70s range. Gypsy denies regular aerobic exercise. She watches her [...] 0.05 % ointment Lancing Device with Lancets (Ascentis) Use to check blood sugars as directed. blood sugar diagnostic (Kiwi VERIO TEST STRIPS) test strip Use as instructed to check blood sugar twice daily E.11.65 latanoprost (XALATAN) 0.005 % ophthalmic solution timolol maleate (TIMOPTIC) 0.5 % ophthalmic solution lancets (Ascentis) 33 gauge USE TO CHECK GLUCOSE TWICE [...] 80 Resp 16 (more content not included)... [facility] 03-11-2023 History of Present illness Narrative CC: Patient presents with: Recheck: 3 month follow up HPI Gypsy Segovia is a 78 year old female who presents today for routine follow up. DIABETES MELLITUS: Ms. Segovia denies excessive thirst or increased frequency of [...] was within the past 6 months at [facility]. Intermittent tingling to toes but very rare and does not even occur weekly and only lasts a few seconds. HTN: Ms. Segovia indicates that she is feeling well and denies any symptoms referable to elevated blood pressure. Specifically denies headache, chest pain, palpitations, dyspnea, and peripheral edema. Patient denies any side effects of her medication(s) and is compliant with their regimen. She does check BP's away from this office with average BP's in the 120s/70s range. Gypsy denies regular aerobic exercise. She watches her [...] 0.05 % ointment Lancing Device with Lancets (Ascentis) Use to check blood sugars as directed. blood sugar diagnostic (Natanael UlienUCH VERIO TEST STRIPS) test strip Use as instructed to check blood sugar twice daily E.11.65 latanoprost (XALATAN) 0.005 % ophthalmic solution timolol maleate (TIMOPTIC) 0.5 % ophthalmic solution lancets (Ascentis) 33 gauge USE TO CHECK GLUCOSE TWICE [...] Monserrat Hathaway APRN.CNP documented in this encounter [facility] 01-20-2023 Note HNO ID: [id number] Author: RT Maryan(R) Service: Radiology Author Type: Technologist Type: Progress Notes Filed: 01/20/2023 10:38 AM Note Text: Radiology Service Progress Note PATIENT NAME: Gypsy Segovia DATE OF SERVICE: January 20, 2023 TIME: [...] RT Maryan(R) January 20, 2023 10:27 AM [facility] 01-20-2023 Note HNO ID: [id number] Author: Carlos Hernandez APRN.CNP Service: ? Author [...] 0.05 % ointment Lancing Device with Lancets (Ascentis) Use to check blood sugars as directed. blood sugar diagnostic (ONETOUCH VERIO TEST STRIPS) test strip Use as instructed to check blood sugar twice daily E.11.65 latanoprost (XALATAN) 0.005 % ophthalmic solution timolol maleate (TIMOPTIC) 0.5 % ophthalmic solution lancets (ONE [employer]) 33 gauge USE TO CHECK GLUCOSE TWICE [...] arm: Tenderness pr (more content not included)... [facility] 01-20-2023 Miscellaneous Notes Pt was notified of the results. Pt verbalized understanding. Joselin Boswell MA No new findings noted on x-ray. Continue supportive therapies as discussed. Follow-up with PCP 01/22/2023 at 9 AM. Carlos Hernandez APRN.DEAN documented in this encounter [facility] 01-12-2023 Miscellaneous Notes Patient has been identified [...] advise. Sandy Lange documented in this encounter [facility] 12-24-2022 Miscellaneous Notes Left detailed message on identifiable voicemail. ----- Message from Monserrat Hathaway APRN.CNP sent at 12/24/2022 12:42 PM EDT ----- Please let patient know her cologuard is negative. This should be repeated every 3 years. Thank you Monserrat Older, HAIR DRESSER.POT LINING SUPERVISOR documented in this encounter [facility] 12-10-2022 Note HNO ID: [id number] Author: Monserrat Hathaway APRN.DEAN Service: ? Author Type: Nurse Practitioner Type: Progress Notes Filed: 12/15/2022 8:33 AM Note Text: CC: Patient presents with: Recheck: HTN follow up, review labs HPI Gypsy Segovia is a 77 year old female who presents today for follow up. HTN: Ms. Segovia indicates that she is feeling well and denies any symptoms referable to elevated blood pressure. Specifically denies headache, chest pain, palpitations, dyspnea, and peripheral edema. Patient denies any side effects of her medication(s) and is compliant with their regimen. She does check BP's away from this office with average BP's in the 120s/70s range. Gypsy denies regular aerobic exercise. She watches her diet for sodium, low fat and low cholesterol some of the time. Last 3 Encounter BP Readings: Date: BP: 12/10/2022 148/78[Home cuff[ 10/09/2022 142/78 01/06/2022 118/68 DIABETES MELLITUS: Ms. Segovia denies excessive thirst or increased frequency of [...] but has an appointment in January at [facility]. REVIEW OF SYSTEMS General: no fevers, no [...] 0.05 % ointment Lancing Device with Lancets (Ascentis) Use to check blood sugars as directed. blood sugar diagnostic (Natanael UlienUCH VERIO TEST STRIPS) test strip Use as instructed to check blood sugar twice daily E.11.65 latanoprost (XALATAN) 0.005 % ophthalmic solution timolol maleate (TIMOPTIC) 0.5 % ophthalmic solution lancets (ONE TOUCH DELICA) 33 gauge USE TO CHECK GLUCOSE TWICE [...] nodules, No adenopat (more content not included)... [facility] 12-10-2022 History of Present illness Narrative CC: Patient presents with: Recheck: HTN follow up, review labs HPI Gypsy Segovia is a 77 year old female who presents today for follow up. HTN: Ms. Segovia indicates that she is feeling well and denies any symptoms referable to elevated blood pressure. Specifically denies headache, chest pain, palpitations, dyspnea, and peripheral edema. Patient denies any side effects of her medication(s) and is compliant with their regimen. She does check BP's away from this office with average BP's in the 120s/70s range. Gypsy denies regular aerobic exercise. She watches her diet for sodium, low fat and low cholesterol some of the time. Last 3 Encounter BP Readings: Date: BP: 12/10/2022 148/78[Home cuff[ 10/09/2022 142/78 01/06/2022 118/68 DIABETES MELLITUS: Ms. Segovia denies excessive thirst or increased frequency of [...] but has an appointment in January at [facility]. REVIEW OF SYSTEMS General: no fevers, no [...] ointment Lancing Device with Lancets (ONE TOUCH Magin) Use to check blood sugars as directed. blood sugar diagnostic (Kiwi VERIO TEST STRIPS) test strip Use as instructed to check blood sugar twice daily E.11.65 latanoprost (XALATAN) 0.005 % ophthalmic solution timolol maleate (TIMOPTIC) 0.5 % ophthalmic solution lancets (ONE TOUCH Magin) 33 gauge USE TO CHECK GLUCOSE TWICE [...] Monserrat Hathaway APRN.CNP documented in this encounter [facility] 11-27-2022 Miscellaneous Notes Patient has been identified [...] Monica Deluca Pss documented in this encounter [facility] 11-16-2022 Miscellaneous Notes Pharmacy verified in [facility] Patient has been identified by name [...] Sandy Abdalla Pss documented in this encounter [facility] 10-09-2022 Note HNO ID: [id number] Author: Monserrat Hathaway APRN.CNP Service: ? Author Type: Nurse Practitioner Type: Progress Notes Filed: 10/09/2022 1:41 PM Note Text: CC: Patient presents with: Follow Up HPI Gypsy Segovia is a 77 year old female who presents today for routine follow up. HTN and HLD: Ms. Segovia indicates that she is feeling well and denies any symptoms referable to elevated blood pressure. Specifically denies headache, chest pain, palpitations, dyspnea, and peripheral edema. Patient denies any side effects of her medication(s) and is compliant with their regimen. She does check BP's away from this office with average BP's in the 110s/70s range. Gypsy denies regular aerobic exercise. She watches her [...] fever, chills, or edema. DIABETES MELLITUS: Ms. Seogvia denies excessive thirst or increased frequency of [...] was within the past 3 months at [facility]. Hypothyroidism: Takes medication as ordered. Denies any [...] ointment Lancing Device with Lancets (ONE TOUCH DELSimple Crossing) Use to check blood sugars as directed. blood sugar diagnostic (Natanael UlienUCH VERIO TEST STRIPS) test strip Use as instructed to check blood sugar twice daily E.11.65 latanoprost (XALATAN) 0.005 % ophthalmic solution timolol maleate (TIMOPTIC) 0.5 % ophthalmic solution lancets (ONE TOUCH DELSimple Crossing) 33 gauge USE TO CHECK GLUCOSE TWICE DAILY. E11.65 melatonin 5 mg tablet Take 5 mg by mouth daily at bedtime. FAMILY HISTORY Problem Relation Age of Onset Arthritis Mother Emphysema Father FROM THIS Breast Cancer Paternal Aunt Diabetes Brother Social History Tobacco Use Smoking s (more content not included)... [facility] 09-23-2022 History of Present illness Narrative Per Dr. Osorio, Gypsy was provided with Gel Powerstep inserts, size [...] 0.05 % ointment Lancing Device with Lancets (Ascentis) Use to check blood sugars as directed. blood sugar diagnostic (Natanael UlienUCH VERIO TEST STRIPS) test strip Use as instructed to check blood sugar twice daily E.11.65 carvedilol (COREG) 25 mg tablet Take 1 tablet by mouth twice daily. latanoprost (XALATAN) 0.005 % ophthalmic solution timolol maleate (TIMOPTIC) 0.5 % ophthalmic solution lancets ([employer] TOUCH Magin) 33 gauge USE TO CHECK GLUCOSE TWICE [...] If pain fails to improve, consider injection Kg Osorio DPM AMB ROOMING INTAKE FLOWSHEET DATA [...] time. X-ray done. documented in this encounter [facility] 09-23-2022 Instructions Kg Osorio - 09/23/2022 11:40 AM EST Images [...] time on their feet, such as nurses, dividend clerk/waiters, and mail carriers, often experience plantar fasciitis. [...] choose the one that fits the best. [place] with your athletic shoes to find a [...] Powerstep Original Full length. Can purchase at [employer] here in [place], [employer] in [place] or [place]. Also can find in [employer] in [facility]. Powersteps can also be purchased online, starting [...] fits well together documented in this encounter [facility] 08-14-2022 Miscellaneous Notes Patient has been identified [...] advise. Sandy Lange documented in this encounter [facility] 07-03-2022 Miscellaneous Notes Patient has been identified [...] to pharmacy. No need to notify patient. [employer] documented in this encounter [facility] 02-18-2022 Miscellaneous Notes Patient calls to request a referral to podiatry. Patient reports that she is having problems with a right heel spur and right foot plantar fasciitis. Please call patient at [phone] to schedule once order placed. Mirtha Madrigal RN documented in this encounter [facility] 02-12-2022 Miscellaneous Notes February 12, 2022 PID: [id number] Gypsy Segovia [address] [place] [address] Dear Ms. Segovia, We are pleased to inform you that [...] report will be kept on file at [facility] as part of your permanent medical record and are available for your continuing care. Thank you for allowing us to help in meeting your health care needs. Sincerely, Dr. Ruiz Interpreting Radiologist [facility] (Normal over 40) documented in this encounter [facility] 02-12-2022 History of Present illness Narrative Radiology Service Progress Note PATIENT NAME: Gypsy Segovia DATE OF SERVICE: February 12, 2022 TIME: [...] PERIPHERAL IV DATA: Not applicable SIGNED BY: Elif Dyson [employer] February 12, 2022 11:09 AM documented in this encounter [facility] 02-10-2022 Miscellaneous Notes Pt reports she is [...] Nikole Avilez RN documented in this encounter [facility] 01-07-2022 Miscellaneous Notes Printed order faxed to [facility] requesting they call pt to arrange. Patient is requesting METHACHOLINE CHALLENGE order be sent to the [facility] documented in this encounter [facility] 01-06-2022 History of Present illness Narrative Welcome [...] Topics Alcohol use: No Drug use: No Gypsy denies regular aerobic exercise. She watches her diet for sodium, low fat and low cholesterol most of the time. List of current specialists seen: Eye doctor End of Live Planning discussed including patients advanced directive wishes: Yes I am willing to follow Gypsy's advanced directives. PHQ-2 / Depression screen She [...] - Glaucoma screening - Lipid panel Mari Arora MD Reason for Visit Patient presents with: F/U HTN 6 Month Gypsy S Elder is a 76 year old female [...] Pepcid. Not wiling to travel out of [place]. She does has sob , just the [...] ointment Lancing Device with Lancets (ONE TOUCH DELSimple Crossing) valsartan (DIOVAN) 80 mg tablet blood sugar diagnostic (Natanael UlienUCH VERIO TEST STRIPS) test strip carvedilol (COREG) [...] diet of 1000 mg/day for under 50, 4342-5486 mg/day for 50+ 2. Abnormal lung function [...] Mari Arora MD documented in this encounter [facility] 12-29-2021 Miscellaneous Notes Patient has been identified [...] Merlene Cleaning LPN documented in this encounter [facility] 11-27-2021 History of Present illness Narrative Primary Care Pharmacy Visit CC (Reason for Consult): DM and HTN Goal: A1c < 7%, BP < 130/80 mmHg Collaborating Provider: Dr. Arora Last Collaborating Provider Visit: 08/12/21 Gypsy Segovia is a 76 year old female presenting [...] [facility] coverage: Medicare and [place] Affordability: no issues Diabetes supplies: [employer] System: none, uses pill box when she [...] 10mg tablet (15mg daily). lancets (ONE TOUCH DELSimple Crossing) 33 gauge USE TO CHECK GLUCOSE TWICE DAILY. E11.65 Lancing Device with Lancets (ONE TOUCH DELSimple Crossing) Use to check blood sugars as directed. [...] 127 08/11/2021 The 10-year ASCVD risk score (Arnegard DC Jr., et al., 2013) is: 36.1% Values [...] on 01/06. Patient verbalized understanding of instructions. Cassandra RiverD, BCPS Primary Care Clinical Pharmacist [place] [facility] The majority of the pharmacy visit (> 50%) was spent counseling and/or coordinating care for the patient. interaction: telephonic time was 12 minutes. documented in this encounter [facility] documented as of this encounter (statuses as of 11/27/2021) [address] History of Past illness Narrative* Problem Noted Date Resolved Date Headache(784.0) 10/23/2010 06/12/2015 Itchy skin of anus and genitals 11/22/2009 06/12/2015 Dysmetabolic syndrome X 05/25/2006 11/23/19 10 documented as of this encounter (statuses as of 12/29/2021) [address] History of Past illness Narrative* Problem Noted Date Resolved Date Headache(784.0) 10/23/2010 06/12/2015 Itchy skin of anus and genitals 11/22/2009 06/12/2015 Dysmetabolic syndrome X 05/25/2006 11/23/19 10 documented as of this encounter (statuses as of 01/06/2022) [address] History of Past illness Narrative* Problem Noted Date Resolved Date Headache(784.0) 10/23/2010 06/12/2015 Itchy skin of anus and genitals 11/22/2009 06/12/2015 Dysmetabolic syndrome X 05/25/2006 11/23/19 10 documented as of this encounter (statuses as of 02/10/2022) [address] History of Past illness Narrative* Problem Noted Date Resolved Date Headache(784.0) 10/23/2010 06/12/2015 Itchy skin of anus and genitals 11/22/2009 06/12/2015 Dysmetabolic syndrome X 05/25/2006 11/23/19 10 documented as of this encounter (statuses as of 02/13/2022) [address] History of Past illness Narrative* Problem Noted Date Resolved Date Headache(784.0) 10/23/2010 06/12/2015 Itchy skin of anus and genitals 11/22/2009 06/12/2015 Dysmetabolic syndrome X 05/25/2006 11/23/19 10 documented as of this encounter (statuses as of 02/14/2022) [address] History of Past illness Narrative* Problem Noted Date Resolved Date Headache(784.0) 10/23/2010 06/12/2015 Itchy skin of anus and genitals 11/22/2009 06/12/2015 Dysmetabolic syndrome X 05/25/2006 11/23/19 10 documented as of this encounter (statuses as of 02/18/2022) [address] History of Past illness Narrative* Problem Noted Date Resolved Date Headache(784.0) 10/23/2010 06/12/2015 Itchy skin of anus and genitals 11/22/2009 06/12/2015 Dysmetabolic syndrome X 05/25/2006 11/23/19 10 documented as of this encounter (statuses as of 02/20/2022) [address] History of Past illness Narrative* Problem Noted Date Resolved Date Headache(784.0) 10/23/2010 06/12/2015 Itchy skin of anus and genitals 11/22/2009 06/12/2015 Dysmetabolic syndrome X 05/25/2006 11/23/19 10 documented as of this encounter (statuses as of 07/03/2022) [address] History of Past illness Narrative* Problem Noted Date Resolved Date Headache(784.0) 10/23/2010 06/12/2015 Itchy skin of anus and genitals 11/22/2009 06/12/2015 Dysmetabolic syndrome X 05/25/2006 11/23/19 10 documented as of this encounter (statuses as of 08/17/2022) [address] History of Past illness Narrative* Problem Noted Date Resolved Date Headache(784.0) 10/23/2010 06/12/2015 Itchy skin of anus and genitals 11/22/2009 06/12/2015 Dysmetabolic syndrome X 05/25/2006 11/23/19 10 documented as of this encounter (statuses as of 09/23/2022) [address] History of Past illness Narrative* Problem Noted Date Resolved Date Headache(784.0) 10/23/2010 06/12/2015 Itchy skin of anus and genitals 11/22/2009 06/12/2015 Dysmetabolic syndrome X 05/25/2006 11/23/19 10 documented as of this encounter (statuses as of 11/16/2022) [place] [id number] History of Past illness Narrative* Problem Noted Date Resolved Date Headache(784.0) 10/23/2010 06/12/2015 Itchy skin of anus and genitals 11/22/2009 06/12/2015 Dysmetabolic syndrome X 05/25/2006 11/23/19 10 documented as of this encounter (statuses as of 11/27/2022) [address] History of Past illness Narrative* Problem Noted Date Resolved Date Headache(784.0) 10/23/2010 06/12/2015 Itchy skin of anus and genitals 11/22/2009 06/12/2015 Dysmetabolic syndrome X 05/25/2006 11/23/19 10 documented as of this encounter (statuses as of 12/15/2022) [address] History of Past illness Narrative* Problem Noted Date Resolved Date Headache(784.0) 10/23/2010 06/12/2015 Itchy skin of anus and genitals 11/22/2009 06/12/2015 Dysmetabolic syndrome X 05/25/2006 11/23/19 10 documented as of this encounter (statuses as of 12/25/2022) [address] History of Past illness Narrative* Problem Noted Date Resolved Date Headache(784.0) 10/23/2010 06/12/2015 Itchy skin of anus and genitals 11/22/2009 06/12/2015 Dysmetabolic syndrome X 05/25/2006 11/23/19 10 documented as of this encounter (statuses as of 01/13/2023) [address] History of Past illness Narrative* Problem Noted Date Resolved Date Headache(784.0) 10/23/2010 06/12/2015 Itchy skin of anus and genitals 11/22/2009 06/12/2015 Dysmetabolic syndrome X 05/25/2006 11/23/19 10 documented as of this encounter (statuses as of 01/20/2023) [address] History of Past illness Narrative* Problem Noted Date Resolved Date Headache(784.0) 10/23/2010 06/12/2015 Itchy skin of anus and genitals 11/22/2009 06/12/2015 Dysmetabolic syndrome X 05/25/2006 11/23/19 documented as of this encounter (statuses as of 03/12/2023) [address] History of Past illness Narrative* Problem Noted Date Diagnosed Date Resolved Date Headache(784.0) 10/23/2010 06/12/2015 Itchy skin of anus and genitals 11/22/2009 06/12/2015 Dysmetabolic syndrome X 05/25/200611/04 documented as of this encounter (statuses as of 04/26/2023) [address] History of Past illness Narrative* Problem Noted Date Diagnosed Date Resolved Date Headache(784.0) 10/23/2010 06/12/2015 Itchy skin of anus and genitals 11/22/2009 06/12/2015 Dysmetabolic syndrome X 05/25/200611/04 documented as of this encounter (statuses as of 06/12/2023) [place] [address] History of Past illness Narrative* Problem Noted Date Diagnosed Date Resolved Date Headache(784.0) 10/23/2010 06/12/2015 Itchy skin of anus and genitals 11/22/2009 06/12/2015 Dysmetabolic syndrome X 05/25/200611/04 documented as of this encounter (statuses as of 06/15/2023) [address]17-2011 History of Past illness Narrative* Problem Noted Date Diagnosed Date Resolved Date Headache(784.0) 10/23/2010 06/12/2015 Itchy skin of anus and genitals 11/22/2009 06/12/2015 Dysmetabolic syndrome X 05/25/200611/04 documented as of this encounter (statuses as of 06/16/2023) [address]17-2011 History of Past illness Narrative* Problem Noted Date Diagnosed Date Resolved Date Headache(784.0) 10/23/2010 06/12/2015 Itchy skin of anus and genitals 11/22/2009 06/12/2015 Dysmetabolic syndrome X 05/25/200611/04 documented as of this encounter (statuses as of 06/21/2023) [address]17-2011 History of Past illness Narrative* Problem Noted Date Diagnosed Date Resolved Date Headache(784.0) 10/23/2010 06/12/2015 Itchy skin of anus and genitals 11/22/2009 06/12/2015 Dysmetabolic syndrome X 05/25/200611/04 documented as of this encounter (statuses as of 07/13/2023) [facility] Diagnosis Type 2 diabetes mellitus with microalbuminuria, without long-term current use of insulin (HCC)- Primary Essential hypertension Unspecified essential hypertension documented [facility] this encounter [facility]* Diagnosis Medicare annual wellness visit, subsequent- Primary Routine general medical examination at a health care facility Abnormal lung function test Nonspecific abnormal results of pulmonary system function study Cough Morbid obesity with BMI of 40.0-44.9, adult (HCC) Morbid obesity Type 2 diabetes mellitus with microalbuminuria, without long-term current use of insulin (HCC) Hypothyroidism, unspecified type Essential hypertension Unspecified essential hypertension Mixed hyperlipidemia Cough variant asthma documented [facility] encounter [facility]* Diagnosis Encounter for screening mammogram for breast cancer [facility] Diagnosis Plantar fasciitis- Primary Plantar fascial fibromatosis Calcaneal spur of right foot Calcaneal spur [facility] Diagnosis Calcaneal spur of right foot Calcaneal spur Plantar fasciitis Plantar fascial fibromatosis [facility] Diagnosis Type 2 diabetes mellitus with microalbuminuria, without long-term current use of insulin (HCC)- Primary Essential hypertension Unspecified essential hypertension Colon cancer screening Special screening for malignant neoplasms, colon [facility] Diagnosis Essential hypertension- Primary Unspecified essential hypertension Hypothyroidism, unspecified type Type 2 diabetes mellitus with microalbuminuria, without long-term current use of insulin (HCC) Stage 3a chronic kidney disease (HCC) [facility] Diagnosis Essential hypertension- Primary Unspecified essential hypertension Mixed hyperlipidemia Type 2 diabetes mellitus with microalbuminuria, without long-term current use of insulin (HCC) Stage 3a chronic kidney disease (HCC) Right knee pain, unspecified chronicity Hypothyroidism, unspecified type documented in this encounter [facility] for referral (narrative)* Diagnostic Procedure Only (Routine) - Closed Specialty Diagnoses / Procedures Referred By Contac t Referred To Contact [facility] Diagnoses Encounter for screening mammogram for breast cancer Procedures ALONSO SCREENING W SHARDA SCREENING BREAST DGTL SHARDA UNI/BILAT ADD ON SCREENING MAMMOGRAPHY BI 2-VIEW BREAST INC CAD Genesis Major, HAIR DRESSER.MUFFLER INSTALLER [address] [place] [address] [facility] [address] [place] [address] Referral ID Status Reason Start Date Expiration Date V isits Requested Visits Authorized [id number] Closed Auto-Generate d Referral 08/12/2021 09/11/2022 1 1 [facility] for visit Narrative* Diagnostic Procedure Only (Routine) - Closed Specialty Diagnoses / Procedures Referred By Armani t Referred To Contact [facility] Diagnoses Encounter for screening mammogram for breast cancer Procedures ALONSO SCREENING W SHARDA SCREENING BREAST DGTL SHARDA UNI/BILAT ADD ON SCREENING MAMMOGRAPHY BI 2-VIEW BREAST INC Genesis Jaramillo, HAIR DRESSER.MUFFLER INSTALLER [address] [place] [address] [facility] [address] [place] [address] Referral ID Status Reason Start Date Expiration Date V isits Requested Visits Authorized [id number] Closed Auto-Generate d Referral 08/12/2021 09/11/2022 1 1 [facility] Summary Purpose Family History No Family History Records FoundNo Family History Records FoundNo Family History Records Found Advance Directives No Advanced Directives Records FoundNo Advanced Directives Records FoundNo Advanced Directives Records Found Reason for Referral Specialty Diagnoses / Procedures Referred By Armani t Referred To Contact Pulmonary and Critical Care Medicine Diagnoses Abnormal lung function test Cough Procedures CONSULT TO PULM/CRITICAL CARE OFFICE/OUTPATIENT [facility] 60-74 MINUTES Mari Arora MD [address] [place] [address] Referral ID Status Reason Start Date Expiration Date Visits Requested Visits Authorized [id number] Authorized PCP Requested Referral 01/06/2022 01/06/2023 1 1 Specialty Diagnoses / Procedures Referred By Armani t Referred To Contact [facility] Diagnoses Abnormal lung function test Cough Procedures METHACHOLINE CHALLENGE INHLJ BRNCL CHALLENGE TSTG W/HISTAM/METHACHOL Mari Arora MD [address] [place] [address] Res[facility] [place] [address] [place] [address] Referral ID Status Reason Start Date Expiration Date Visits Requested Visits Authorized [id number] Pending Review Auto-Generat ed Referral 01/06/2022 02/05/2023 1 1 Specialty Diagnoses / Procedures Referred By Armani werner Referred To Contact Podiatry Diagnoses Calcaneal spur of right foot Plantar fasciitis Procedures CONSULT TO PODIATRY OFFICE/OUTPATIENT [facility] MDM 60-74 MINUTES Mari Arora MD [address] [place] [address] Referral ID Status Reason Start Date Expiration Date Visits Requested Visits Authorized [id number] Authorized PCP Requested Referral 02/18/2022 02/18/2023 1 1 Specialty Diagnoses / Procedures Referred By Armani werner Referred To Contact Lindsey Hathaway APRN.CNP [address] [place] [address] Referral ID Status Reason Start Date Expiration Date Visits Re quested Visits Authorized [id number] Closed 1 1 Additional Source Comments INFORMATION SOURCE (unrecogn ized section and content) DATE CREATED AUTHOR AUTHOR'S ORGANIZ ATION 02/25/2018 [facility] DATE CREATED AUTHOR AUTHOR'S ORGANIZ ATION 09/28/2023 [facility] Source Comments (unrecognize d section and content) In the event this informatio n is protected by the Federal Confidentiality of Alcohol and Drug Abuse Patient Records regulations: The Federal rules restrict any use of the information to criminally investigate or prosecute any alcohol or drug abuse patient.[facility] the event this information is protected by the Federal Confidentiality of Alcohol and Drug Abuse Patient Records regulations: The Federal rules restrict any use of the information to criminally investigate or prosecute any alcohol or drug abuse patient.[facility] the event this information is protected by the Federal Confidentiality of Alcohol and Drug Abuse Patient Records regulations: The Federal rules restrict any use of the information to criminally investigate or prosecute any alcohol or drug abuse patient.[facility] the event this information is protected by the Federal Confidentiality of Alcohol and Drug Abuse Patient Records regulations: The Federal rules restrict any use of the information to criminally investigate or prosecute any alcohol or drug abuse patient.[facility] the event this information is protected by the Federal Confidentiality of Alcohol and Drug Abuse Patient Records regulations: The Federal rules restrict any use of the information to criminally investigate or prosecute any alcohol or drug abuse patient.[facility] Rehabilitation[facility] the event this information is protected by the Federal Confidentiality of Alcohol and Drug Abuse Patient Records regulations: The Federal rules restrict any use of the information to criminally investigate or prosecute any alcohol or drug abuse patient.[facility] Rehabilitation[facility] the event this information is protected by the Federal Confidentiality of Alcohol and Drug Abuse Patient Records regulations: The Federal rules restrict any use of the information to criminally investigate or prosecute any alcohol or drug abuse patient.[facility] Rehabilitation[facility] the event this information is protected by the Federal Confidentiality of Alcohol and Drug Abuse Patient Records regulations: The Federal rules restrict any use of the information to criminally investigate or prosecute any alcohol or drug abuse patient.[facility] Rehabilitation[facility] the event this information is protected by the Federal Confidentiality of Alcohol and Drug Abuse Patient Records regulations: The Federal rules restrict any use of the information to criminally investigate or prosecute any alcohol or drug abuse patient.[facility] Rehabilitation[facility] the event this information is protected by the Federal Confidentiality of Alcohol and Drug Abuse Patient Records regulations: The Federal rules restrict any use of the information to criminally investigate or prosecute any alcohol or drug abuse patient.[facility] Rehabilitation[facility] the event this information is protected by the Federal Confidentiality of Alcohol and Drug Abuse Patient Records regulations: The Federal rules restrict any use of the information to criminally investigate or prosecute any alcohol or drug abuse patient.[facility] Rehabilitation[facility] the event this information is protected by the Federal Confidentiality of Alcohol and Drug Abuse Patient Records regulations: The Federal rules restrict any use of the information to criminally investigate or prosecute any alcohol or drug abuse patient.[facility] Rehabilitation[facility] the event this information is protected by the Federal Confidentiality of Alcohol and Drug Abuse Patient Records regulations: The Federal rules restrict any use of the information to criminally investigate or prosecute any alcohol or drug abuse patient.[facility] Rehabilitation[facility] the event this information is protected by the Federal Confidentiality of Alcohol and Drug Abuse Patient Records regulations: The Federal rules restrict any use of the information to criminally investigate or prosecute any alcohol or drug abuse patient.[facility] RehabilitationIn the event this information is protected by the Federal Confidentiality of Alcohol and Drug Abuse Patient Records regulations: The Federal rules restrict any use of the information to criminally investigate or prosecute any alcohol or drug abuse patient.[facility] RehabilitationIn the event this information is protected by the Federal Confidentiality of Alcohol and Drug Abuse Patient Records regulations: The Federal rules restrict any use of the information to criminally investigate or prosecute any alcohol or drug abuse patient.[facility] RehabilitationIn the event this information is protected by the Federal Confidentiality of Alcohol and Drug Abuse Patient Records regulations: The Federal rules restrict any use of the information to criminally investigate or prosecute any alcohol or drug abuse patient.[facility] RehabilitationIn the event this information is protected by the Federal Confidentiality of Alcohol and Drug Abuse Patient Records regulations: The Federal rules restrict any use of the information to criminally investigate or prosecute any alcohol or drug abuse patient.[facility] RehabilitationIn the event this information is protected by the Federal Confidentiality of Alcohol and Drug Abuse Patient Records regulations: The Federal rules restrict any use of the information to criminally investigate or prosecute any alcohol or drug abuse patient.[facility] RehabilitationIn the event this information is protected by the Federal Confidentiality of Alcohol and Drug Abuse Patient Records regulations: The Federal rules restrict any use of the information to criminally investigate or prosecute any alcohol or drug abuse patient.[facility] RehabilitationIn the event this information is protected by the Federal Confidentiality of Alcohol and Drug Abuse Patient Records regulations: The Federal rules restrict any use of the information to criminally investigate or prosecute any alcohol or drug abuse patient.[facility] RehabilitationIn the event this information is protected by the Federal Confidentiality of Alcohol and Drug Abuse Patient Records regulations: The Federal rules restrict any use of the information to criminally investigate or prosecute any alcohol or drug abuse patient.[facility] RehabilitationIn the event this information is protected by the Federal Confidentiality of Alcohol and Drug Abuse Patient Records regulations: The Federal rules restrict any use of the information to criminally investigate or prosecute any alcohol or drug abuse patient.[facility] RehabilitationIn the event this information is protected by the Federal Confidentiality of Alcohol and Drug Abuse Patient Records regulations: The Federal rules restrict any use of the information to criminally investigate or prosecute any alcohol or drug abuse patient.[facility] Reason for Visit (unrecogniz ed section and [...] MDM 60-74 MINUTES Mari Arora MD [address] [facility] [place] [address] Referral ID Status Reason Start Date Expiration Date V isits Requested Visits Authorized [id number] Closed PCP Requested Referral 02/18/2022 02/18/2023 1 [...] Care Teams (unrecognized sec tion and content) Hunting Sales Associate Relationship Specialty Start Date End Date Mari Arora MD [address] [facility] [place] [address] PCP - General Internal Medicine 08/06/17 [facility] [address] [facility] [place] [address] Pharmacist Pharmacy 06/01/19 Hunting Sales Associate Relationship Specialty Start Date End Date Mari Arora MD [address] [facility] [place] [address] PCP - General Internal Medicine 08/06/17 [facility] [address] [facility] [place] [address] Pharmacist Pharmacy 06/01/19 Hunting Sales Associate Relationship Specialty Start Date End Date Mari Arora MD [address] [facility] [place] [address] PCP - General Internal Medicine 08/06/17 Triny Vazquez [facility] [address] [place] [address] Pharmacist Pharmacy 06/01/19 Hunting Sales Associate Relationship Specialty Start Date End Date Mari Arora MD [address] [place] [address] PCP - General Internal Medicine 08/06/17 Triny Vazquez, [facility] [address] [place] [address] Pharmacist Pharmacy 06/01/19 Hunting Sales Associate Relationship Specialty Start Date End Date Mari Arora MD [address] [place] [address] PCP - General Internal Medicine 08/06/17 Triny Vazquez, [facility] [address] [place] [address] Pharmacist Pharmacy 06/01/19 Hunting Sales Associate Relationship Specialty Start Date End Date Mari Arora MD [address] [place] [address] PCP - General Internal Medicine 08/06/17 Triny Vazquez, [facility] [address] [place] [address] Pharmacist Pharmacy 06/01/19 Hunting Sales Associate Relationship Specialty Start Date End Date Mari Arora MD [address] [place] [address] PCP - General Internal Medicine 08/06/17 Triny Vazquez, [facility] [address] [place] [address] Pharmacist Pharmacy 06/01/19 Hunting Sales Associate Relationship Specialty Start Date End Date Mari Arora MD [address] [place] [address] PCP - General Internal Medicine 08/06/17 George, Triny, [facility] [address] [place] [address] Pharmacist Pharmacy 06/01/19 Hunting Sales Associate Relationship Specialty Start Date End Date Mari Arora MD [address] [place] [address] PCP - General Internal Medicine 08/06/17 George, Triny, [facility] [address] [place] [address] Pharmacist Pharmacy 06/01/19 Hunting Sales Associate Relationship Specialty Start Date End Date Mari Arora MD [address] [place] [address] PCP - General Internal Medicine 08/06/17 Triny Vazquez, [facility] [address] [place] [address] Pharmacist Pharmacy 06/01/19 Hunting Sales Associate Relationship Specialty Start Date End Date Mari Arora MD [address] [place] [address] PCP - General Internal Medicine 08/06/17 Grant, Triny, [facility] [address] [place] [address] Pharmacist Pharmacy 06/01/19 Hunting Sales Associate Relationship Specialty Start Date End Date Mari Arora MD [address] [place] [address] PCP - General Internal Medicine 08/06/17 Triny Vazquez, [facility] [address] [place] [address] Pharmacist Pharmacy 06/01/19 Hunting Sales Associate Relationship Specialty Start Date End Date Mari Arora MD [address] [place] [address] PCP - General Internal Medicine 08/06/17 Triny Vazquez, [facility] [address] [place] [address] Pharmacist Pharmacy 06/01/19 Hunting Sales Associate Relationship Specialty Start Date End Date Mari Arora MD [address] [place] [address] PCP - General Internal Medicine 08/06/17 Triny Vazquez, [facility] [address] [place] [address] Pharmacist Pharmacy 06/01/19 Hunting Sales Associate Relationship Specialty Start Date End Date Mari Arora MD [address] [place] [address] PCP - General Internal Medicine 08/06/17 Triny Vazquez, [facility] [address] [place] [address] Pharmacist Pharmacy 06/01/19 Hunting Sales Associate Relationship Specialty Start Date End Date Mari Arora MD [address] [place] [address] PCP - General Internal Medicine 08/06/17 Triny Vazquez, [facility] [address] [place] [address] Pharmacist Pharmacy 06/01/19 Hunting Sales Associate Relationship Specialty Start Date End Date Mair Arora MD [address] [place] [address] PCP - General Internal Medicine 08/06/17 Triny Vazquez, [facility] [address] [place] [address] Pharmacist Pharmacy 06/01/19 Hunting Sales Associate Relationship Specialty Start Date End Date Mari Arora MD [address] [place] [address] PCP - General Internal Medicine 08/06/17 [facility] [address] [place], [place] [id number] Pharmacist Pharmacy 06/01/19 FOR RECORDS PERTAINING TO [...] BE BASED ON THE PRIMARY CLINICAL RECORDS. [employer] provides no warranty or guarantee of the accuracy or completeness of information in this document.
== END | disposition home or self-care (01) ==
LOC: LABSPEC 15:36
PROVIDERS: PCP Internal Medicine; Referring Provider Orthopaedic Surgery; Visit Provider Orthopaedic Surgery
DX: M17.11 Unilateral primary osteoarthritis, right knee (principal)
CPT/HCPCS: 88305; 88311

== ENCOUNTER → 2024-09-26 | Outpatient (CLI) | payer MEDICARE, OTHER, SELFPAY ==
--- NOTE | 2024-09-26 13:08 | CT_ITS ---
CT LEFT LOWER EXTREMITY WITH 3-D IMAGING CLINICAL INDICATION: OSTEOARTHRITIS TECHNIQUE: Axial CT images of the left lower extremity (including left hip, left knee, and left ankle) was performed without IV contrast material. Coronal and sagittal reformats were provided. The protocol utilizes one or more of the following dose reduction techniques: automated exposure control, adjustment of mA and/or kV according to patient size, and/or use of iterative reconstruction technique. RADIATION DOSAGE (If Supplied By Facility): CTDIvol = ( 18.76 ) mGy, DLP = ( 1409.72 ) mGycm COMPARISON: Left knee radiographs dated 12/30/2016. FINDINGS: Bones: Normal left hip joint. There is tricompartment degenerative arthrosis of the left knee, most severe in the medial femorotibial compartment, where there is joint space narrowing, marginal osteophyte formation, and subchondral sclerosis/cyst formation. There is a plantar calcaneal spur. Osseous structures are normal without evidence of fracture or dislocation. No lytic or blastic osseous masses. Soft Tissues: There are calcified uterine fibroids. There is a small left knee joint effusion. The deep soft tissue structures are unremarkable. There are atherosclerotic calcifications. The superficial soft tissues are otherwise unremarkable without evidence of edema, hematoma, or foreign body. CT/Extremity Lower without Contra IMPRESSION: Tricompartment degenerative arthrosis of the left knee, most severe in the medial femorotibial compartment. Small left knee joint effusion. Electronically Signed: Toby Yanez MD at 16:14 EST ,
== END | disposition home or self-care (01) ==
LOC: CT 12:55
PROVIDERS: PCP Internal Medicine; Referring Provider Orthopaedic Surgery; Visit Provider Orthopaedic Surgery
DX: M17.12 Unilateral primary osteoarthritis, left knee (principal)
CPT/HCPCS: 73700

== ENCOUNTER → 2024-10-23 | Outpatient (CLI) | payer MEDICARE, OTHER, SELFPAY ==
[2024-10-23 12:45] LABS: Absolute Lymphocyte Count 1.82 X10^3/uL (0.83-4.51); Absolute Neutrophil Count 3.9 X10^3/uL (2.0-7.7); Basophil# 0.05 X10^3/uL; Basophil% 0.7 % (0-1); Eosinophil# 0.45 X10^3/uL; Eosinophils% 6.7 % (0-5); Hematocrit 43.9 % (37-47); Lymphocyte # 1.82 X10^3/ul (0.83-4.51); Mean Corp Hgb Conc 31.9 g/dL (32-36); Mean Corpuscular Hgb 29.2 pg (27.0-32.0); Mean Corpuscular Volume 91.5 fL (81-99); Mean Platelet Vol. 9.7 fl (6.2-12.0); Monocyte# 0.54 X10^3/uL; NRBC Flagged by Analyzer 0 % (0-5); Neutrophil # 3.85 X10^3/uL (2.7-7.7); Neutrophil % 57.3 % (47-70); Platelet Count 255 K/mm3 (150-450); RBC Distribution Width CV 13.8 % (11.6-14.6); RBC Distribution Width SD 46.9 fl (35.1-43.9); White Blood Count 6.7 K/mm3 (4.4-11.0)
[2024-10-23 13:11] LABS: Albumin, Serum 3.7 g/dL (3.2-5.0); Anion Gap 7 (5-15); BUN 12 mg/dL (7-18); BUN/Creat Ratio 10.7 RATIO (10-20); Calcium,Total 9.3 mg/dL (8.5-10.1); Chloride 106 mmol/L (98-107); Creatinine, Serum 1.12 mg/dL (0.55-1.02); EST Glomerular Filtration Rate 50 mL/min (>60); Est Glom Filt Rate - Afr Amer 61 mL/min (>60); Glucose 156 mg/dL (74-106); Sodium Level 139 mmol/L (136-145)
== END | disposition home or self-care (01) ==
PROVIDERS: PCP Internal Medicine; Referring Provider Orthopaedic Surgery; Visit Provider Orthopaedic Surgery
DX: Z01.818 Encounter for other preprocedural examination (principal); M17.12 Unilateral primary osteoarthritis, left knee; Z01.810 Encounter for preprocedural cardiovascular examination; I10 Essential (primary) hypertension; Z01.811 Encounter for preprocedural respiratory examination
CPT/HCPCS: 36415; 80048; 82040; 85025; 93005

== ENCOUNTER → 2024-11-08 | Outpatient (CLI) | payer MEDICARE, OTHER, SELFPAY ==
--- NOTE | 2024-11-08 12:34 | RAD_ITS ---
PROCEDURE: CHEST PA AND LATERAL REASON FOR EXAM: Preop. TECHNIQUE: Frontal and lateral views of the chest. COMPARISON: Chest x-ray of 10/08/2023. RAD/Chest PA and Lateral IMPRESSION: Mild right hemidiaphragm elevation is again seen. Lungs appear clear of acute disease. No pleural effusion or pneumothorax is seen. The cardiomediastinal silhouette is stable, with a partially calcified aorta no vinod. No evidence of cardiomegaly. No acute osseous change is seen. No evidence of acute cardiopulmonary disease. Reading Location: [id number]
== END | disposition home or self-care (01) ==
LOC: RAD 11:40
PROVIDERS: PCP Internal Medicine; Referring Provider Physician Assistant; Visit Provider Physician Assistant
DX: Z01.811 Encounter for preprocedural respiratory examination (principal)
CPT/HCPCS: 71046

== ENCOUNTER → 2024-11-13 | Outpatient (CLI) | payer MEDICARE, OTHER, SELFPAY ==
--- NOTE | 2024-11-13 | KNEE_PTH ---
PATIENT: GYPSY SEGOVIA LOC: [facility] U#:[id number] AGE/SX: 79/F ROOM: RE11/13/[address]: Dr. Yassine Santiago MD : 1945 BED: DIS: 11/13/2024 SPEC #: [id number] RECD: 11/14/24 07:40 STATUS: MARTIN REQ #: [id number] KERI: 11/13/24 00:[address]: Yassine Santiago DEPT: SURGICAL PATHOLOGY RECD BY: Conor Mclean ENTERED: 11/14/24 07:40 SP TYPE: TOTAL KNEE OTHR DR: Dr. Mari Arora MD Tissues: Knee, NOS Procedures: Decalcification bone/plaque Surgery Specimen Level IV HEADER OPERATION: Left total knee arthroplasty PRE-OP DIAGNOSIS: Left knee grade 4 primary osteoarthritis TISSUE SUBMITTED: Left knee bone and tissue MICROSCOPIC DIAGNOSIS BONE, LEFT KNEE TOTAL ARTHROPLASTY: Bone with completely worn cartilage on the articular surface, synovium, and fibrous tissueJ Sailors MD, 11/18/2024 MICROSCOPIC DESCRIPTION Slides are reviewed. GROSS DESCRIPTION Received is one container labeled with the patient's name and not further designated. The specimen consists of multiple slices of bone measuring in aggregate 9 x 8 x 2 cm. 2 fragments of severely eroded, C-shaped meniscal tissue measuring in aggregate 7 x 2 x 1 cm are also present. The bony fragments display severe degenerative changes including eburnation and peripheral osteophyte formation. Charge Preparation Technician sections of soft tissue are submitted in cassette 1 and a medical field representative section of an eburnated area of the bone is submitted in cassette 2 after decalcification. RS2. EH 11/14/24 CPT:64466, 25846, TC:5
== END | disposition home or self-care (01) ==
LOC: LABSPEC 16:23
PROVIDERS: PCP Internal Medicine; Visit Provider Orthopaedic Surgery
DX: Z96.652 Presence of left artificial knee joint (principal)
CPT/HCPCS: 88305; 88311

== ENCOUNTER 2024-11-18 15:28 | Emergency (ER) | payer MEDICARE, OTHER, SELFPAY ==
[2024-11-18 15:29] VITALS: BP 194/84; PULSE 105; RESP 22; TEMP 36.6; O2SAT 97
[2024-11-18 15:30] VITALS: BMI 37.5
--- NOTE | 2024-11-18 15:42 | ED.VIS.GI ---
HPI HPI - GI History of Present Illness Chief Complaint: Constipation Narrative Narrative: 79-year-old female past medical history of hypertension, had knee replacement surgery by Dr. Santiago on Wednesday of last week, approximately 6 days ago. She states that she has not had a bowel movement since then and tomorrow will be 1 week. She usually goes daily. She is taking oxycodone for pain. She was told that this can cause constipation as well as the anesthesia. Over the last 24 to 48 hours she has had nausea and vomiting as well. She vomited 3-4 times yesterday and once today. She states she is no longer experiencing flatulence. No prior abdominal surgeries. She has tried [id number] medications and laxatives. She tried drinking half a bottle of magnesium citrate but vomited. She presents because of the constipation and lack of bowel movement. [facility] Medical History FHx: total knee replacement Home Medications ?Medication ?Instructions ?Recorded ?Last Taken ?Type amlodipine 10 mg tablet 10 mg PO DAILY 12/30/16 12/30/16 History aspirin 81 mg tablet,delayed 162 mg PO QHS 12/30/16 12/29/16 History release (Adult Low Dose Aspirin) carvedilol 25 mg tablet (Coreg) 50 mg PO 12/30/16 12/30/16 History docusate sodium 100 mg capsule 100 mg PO DAILY ##20 12/30/16 Unknown Rx (DOK) glimepiride 4 mg tablet 8 mg PO DAILY 12/30/16 12/30/16 History insulin glargine 100 unit/mL (3 26 units subcut QHS 12/30/16 12/30/16 History mL) subcutaneous pen (Lantus Solostar U-100 Insulin) lisinopril 40 mg tablet (Zestril) 40 mg PO 12/30/16 12/30/16 History lovastatin 20 mg tablet 20 mg PO QHS 12/30/16 12/29/16 History metformin 500 mg 24 hr 500 mg PO 12/30/16 12/30/16 History tablet,extended release (gastric retention) oxycodone-acetaminophen 5 mg-325 1 - 2 tab PO Q4H PRN PRN Pain #20 12/30/16 Unknown Rx mg tablet tabs terazosin 2 mg capsule 4 mg PO QHS 12/30/16 12/29/16 History Allergy/AdvReac Type Severity Reaction Status Date / Time prednisone Allergy Itching Verified 11/18/24 15:37 Social History Smoking Status: Never smoker ROS ROS ED ROS Narrative Review of systems positive for nausea and vomiting. Positive constipation. No fevers or chills. No abdominal pain. She states that she does not even have the urge to have a bowel movement. No exacerbating or alleviating factors. EXAM Physical Exam Narrative Exam Narrative: Afebrile. Vital signs noted. Nontoxic-appearing. Cardiovascular examination reveals intermittent tachycardia. Lungs are clear to auscultation bilaterally. The abdomen is soft and nontender with positive bowel sounds. No guarding or rebound. Neurological examination is nonfocal, nonlateralizing. Inspection of the left knee does reveal surgical wound with martell in place, without surrounding erythema. Const Vital Signs: 11/18/24 15:29 Temperature 97.8 F Temperature Source Temporal Pulse Rate 105 H Respiratory Rate 22 H Blood Pressure 194/84 H Blood Pressure Mean 120 Pulse Ox 97 Oxygen Delivery Method Room Air MDM MDM MDM Narrative Medical decision making narrative: Differential diagnosis includes but not limited to ileus versus bowel obstruction versus constipation versus gastroenteritis. X-rays were obtained of the abdomen and at least 2 views and interpreted by myself independently. On my independent interpretation of her x-rays, she has a moderate to large amount of stool throughout her colon, but no evidence of obstruction. I reviewed the radiology report which confirms my independent interpretation and they comment on the calcified uterine fibroid. Chaperoned rectal examination did not reveal rectal fecal impaction. There is only a small amount of stool in the rectal vault. Patient was given a Zofran ODT and had requested an enema. She was given an enema by the RN. Patient was unable to have a large bowel movement after the enema. She would like to be discharged to continue her magnesium citrate. She had been given a bottle here to start. At this point in time, I do not feel she requires observation or admission. I feel she can be discharged to follow-up. Return instructions to the emergency department reviewed. Disposition is discharged home in stable condition. History & Record Review Discussion w/independent historian: Patient Radiography Diagnostic Testing: Clinical Impression(s) from Imaging Studies Abdomen X-Ray 11/18/24 15:45 IMPRESSION: Moderate fecal retention. No abnormal bowel dilation to suggest obstruction. Calcified granuloma in the left lung base. Calcified uterine fibroid. Negative for pneumoperitoneum. Mild degenerative changes of the spine. Left inferior pelvic tilt. [facility] T[facility] Chief Complaint: Constipation ED Provider: Adonis Doyle Dx/Rx/DC Orders Clinical Impression: Constipation, History of total left knee replacement Instructions: ED Constipation (Adult) Prescriptions: No Action carvedilol [Coreg] 25 MG tablet 50 mg PO aspirin [Adult Low Dose Aspirin] 81 MG tablet,delayed release (DR/EC) 162 mg PO QHS terazosin 2 MG capsule 4 mg PO QHS amlodipine 10 MG tablet 10 mg PO DAILY glimepiride 4 MG tablet 8 mg PO DAILY lovastatin 20 MG tablet 20 mg PO QHS lisinopril [Zestril] 40 MG tablet 40 mg PO metformin 500 MG tablet,ER christophe.retention 24 hr 500 mg PO insulin glargine [Lantus Solostar U-100 Insulin] 100 UNITS/ML insulin pen 26 units subcut QHS oxycodone-acetaminophen 1 TABLET tablet 1 - 2 tab PO Q4H PRN PRN (Reason: Pain) Qty: 20 0RF docusate sodium [DOK] 100 MG capsule 100 mg PO DAILY Qty: 20 0RF Primary Care Provider: Mari Arora Referrals: Mari Arora MD [Primary Care Provider] - 3-5 Days if not improving Activity Restrictions/Additional Instructions: Take the magnesium citrate as directed previously. Follow-up with your orthopedic surgeon as scheduled. Return with new or worsening symptoms. Print Language: Faroese Disposition Disposition: Home, Self Care
--- NOTE | 2024-11-18 15:45 | RAD_ITS ---
PROCEDURE: Abdomen radiographs REASON FOR EXAM: CONSTIPATION TECHNIQUE: Four views of the abdomen and pelvis COMPARISON: None FINDINGS: See impression RAD/Abd Decub and/or Erect(Portabl IMPRESSION: Moderate fecal retention. No abnormal bowel dilation to suggest obstruction. Calcified granuloma in the left lung base. Calcified uterine fibroid. Negative for pneumoperitoneum. Mild degenerative c hanges of the spine. Left inferior pelvic tilt. Reading Location: [facility]
[2024-11-18] MEDS: Ondansetron ODT 4 MG Tablet PO (16:59)
[2024-11-18] MEDS: Magnesium Citrate 300 ML PO (18:02)
--- NOTE | 2024-11-18 18:05 | ED.RN ---
PT DID NOT HAVE RESULTS FROM DIGITAL IMPACTION. SOAP SUDS ENEMA HAD MODERATE RESULTS. PT WANTED TO DO THE MAG CITRATE AT HOME D/T BEING UNCOMFORTABLE ON THE BSC. PT HAD MODERATE RESULTS AND WAS GIVEN VERBAL AND WRITTEN EDUCATION ON THE USE OF PAIN MEDS, ZOFRAN, AND THE MAG CITRATE
[2024-11-18 18:08] VITALS: BP 154/89; PULSE 89; RESP 18; TEMP 36.6; O2SAT 98
== END 2024-11-18 18:09 | disposition home or self-care (01) ==
PROVIDERS: Emergency Provider Emergency Medicine; PCP Internal Medicine; Referring Provider Emergency Medicine; Visit Provider Emergency Medicine
DX: K59.00 Constipation, unspecified (principal); R11.2 Nausea with vomiting, unspecified; I10 Essential (primary) hypertension; Z96.652 Presence of left artificial knee joint
CPT/HCPCS: 74019; 99284

== ENCOUNTER → 2024-11-22 | Outpatient (CLI) | payer MEDICARE, OTHER, SELFPAY ==
--- NOTE | 2024-11-22 15:14 | VDLE_ITS ---
Reason For Study Reason For Study: L Knee Effusion RIGHT LEFT CFV is compressible, spontaneous, phasic, competent GSV is normal. and demonstrates normal augmentation. CFV is compressible, spontaneous, phasic, competent, Procedure and demonstrates normal augmentation. This is a venous duplex using B-mode, color flow and FV is compressible, spontaneous, phasic, competent and spectral Doppler. demonstrates normal augmentation. Exam performed in department. POP V is compressible, spontaneous, phasic, competent A preliminary report was called and/or faxed to and demonstrates normal augmentation. JAZMYN Patino. T/P Trunk is compressible. PTV is compressible. LT PerV is compressible. Nonvascularized structure noted in the popliteal fossa measuring 1.34x3.12x2.60cm. VL/Venous Duplex US, Unilateral Interpretation Summary Deep veins of the left lower extremity are patent and compressible segmentally. There is no evidence of left lower extremity deep vein thrombosis. Valvular competence appears intact within the p roximal deep venous system on the left . The left great saphenous vein appears patent and compressible segmentally. A no n-vascular, heterogeneous structure is noted in the left popliteal space, measuring 1.34 cm x 3.12 cm x 2.60 cm. This probably represnts a popliteal cyst. Clinical correlation is advised. The right common femoral vein is patent and co mpressible . Ordering Physician: Ruth Dawson Referring Physician: Ruth Dawson Performed By: Consuelo Goodman
== END | disposition home or self-care (01) ==
LOC: CVS 14:50
PROVIDERS: PCP Internal Medicine; Referring Provider Physician Assistant; Visit Provider Physician Assistant
DX: M25.462 Effusion, left knee (principal); M79.605 Pain in left leg
CPT/HCPCS: 93971